=== PATIENT | male | born 1945 | race Caucasian/White ===

== ENCOUNTER → 2023-09-09 08:15 | Outpatient (REF) | payer MEDICARE, SELFPAY ==
[2023-09-09 10:01] LABS: Hematocrit 37.2 % (39.0-52.0); Hemoglobin 11.9 g/dL (13.0-18.0); Mean Corpuscular Volume 93.7 fL (80.0-94.0); Mean Platelet Volume 12.5 fL (7.4-10.4); Platelet Count 120 10^3/uL (130-400); Red Blood Cell Count 3.97 10^6/uL (4.70-6.10); Red Cell Dist. Width 18.1 % (11.5-14.5); White Blood Cell Count 21.5 10^3/uL (4.8-10.8)
[2023-09-09 10:20] LABS: ALT (SGPT) 33 U/L (0-50); AST (SGOT) 44 U/L (17-59); Albumin 3.4 g/dl (3.5-5.0); Alkaline Phosphatase 206 U/L (38-126); Blood Urea Nitrogen 12 mg/dl (9-20); Calcium 9.1 mg/dl (8.4-10.2); Carbon Dioxide 24 mmol/L (22-30); Chloride 104 mmol/L (98-107); Glucose 126 mg/dl (70-99); Potassium 3.7 mmol/L (3.5-5.1); Sodium 138 mmol/L (135-145); Total Bilirubin 0.5 mg/dl (0.2-1.3); Total Protein 5.8 g/dl (6.3-8.2); eGFR > 60.00
[2023-09-09 11:23] LABS: Atypical Lymphocytes 4 %; Band Neutrophils 14 % (0-3); Eosinophils 2 % (0-6); Lymphocytes 7 % (20-51); Metamyelocytes 5 % (-); Monocytes 10 % (2-9); Segmented Neutrophils 56 % (42-75)
[2023-09-09 11:24] LABS: Anisocytosis 1+; Normal RBC Morphology No; Platelets Checked Yes
[2023-09-09 11:25] LABS: Hypochromasia 1+; Ovalocytes 1+; Polychromasia 1+
[2023-09-09 11:26] LABS: Acanthocytes FEW; Total Cells Counted 100
== END ==
LOC: REG 08:15
PROVIDERS: ATTENDING PHYSICIAN Internal Medicine Cardiovascular Disease; FAMILY PHYSICIAN Family Medicine; REFERRING PHYSICIAN Nurse Practitioner Adult Health
DX: C78.7 Secondary malignant neoplasm of liver and intrahepatic bile duct (principal); C18.2 Malignant neoplasm of ascending colon; D64.9 Anemia, unspecified; D50.9 Iron deficiency anemia, unspecified; Z95.2 Presence of prosthetic heart valve; I48.0 Paroxysmal atrial fibrillation; Z79.01 Long term (current) use of anticoagulants
CPT/HCPCS: 36415; 80053; 85025; 85610

== ENCOUNTER → 2023-09-23 09:04 | Outpatient (REF) | payer MEDICARE, SELFPAY ==
[2023-09-23 09:57] LABS: % Basophils 0.4 % (0-2); % Eosinophils 0.9 % (0-6); % Immature Granulocytes 2.8 % (0-0.5); % Lymphocytes 13.2 % (20.5-51.1); % Monocytes 15.1 % (1.7-9.3); % Neutrophils 67.6 % (42.2-75.2); Absolute Basophils 0.1 10^3/uL (0-0.2); Absolute Eosinophils 0.1 10^3/uL (0-0.7); Absolute Immature Granulocytes 0.4 10^3/uL (0-0.05); Absolute Lymphocytes 1.8 10^3/uL (1.2-3.4); Absolute Neutrophils 9.1 10^3/uL (1.4-6.5); Hematocrit 34.9 % (39.0-52.0); Hemoglobin 11.4 g/dL (13.0-18.0); Mean Corp Hgb Conc. 32.7 g/dL (33.0-37.0); Mean Corpuscular Volume 91.8 fL (80.0-94.0); Nucleated Red Blood Cells % 0 % (-); Red Cell Dist. Width 18.3 % (11.5-14.5); White Blood Cell Count 13.4 10^3/uL (4.8-10.8)
[2023-09-23 10:08] LABS: INR 1.59; PT 18.8 Sec (11.4-14.6)
[2023-09-23 10:33] LABS: ALT (SGPT) 33 U/L (0-50); AST (SGOT) 54 U/L (17-59); Albumin 3.8 g/dl (3.5-5.0); Alkaline Phosphatase 231 U/L (38-126); Blood Urea Nitrogen 12 mg/dl (9-20); Calcium 8.8 mg/dl (8.4-10.2); Carbon Dioxide 23 mmol/L (22-30); Chloride 107 mmol/L (98-107); Glucose 132 mg/dl (70-99); Potassium 3.8 mmol/L (3.5-5.1); Sodium 136 mmol/L (135-145); Total Bilirubin 0.5 mg/dl (0.2-1.3); Total Protein 6.1 g/dl (6.3-8.2); eGFR > 60.00
[2023-09-23 10:56] LABS: Platelet Count 96 10^3/uL (130-400)
== END ==
LOC: REG 09:04
PROVIDERS: ATTENDING PHYSICIAN Nurse Practitioner Adult Health; FAMILY PHYSICIAN Family Medicine; REFERRING PHYSICIAN Internal Medicine Cardiovascular Disease
DX: Z95.2 Presence of prosthetic heart valve (principal); I48.0 Paroxysmal atrial fibrillation; Z79.01 Long term (current) use of anticoagulants; C78.7 Secondary malignant neoplasm of liver and intrahepatic bile duct; C18.2 Malignant neoplasm of ascending colon; D64.9 Anemia, unspecified; D50.9 Iron deficiency anemia, unspecified
CPT/HCPCS: 36415; 80053; 85025; 85610

== ENCOUNTER → 2023-10-07 10:02 | Outpatient (REF) | payer MEDICARE, SELFPAY ==
[2023-10-07 11:23] LABS: % Basophils 0.5 % (0-2); % Eosinophils 1.2 % (0-6); % Immature Granulocytes 4.9 % (0-0.5); % Lymphocytes 12.1 % (20.5-51.1); % Neutrophils 68.3 % (42.2-75.2); Absolute Basophils 0.1 10^3/uL (0-0.2); Absolute Eosinophils 0.2 10^3/uL (0-0.7); Absolute Immature Granulocytes 0.6 10^3/uL (0-0.05); Absolute Lymphocytes 1.6 10^3/uL (1.2-3.4); Absolute Monocytes 1.7 10^3/uL (0.1-0.6); Absolute Neutrophils 8.9 10^3/uL (1.4-6.5); Hematocrit 35.1 % (39.0-52.0); Hemoglobin 11.3 g/dL (13.0-18.0); Mean Corp Hgb Conc. 32.2 g/dL (33.0-37.0); Mean Corpuscular Hgb 30.2 pg (27.0-31.0); Mean Corpuscular Volume 93.9 fL (80.0-94.0); Mean Platelet Volume 11.9 fL (7.4-10.4); Nucleated Red Blood Cells % 0 % (-); Platelet Count 95 10^3/uL (130-400); Red Blood Cell Count 3.74 10^6/uL (4.70-6.10); White Blood Cell Count 12.9 10^3/uL (4.8-10.8)
[2023-10-07 11:41] LABS: INR 1.71; PT 19.9 Sec (11.4-14.6)
[2023-10-07 11:53] LABS: ALT (SGPT) 43 U/L (0-50); AST (SGOT) 58 U/L (17-59); Albumin 3.8 g/dl (3.5-5.0); Alkaline Phosphatase 194 U/L (38-126); Blood Urea Nitrogen 13 mg/dl (9-20); Calcium 9.2 mg/dl (8.4-10.2); Carbon Dioxide 29 mmol/L (22-30); Chloride 102 mmol/L (98-107); Glucose 209 mg/dl (70-99); Potassium 4.3 mmol/L (3.5-5.1); Sodium 136 mmol/L (135-145); Total Bilirubin 0.5 mg/dl (0.2-1.3); Total Protein 6.1 g/dl (6.3-8.2); eGFR > 60.00
== END ==
LOC: REG 10:02
PROVIDERS: ATTENDING PHYSICIAN Nurse Practitioner Adult Health; FAMILY PHYSICIAN Family Medicine; REFERRING PHYSICIAN Internal Medicine Cardiovascular Disease
DX: Z95.2 Presence of prosthetic heart valve (principal); Z86.73 Personal history of transient ischemic attack (TIA), and cerebral infarction without residual deficits; Z79.01 Long term (current) use of anticoagulants; C78.7 Secondary malignant neoplasm of liver and intrahepatic bile duct; C18.2 Malignant neoplasm of ascending colon; D64.9 Anemia, unspecified; D50.9 Iron deficiency anemia, unspecified
CPT/HCPCS: 36415; 80053; 85025; 85610

== ENCOUNTER → 2023-10-14 09:35 | Outpatient (REF) | payer MEDICARE, SELFPAY ==
[2023-10-14 11:37] LABS: CEA 16.1 ng/ml
== END ==
LOC: RAD 09:35
PROVIDERS: ATTENDING PHYSICIAN Internal Medicine Hematology & Oncology; FAMILY PHYSICIAN Family Medicine
DX: C78.7 Secondary malignant neoplasm of liver and intrahepatic bile duct (principal); C18.2 Malignant neoplasm of ascending colon; D64.9 Anemia, unspecified; D50.9 Iron deficiency anemia, unspecified
CPT/HCPCS: 36415; 71260; 74177; 82378; Q9967

== ENCOUNTER → 2023-10-27 09:56 | Outpatient (REF) | payer MEDICARE, SELFPAY ==
[2023-10-27 10:55] LABS: % Basophils 0.3 % (0-2); % Eosinophils 0.9 % (0-6); % Immature Granulocytes 4.3 % (0-0.5); % Lymphocytes 10.1 % (20.5-51.1); % Monocytes 9.5 % (1.7-9.3); % Neutrophils 74.9 % (42.2-75.2); Absolute Eosinophils 0.1 10^3/uL (0-0.7); Absolute Immature Granulocytes 0.6 10^3/uL (0-0.05); Absolute Lymphocytes 1.3 10^3/uL (1.2-3.4); Absolute Monocytes 1.3 10^3/uL (0.1-0.6); Hematocrit 36.1 % (39.0-52.0); Hemoglobin 11.2 g/dL (13.0-18.0); Mean Corpuscular Hgb 29.9 pg (27.0-31.0); Mean Corpuscular Volume 96.3 fL (80.0-94.0); Mean Platelet Volume 12.8 fL (7.4-10.4); Nucleated Red Blood Cells % 0 % (-); Platelet Count 127 10^3/uL (130-400); Red Blood Cell Count 3.75 10^6/uL (4.70-6.10); Red Cell Dist. Width 17.7 % (11.5-14.5); White Blood Cell Count 13.3 10^3/uL (4.8-10.8)
[2023-10-27 11:11] LABS: INR 2.08; PT 23.3 Sec (11.4-14.6)
[2023-10-27 12:25] LABS: ALT (SGPT) 30 U/L (0-50); AST (SGOT) 58 U/L (17-59); Albumin 3.9 g/dl (3.5-5.0); Alkaline Phosphatase 148 U/L (38-126); Blood Urea Nitrogen 14 mg/dl (9-20); Calcium 9.2 mg/dl (8.4-10.2); Carbon Dioxide 22 mmol/L (22-30); Chloride 108 mmol/L (98-107); Glucose 278 mg/dl (70-99); Potassium 4.1 mmol/L (3.5-5.1); Sodium 136 mmol/L (135-145); Total Bilirubin 0.6 mg/dl (0.2-1.3); Total Protein 6.2 g/dl (6.3-8.2); eGFR > 60.00
== END ==
LOC: REG 09:56
PROVIDERS: ATTENDING PHYSICIAN Nurse Practitioner Adult Health; FAMILY PHYSICIAN Family Medicine; REFERRING PHYSICIAN Internal Medicine Cardiovascular Disease
DX: Z95.2 Presence of prosthetic heart valve (principal); Z86.73 Personal history of transient ischemic attack (TIA), and cerebral infarction without residual deficits; C18.2 Malignant neoplasm of ascending colon; D64.9 Anemia, unspecified; D50.9 Iron deficiency anemia, unspecified
CPT/HCPCS: 36415; 80053; 85025; 85610

== ENCOUNTER → 2023-11-10 08:29 | Outpatient (REF) | payer MEDICARE, SELFPAY ==
[2023-11-10 09:25] LABS: % Basophils 0.6 % (0-2); % Eosinophils 1.4 % (0-6); % Immature Granulocytes 0.4 % (0-0.5); % Lymphocytes 15.7 % (20.5-51.1); % Monocytes 13.5 % (1.7-9.3); % Neutrophils 68.4 % (42.2-75.2); Absolute Eosinophils 0.1 10^3/uL (0-0.7); Absolute Lymphocytes 0.8 10^3/uL (1.2-3.4); Absolute Monocytes 0.7 10^3/uL (0.1-0.6); Absolute Neutrophils 3.4 10^3/uL (1.4-6.5); Hematocrit 33.7 % (39.0-52.0); Hemoglobin 10.5 g/dL (13.0-18.0); Mean Corp Hgb Conc. 31.2 g/dL (33.0-37.0); Mean Corpuscular Hgb 30.2 pg (27.0-31.0); Mean Corpuscular Volume 96.8 fL (80.0-94.0); Mean Platelet Volume 12.8 fL (7.4-10.4); Nucleated Red Blood Cells % 0 % (-); Platelet Count 101 10^3/uL (130-400); Red Blood Cell Count 3.48 10^6/uL (4.70-6.10); Red Cell Dist. Width 16.4 % (11.5-14.5)
[2023-11-10 09:38] LABS: Protein/creatinine Ratio 0.7; Urine Protein 63 mg/dl
[2023-11-10 09:39] LABS: INR 2.49; PT 26.8 Sec (11.4-14.6)
[2023-11-10 09:49] LABS: ALT (SGPT) 22 U/L (0-50); AST (SGOT) 38 U/L (17-59); Albumin 3.8 g/dl (3.5-5.0); Alkaline Phosphatase 77 U/L (38-126); Blood Urea Nitrogen 18 mg/dl (9-20); Calcium 9.4 mg/dl (8.4-10.2); Carbon Dioxide 22 mmol/L (22-30); Chloride 104 mmol/L (98-107); Glucose 235 mg/dl (70-99); Potassium 4.3 mmol/L (3.5-5.1); Sodium 134 mmol/L (135-145); Total Bilirubin 0.6 mg/dl (0.2-1.3); Total Protein 6.2 g/dl (6.3-8.2); eGFR > 60.00
== END ==
LOC: REG 08:29
PROVIDERS: ATTENDING PHYSICIAN Internal Medicine Cardiovascular Disease; FAMILY PHYSICIAN Internal Medicine Hematology & Oncology
DX: Z95.2 Presence of prosthetic heart valve (principal); C78.7 Secondary malignant neoplasm of liver and intrahepatic bile duct; C18.2 Malignant neoplasm of ascending colon; D64.9 Anemia, unspecified; D50.9 Iron deficiency anemia, unspecified
CPT/HCPCS: 36415; 80053; 82570; 84156; 85025; 85610

== ENCOUNTER → 2023-11-24 08:04 | Outpatient (REF) | payer MEDICARE, SELFPAY ==
[2023-11-24 09:19] LABS: INR 2.61; PT 27.8 Sec (11.4-14.6)
[2023-11-24 09:20] LABS: % Basophils 0.8 % (0-2); % Eosinophils 2.5 % (0-6); % Immature Granulocytes 0.3 % (0-0.5); % Lymphocytes 16.7 % (20.5-51.1); % Monocytes 11.4 % (1.7-9.3); % Neutrophils 68.3 % (42.2-75.2); Absolute Eosinophils 0.1 10^3/uL (0-0.7); Absolute Lymphocytes 0.6 10^3/uL (1.2-3.4); Absolute Monocytes 0.4 10^3/uL (0.1-0.6); Absolute Neutrophils 2.5 10^3/uL (1.4-6.5); Hematocrit 31.1 % (39.0-52.0); Hemoglobin 10.1 g/dL (13.0-18.0); Mean Corp Hgb Conc. 32.5 g/dL (33.0-37.0); Mean Corpuscular Hgb 30.6 pg (27.0-31.0); Mean Corpuscular Volume 94.2 fL (80.0-94.0); Nucleated Red Blood Cells % 0 % (-); Red Cell Dist. Width 15.6 % (11.5-14.5); White Blood Cell Count 3.6 10^3/uL (4.8-10.8)
[2023-11-24 09:53] LABS: ALT (SGPT) 52 U/L (0-50); AST (SGOT) 86 U/L (17-59); Albumin 3.8 g/dl (3.5-5.0); Alkaline Phosphatase 83 U/L (38-126); Blood Urea Nitrogen 15 mg/dl (9-20); Calcium 9.1 mg/dl (8.4-10.2); Carbon Dioxide 20 mmol/L (22-30); Chloride 108 mmol/L (98-107); Glucose 118 mg/dl (70-99); Potassium 4.1 mmol/L (3.5-5.1); Sodium 135 mmol/L (135-145); Total Bilirubin 0.5 mg/dl (0.2-1.3); Total Protein 6.2 g/dl (6.3-8.2); eGFR > 60.00
[2023-11-24 10:24] LABS: Urine Protein 85 mg/dl (0-12)
[2023-11-24 10:41] LABS: Mean Platelet Volume 12.1 fL (7.4-10.4); Platelet Count 88 10^3/uL (130-400)
[2023-11-24 11:23] LABS: Glycohemoglobin (HgbA1c) 7.7 % (4.0-5.6)
[2023-11-24 15:37] LABS: Microalbumin, Random Urine 36.2 mg/dl (0.6-1.7); Microalbumin/creatinine Ratio 375.5 mg/g
== END ==
LOC: REG 08:04
PROVIDERS: ATTENDING PHYSICIAN Internal Medicine Hematology & Oncology; FAMILY PHYSICIAN Family Medicine; REFERRING PHYSICIAN Internal Medicine Cardiovascular Disease
DX: E11.40 Type 2 diabetes mellitus with diabetic neuropathy, unspecified (principal); Z95.2 Presence of prosthetic heart valve; Z86.73 Personal history of transient ischemic attack (TIA), and cerebral infarction without residual deficits; Z79.01 Long term (current) use of anticoagulants; C78.7 Secondary malignant neoplasm of liver and intrahepatic bile duct; C18.2 Malignant neoplasm of ascending colon; D64.9 Anemia, unspecified; D50.9 Iron deficiency anemia, unspecified
CPT/HCPCS: 36415; 80053; 82043; 82570; 83036; 84156; 85025; 85610

== ENCOUNTER → 2023-12-08 08:54 | Outpatient (REF) | payer MEDICARE, SELFPAY ==
[2023-12-08 09:59] LABS: % Basophils 0.7 % (0-2); % Eosinophils 1.4 % (0-6); % Immature Granulocytes 0.3 % (0-0.5); % Lymphocytes 20.2 % (20.5-51.1); % Monocytes 16.1 % (1.7-9.3); % Neutrophils 61.3 % (42.2-75.2); Absolute Lymphocytes 0.6 10^3/uL (1.2-3.4); Absolute Monocytes 0.5 10^3/uL (0.1-0.6); Absolute Neutrophils 1.8 10^3/uL (1.4-6.5); Hematocrit 30.9 % (39.0-52.0); Hemoglobin 9.9 g/dL (13.0-18.0); Mean Corpuscular Hgb 30.3 pg (27.0-31.0); Mean Corpuscular Volume 94.5 fL (80.0-94.0); Mean Platelet Volume 11.8 fL (7.4-10.4); Nucleated Red Blood Cells % 0 % (-); Platelet Count 82 10^3/uL (130-400); Red Blood Cell Count 3.27 10^6/uL (4.70-6.10); Red Cell Dist. Width 15.4 % (11.5-14.5); White Blood Cell Count 2.9 10^3/uL (4.8-10.8)
[2023-12-08 10:11] LABS: PT 34.4 Sec (11.4-14.6)
[2023-12-08 10:12] LABS: Urine Protein 73 mg/dl (0-12)
[2023-12-08 10:22] LABS: ALT (SGPT) 41 U/L (0-50); AST (SGOT) 60 U/L (17-59); Albumin 3.6 g/dl (3.5-5.0); Alkaline Phosphatase 71 U/L (38-126); Blood Urea Nitrogen 18 mg/dl (9-20); Calcium 9.1 mg/dl (8.4-10.2); Carbon Dioxide 21 mmol/L (22-30); Chloride 105 mmol/L (98-107); Glucose 194 mg/dl (70-99); Potassium 4.2 mmol/L (3.5-5.1); Sodium 133 mmol/L (135-145); Total Bilirubin 0.5 mg/dl (0.2-1.3); eGFR > 60.00
== END ==
LOC: RAD 08:54
PROVIDERS: ATTENDING PHYSICIAN Internal Medicine Hematology & Oncology; FAMILY PHYSICIAN Family Medicine; REFERRING PHYSICIAN Internal Medicine Cardiovascular Disease
DX: Z95.2 Presence of prosthetic heart valve (principal); Z86.73 Personal history of transient ischemic attack (TIA), and cerebral infarction without residual deficits; Z79.01 Long term (current) use of anticoagulants; C78.7 Secondary malignant neoplasm of liver and intrahepatic bile duct; C18.2 Malignant neoplasm of ascending colon; D64.9 Anemia, unspecified; D50.9 Iron deficiency anemia, unspecified
CPT/HCPCS: 36415; 80053; 82570; 84156; 85025; 85610

== ENCOUNTER → 2023-12-22 08:40 | Outpatient (REF) | payer MEDICARE, SELFPAY ==
[2023-12-22 09:20] LABS: % Basophils 0.3 % (0-2); % Eosinophils 1.1 % (0-6); % Lymphocytes 21.3 % (20.5-51.1); % Monocytes 15.5 % (1.7-9.3); % Neutrophils 61.8 % (42.2-75.2); Absolute Lymphocytes 0.7 10^3/uL (1.2-3.4); Absolute Monocytes 0.5 10^3/uL (0.1-0.6); Absolute Neutrophils 2.2 10^3/uL (1.4-6.5); Hematocrit 32.3 % (39.0-52.0); Hemoglobin 10.3 g/dL (13.0-18.0); Mean Corp Hgb Conc. 31.9 g/dL (33.0-37.0); Mean Corpuscular Volume 94.2 fL (80.0-94.0); Mean Platelet Volume 11.8 fL (7.4-10.4); Nucleated Red Blood Cells % 0 % (-); Platelet Count 88 10^3/uL (130-400); Red Blood Cell Count 3.43 10^6/uL (4.70-6.10); Red Cell Dist. Width 15.1 % (11.5-14.5); White Blood Cell Count 3.5 10^3/uL (4.8-10.8)
[2023-12-22 09:41] LABS: INR 2.74; PT 28.9 Sec (11.4-14.6)
[2023-12-22 09:55] LABS: ALT (SGPT) 33 U/L (0-50); AST (SGOT) 62 U/L (17-59); Albumin 3.9 g/dl (3.5-5.0); Alkaline Phosphatase 68 U/L (38-126); Blood Urea Nitrogen 21 mg/dl (9-20); Calcium 9.3 mg/dl (8.4-10.2); Carbon Dioxide 21 mmol/L (22-30); Chloride 108 mmol/L (98-107); Glucose 115 mg/dl (70-99); Potassium 4.4 mmol/L (3.5-5.1); Sodium 137 mmol/L (135-145); Total Bilirubin 0.6 mg/dl (0.2-1.3); Total Protein 6.3 g/dl (6.3-8.2); eGFR > 60.00
[2023-12-22 10:05] LABS: Urine Protein 85 mg/dl (0-12)
== END ==
LOC: REG 08:40
PROVIDERS: ATTENDING PHYSICIAN Internal Medicine Hematology & Oncology; FAMILY PHYSICIAN Internal Medicine Cardiovascular Disease; REFERRING PHYSICIAN Family Medicine
DX: Z95.2 Presence of prosthetic heart valve (principal); Z86.73 Personal history of transient ischemic attack (TIA), and cerebral infarction without residual deficits; Z79.01 Long term (current) use of anticoagulants; C78.7 Secondary malignant neoplasm of liver and intrahepatic bile duct; C18.2 Malignant neoplasm of ascending colon; D64.9 Anemia, unspecified; D50.9 Iron deficiency anemia, unspecified
CPT/HCPCS: 36415; 80053; 82570; 84156; 85025; 85610

== ENCOUNTER → 2024-01-05 09:37 | Outpatient (REF) | payer MEDICARE, SELFPAY ==
[2024-01-05 10:32] LABS: % Basophils 0.3 % (0-2); % Eosinophils 1.2 % (0-6); % Immature Granulocytes 0.3 % (0-0.5); % Lymphocytes 23.6 % (20.5-51.1); % Monocytes 15.5 % (1.7-9.3); % Neutrophils 59.1 % (42.2-75.2); Absolute Lymphocytes 0.8 10^3/uL (1.2-3.4); Absolute Monocytes 0.5 10^3/uL (0.1-0.6); Absolute Neutrophils 1.9 10^3/uL (1.4-6.5); Hematocrit 31.2 % (39.0-52.0); Hemoglobin 10.3 g/dL (13.0-18.0); Mean Corpuscular Hgb 29.9 pg (27.0-31.0); Mean Corpuscular Volume 90.7 fL (80.0-94.0); Mean Platelet Volume 11.4 fL (7.4-10.4); Nucleated Red Blood Cells % 0 % (-); Platelet Count 106 10^3/uL (130-400); Red Blood Cell Count 3.44 10^6/uL (4.70-6.10); Red Cell Dist. Width 15.6 % (11.5-14.5); White Blood Cell Count 3.2 10^3/uL (4.8-10.8)
[2024-01-05 10:45] LABS: INR 2.19; PT 24.2 Sec (11.4-14.6)
[2024-01-05 11:04] LABS: ALT (SGPT) 41 U/L (0-50); AST (SGOT) 66 U/L (17-59); Albumin 3.9 g/dl (3.5-5.0); Alkaline Phosphatase 66 U/L (38-126); Blood Urea Nitrogen 16 mg/dl (9-20); Calcium 9.1 mg/dl (8.4-10.2); Carbon Dioxide 20 mmol/L (22-30); Chloride 110 mmol/L (98-107); Glucose 108 mg/dl (70-99); Potassium 4.2 mmol/L (3.5-5.1); Sodium 138 mmol/L (135-145); Total Bilirubin 0.6 mg/dl (0.2-1.3); Total Protein 6.3 g/dl (6.3-8.2); eGFR > 60.00
[2024-01-05 11:22] LABS: Urine Protein 52 mg/dl (0-12)
== END ==
LOC: REG 09:37
PROVIDERS: ATTENDING PHYSICIAN Internal Medicine Hematology & Oncology; FAMILY PHYSICIAN Family Medicine; REFERRING PHYSICIAN Internal Medicine Cardiovascular Disease
DX: Z95.2 Presence of prosthetic heart valve (principal); Z86.73 Personal history of transient ischemic attack (TIA), and cerebral infarction without residual deficits; Z79.01 Long term (current) use of anticoagulants; C78.7 Secondary malignant neoplasm of liver and intrahepatic bile duct; C18.2 Malignant neoplasm of ascending colon; D64.9 Anemia, unspecified; D50.9 Iron deficiency anemia, unspecified
CPT/HCPCS: 36415; 80053; 82570; 84156; 85025; 85610

== ENCOUNTER → 2024-01-19 10:01 | Outpatient (REF) | payer MEDICARE, SELFPAY ==
[2024-01-19 11:19] LABS: % Basophils 0.5 % (0-2); % Eosinophils 1.1 % (0-6); % Immature Granulocytes 0.3 % (0-0.5); % Lymphocytes 20.2 % (20.5-51.1); % Monocytes 17.8 % (1.7-9.3); % Neutrophils 60.1 % (42.2-75.2); Absolute Lymphocytes 0.8 10^3/uL (1.2-3.4); Absolute Monocytes 0.7 10^3/uL (0.1-0.6); Absolute Neutrophils 2.3 10^3/uL (1.4-6.5); Hematocrit 31.5 % (39.0-52.0); Hemoglobin 10.4 g/dL (13.0-18.0); Mean Corpuscular Hgb 29.5 pg (27.0-31.0); Mean Corpuscular Volume 89.2 fL (80.0-94.0); Mean Platelet Volume 12.7 fL (7.4-10.4); Nucleated Red Blood Cells % 0 % (-); Platelet Count 111 10^3/uL (130-400); Red Blood Cell Count 3.53 10^6/uL (4.70-6.10); Red Cell Dist. Width 16.1 % (11.5-14.5); White Blood Cell Count 3.8 10^3/uL (4.8-10.8)
[2024-01-19 11:44] LABS: ALT (SGPT) 37 U/L (0-50); AST (SGOT) 63 U/L (17-59); Albumin 3.8 g/dl (3.5-5.0); Alkaline Phosphatase 58 U/L (38-126); Blood Urea Nitrogen 25 mg/dl (9-20); Calcium 9.4 mg/dl (8.4-10.2); Carbon Dioxide 23 mmol/L (22-30); Chloride 105 mmol/L (98-107); Glucose 175 mg/dl (70-99); Potassium 4.7 mmol/L (3.5-5.1); Sodium 135 mmol/L (135-145); Total Bilirubin 0.7 mg/dl (0.2-1.3); Total Protein 6.2 g/dl (6.3-8.2); eGFR 56.93
[2024-01-19 11:48] LABS: INR 2.17
[2024-01-19 15:04] LABS: Protein/creatinine Ratio 0.5; Urine Protein 49 mg/dl
[2024-01-19 19:24] LABS: CEA 27.1 ng/ml
== END ==
LOC: REG 10:01
PROVIDERS: ATTENDING PHYSICIAN Internal Medicine Hematology & Oncology; FAMILY PHYSICIAN Family Medicine
DX: Z95.2 Presence of prosthetic heart valve (principal); Z86.73 Personal history of transient ischemic attack (TIA), and cerebral infarction without residual deficits; Z79.01 Long term (current) use of anticoagulants; R79.89 Other specified abnormal findings of blood chemistry
CPT/HCPCS: 36415; 80053; 82378; 82570; 84156; 85025; 85610

== ENCOUNTER → 2024-01-28 07:36 | Outpatient (REF) | payer MEDICARE, SELFPAY | LOC: RAD 07:36 | PROVIDERS: ATTENDING PHYSICIAN Internal Medicine Hematology & Oncology; FAMILY PHYSICIAN Family Medicine | DX: C18.2 Malignant neoplasm of ascending colon (principal); D64.9 Anemia, unspecified; D50.9 Iron deficiency anemia, unspecified; C78.7 Secondary malignant neoplasm of liver and intrahepatic bile duct | CPT/HCPCS: 71260; 74177; Q9967 ==

== ENCOUNTER → 2024-02-02 08:01 | Outpatient (REF) | payer MEDICARE, SELFPAY ==
[2024-02-02 08:45] LABS: % Basophils 0.5 % (0-2); % Eosinophils 1.5 % (0-6); % Immature Granulocytes 0.2 % (0-0.5); % Lymphocytes 23.1 % (20.5-51.1); % Monocytes 15.6 % (1.7-9.3); % Neutrophils 59.1 % (42.2-75.2); Absolute Eosinophils 0.1 10^3/uL (0-0.7); Absolute Monocytes 0.6 10^3/uL (0.1-0.6); Absolute Neutrophils 2.4 10^3/uL (1.4-6.5); Hematocrit 33.2 % (39.0-52.0); Hemoglobin 10.5 g/dL (13.0-18.0); Mean Corp Hgb Conc. 31.6 g/dL (33.0-37.0); Mean Corpuscular Hgb 29.2 pg (27.0-31.0); Mean Corpuscular Volume 92.2 fL (80.0-94.0); Nucleated Red Blood Cells % 0 % (-); Platelet Count 123 10^3/uL (130-400); Red Cell Dist. Width 16.2 % (11.5-14.5); White Blood Cell Count 4.1 10^3/uL (4.8-10.8)
[2024-02-02 08:53] LABS: INR 3.29; PT 33.5 Sec (11.4-14.6)
[2024-02-02 08:59] LABS: Protein/creatinine Ratio 0.6; Urine Protein 61 mg/dl
[2024-02-02 09:09] LABS: ALT (SGPT) 44 U/L (0-50); AST (SGOT) 87 U/L (17-59); Albumin 3.9 g/dl (3.5-5.0); Alkaline Phosphatase 60 U/L (38-126); Blood Urea Nitrogen 23 mg/dl (9-20); Calcium 9.4 mg/dl (8.4-10.2); Carbon Dioxide 22 mmol/L (22-30); Chloride 109 mmol/L (98-107); Glucose 85 mg/dl (70-99); Potassium 4.4 mmol/L (3.5-5.1); Sodium 137 mmol/L (135-145); Total Bilirubin 0.7 mg/dl (0.2-1.3); Total Protein 6.3 g/dl (6.3-8.2); eGFR > 60.00
== END ==
LOC: REG 08:01
PROVIDERS: Internal Medicine Hematology & Oncology; ATTENDING PHYSICIAN Internal Medicine Cardiovascular Disease; FAMILY PHYSICIAN Family Medicine
DX: Z95.2 Presence of prosthetic heart valve (principal); Z86.73 Personal history of transient ischemic attack (TIA), and cerebral infarction without residual deficits; Z79.01 Long term (current) use of anticoagulants; C78.7 Secondary malignant neoplasm of liver and intrahepatic bile duct; C18.2 Malignant neoplasm of ascending colon; D64.9 Anemia, unspecified; D50.9 Iron deficiency anemia, unspecified
CPT/HCPCS: 36415; 80053; 82570; 84156; 85025; 85610

== ENCOUNTER → 2024-02-16 08:34 | Outpatient (REF) | payer MEDICARE, SELFPAY ==
[2024-02-16 09:59] LABS: INR 2.81; PT 29.5 Sec (11.4-14.6)
[2024-02-16 10:06] LABS: Urine Protein 74 mg/dl (0-12)
[2024-02-16 10:41] LABS: ALT (SGPT) 62 U/L (0-50); AST (SGOT) 93 U/L (17-59); Albumin 4.1 g/dl (3.5-5.0); Alkaline Phosphatase 66 U/L (38-126); Blood Urea Nitrogen 20 mg/dl (9-20); Calcium 9.2 mg/dl (8.4-10.2); Carbon Dioxide 20 mmol/L (22-30); Chloride 107 mmol/L (98-107); Glucose 96 mg/dl (70-99); Potassium 4.3 mmol/L (3.5-5.1); Sodium 136 mmol/L (135-145); Total Bilirubin 0.8 mg/dl (0.2-1.3); Total Protein 6.5 g/dl (6.3-8.2); eGFR > 60.00
[2024-02-16 12:59] LABS: % Basophils 0.6 % (0-2); % Eosinophils 1.3 % (0-6); % Immature Granulocytes 0.2 % (0-0.5); % Monocytes 13.9 % (1.7-9.3); Absolute Eosinophils 0.1 10^3/uL (0-0.7); Absolute Monocytes 0.7 10^3/uL (0.1-0.6); Absolute Neutrophils 3.5 10^3/uL (1.4-6.5); Hematocrit 32.7 % (39.0-52.0); Hemoglobin 10.7 g/dL (13.0-18.0); Mean Corp Hgb Conc. 32.7 g/dL (33.0-37.0); Mean Corpuscular Hgb 29.2 pg (27.0-31.0); Mean Corpuscular Volume 89.1 fL (80.0-94.0); Mean Platelet Volume 12.1 fL (7.4-10.4); Nucleated Red Blood Cells % 0 % (-); Platelet Count 156 10^3/uL (130-400); Red Blood Cell Count 3.67 10^6/uL (4.70-6.10); White Blood Cell Count 5.3 10^3/uL (4.8-10.8)
== END ==
LOC: REG 08:34
PROVIDERS: ATTENDING PHYSICIAN Internal Medicine Cardiovascular Disease; FAMILY PHYSICIAN Family Medicine; REFERRING PHYSICIAN Internal Medicine Hematology & Oncology
DX: Z95.2 Presence of prosthetic heart valve (principal); Z86.73 Personal history of transient ischemic attack (TIA), and cerebral infarction without residual deficits; Z79.01 Long term (current) use of anticoagulants; C78.7 Secondary malignant neoplasm of liver and intrahepatic bile duct; C18.2 Malignant neoplasm of ascending colon; D64.9 Anemia, unspecified; D50.9 Iron deficiency anemia, unspecified
CPT/HCPCS: 36415; 80053; 82570; 84156; 85025; 85610

== ENCOUNTER → 2024-03-01 09:22 | Outpatient (REF) | payer MEDICARE, SELFPAY ==
[2024-03-01 10:44] LABS: % Basophils 0.7 % (0-2); % Eosinophils 1.3 % (0-6); % Immature Granulocytes 0.2 % (0-0.5); % Lymphocytes 16.2 % (20.5-51.1); % Neutrophils 67.6 % (42.2-75.2); Absolute Eosinophils 0.1 10^3/uL (0-0.7); Absolute Lymphocytes 0.9 10^3/uL (1.2-3.4); Absolute Monocytes 0.8 10^3/uL (0.1-0.6); Absolute Neutrophils 3.6 10^3/uL (1.4-6.5); Mean Corp Hgb Conc. 32.3 g/dL (33.0-37.0); Mean Corpuscular Hgb 28.3 pg (27.0-31.0); Mean Corpuscular Volume 87.8 fL (80.0-94.0); Mean Platelet Volume 11.9 fL (7.4-10.4); Nucleated Red Blood Cells % 0 % (-); Platelet Count 143 10^3/uL (130-400); Red Blood Cell Count 3.53 10^6/uL (4.70-6.10); Red Cell Dist. Width 16.9 % (11.5-14.5); White Blood Cell Count 5.4 10^3/uL (4.8-10.8)
[2024-03-01 10:54] LABS: INR 1.95; PT 22.1 Sec (11.4-14.6)
[2024-03-01 11:13] LABS: ALT (SGPT) 60 U/L (0-50); AST (SGOT) 84 U/L (17-59); Albumin 3.9 g/dl (3.5-5.0); Alkaline Phosphatase 68 U/L (38-126); Blood Urea Nitrogen 19 mg/dl (9-20); Carbon Dioxide 22 mmol/L (22-30); Chloride 106 mmol/L (98-107); Glucose 114 mg/dl (70-99); Potassium 4.7 mmol/L (3.5-5.1); Sodium 134 mmol/L (135-145); Total Bilirubin 0.9 mg/dl (0.2-1.3); Total Protein 6.1 g/dl (6.3-8.2); eGFR > 60.00
[2024-03-01 11:16] LABS: Protein/creatinine Ratio 0.6; Urine Protein 73 mg/dl
== END ==
LOC: REG 09:22
PROVIDERS: ATTENDING PHYSICIAN Internal Medicine Cardiovascular Disease; FAMILY PHYSICIAN Family Medicine; OTHER PHYSICIAN Internal Medicine Hematology & Oncology
DX: Z95.2 Presence of prosthetic heart valve (principal); Z86.73 Personal history of transient ischemic attack (TIA), and cerebral infarction without residual deficits; Z79.01 Long term (current) use of anticoagulants; C78.7 Secondary malignant neoplasm of liver and intrahepatic bile duct; C18.2 Malignant neoplasm of ascending colon; D64.9 Anemia, unspecified; D50.9 Iron deficiency anemia, unspecified
CPT/HCPCS: 36415; 80053; 82570; 84156; 85025; 85610

== ENCOUNTER → 2024-03-15 08:38 | Outpatient (REF) | payer MEDICARE, SELFPAY ==
[2024-03-15 11:32] LABS: Protein/creatinine Ratio 0.8; Urine Protein 82 mg/dl
[2024-03-15 13:28] LABS: % Basophils 0.6 % (0-2); % Eosinophils 0.6 % (0-6); % Immature Granulocytes 0.2 % (0-0.5); % Lymphocytes 14.8 % (20.5-51.1); % Monocytes 16.5 % (1.7-9.3); % Neutrophils 67.3 % (42.2-75.2); Absolute Lymphocytes 0.8 10^3/uL (1.2-3.4); Absolute Monocytes 0.9 10^3/uL (0.1-0.6); Absolute Neutrophils 3.5 10^3/uL (1.4-6.5); Hematocrit 32.5 % (39.0-52.0); Hemoglobin 10.5 g/dL (13.0-18.0); Mean Corp Hgb Conc. 32.3 g/dL (33.0-37.0); Mean Corpuscular Hgb 28.8 pg (27.0-31.0); Mean Corpuscular Volume 89.3 fL (80.0-94.0); Mean Platelet Volume 12.1 fL (7.4-10.4); Nucleated Red Blood Cells % 0 % (-); Platelet Count 144 10^3/uL (130-400); Red Blood Cell Count 3.64 10^6/uL (4.70-6.10); Red Cell Dist. Width 17.1 % (11.5-14.5); White Blood Cell Count 5.2 10^3/uL (4.8-10.8)
[2024-03-15 13:48] LABS: INR 2.72; PT 28.8 Sec (11.4-14.6)
[2024-03-15 13:50] LABS: ALT (SGPT) 68 U/L (0-50); AST (SGOT) 111 U/L (17-59); Albumin 3.8 g/dl (3.5-5.0); Alkaline Phosphatase 69 U/L (38-126); Blood Urea Nitrogen 17 mg/dl (9-20); Calcium 9.1 mg/dl (8.4-10.2); Carbon Dioxide 20 mmol/L (22-30); Chloride 105 mmol/L (98-107); Glucose 107 mg/dl (70-99); Potassium 4.1 mmol/L (3.5-5.1); Sodium 133 mmol/L (135-145); Total Bilirubin 0.8 mg/dl (0.2-1.3); eGFR > 60.00
== END ==
LOC: REG 08:38
PROVIDERS: ATTENDING PHYSICIAN Internal Medicine Hematology & Oncology; FAMILY PHYSICIAN Family Medicine; REFERRING PHYSICIAN Internal Medicine Cardiovascular Disease
DX: C78.7 Secondary malignant neoplasm of liver and intrahepatic bile duct (principal); C18.2 Malignant neoplasm of ascending colon; D64.9 Anemia, unspecified; D50.9 Iron deficiency anemia, unspecified; Z95.2 Presence of prosthetic heart valve; Z86.73 Personal history of transient ischemic attack (TIA), and cerebral infarction without residual deficits; Z79.01 Long term (current) use of anticoagulants
CPT/HCPCS: 36415; 80053; 82570; 84156; 85025; 85610

== ENCOUNTER → 2024-03-29 09:08 | Outpatient (REF) | payer MEDICARE, SELFPAY ==
[2024-03-29 10:12] LABS: % Basophils 0.4 % (0-2); % Eosinophils 0.4 % (0-6); % Immature Granulocytes 0.4 % (0-0.5); % Lymphocytes 14.6 % (20.5-51.1); % Monocytes 15.8 % (1.7-9.3); % Neutrophils 68.4 % (42.2-75.2); Absolute Lymphocytes 0.7 10^3/uL (1.2-3.4); Absolute Monocytes 0.8 10^3/uL (0.1-0.6); Absolute Neutrophils 3.4 10^3/uL (1.4-6.5); Hematocrit 29.8 % (39.0-52.0); Hemoglobin 9.7 g/dL (13.0-18.0); Mean Corp Hgb Conc. 32.6 g/dL (33.0-37.0); Mean Corpuscular Hgb 28.2 pg (27.0-31.0); Mean Corpuscular Volume 86.6 fL (80.0-94.0); Mean Platelet Volume 12.5 fL (7.4-10.4); Nucleated Red Blood Cells % 0 % (-); Platelet Count 160 10^3/uL (130-400); Red Blood Cell Count 3.44 10^6/uL (4.70-6.10); Red Cell Dist. Width 17.6 % (11.5-14.5)
[2024-03-29 10:23] LABS: INR 1.87; PT 21.4 Sec (11.4-14.6)
[2024-03-29 10:39] LABS: Protein/creatinine Ratio 0.6; Urine Protein 84 mg/dl
== END ==
LOC: REG 09:08
PROVIDERS: ATTENDING PHYSICIAN Internal Medicine Hematology & Oncology; FAMILY PHYSICIAN Family Medicine; REFERRING PHYSICIAN Internal Medicine Cardiovascular Disease
DX: C78.7 Secondary malignant neoplasm of liver and intrahepatic bile duct (principal); C18.2 Malignant neoplasm of ascending colon; D64.9 Anemia, unspecified; D50.9 Iron deficiency anemia, unspecified; Z95.2 Presence of prosthetic heart valve; Z79.01 Long term (current) use of anticoagulants
CPT/HCPCS: 36415; 82570; 84156; 85025; 85610

== ENCOUNTER → 2024-04-06 08:25 | Outpatient (REF) | payer MEDICARE, SELFPAY ==
[2024-04-06 11:40] LABS: Glycohemoglobin (HgbA1c) 7.2 % (4.0-5.6)
[2024-04-08 00:27] LABS: SSA 52 (Ro)(ENA) Ab, IgG 2 AU/mL (0-40); SSA 60 (Ro)(ENA) Ab, IgG 0 AU/mL (0-40); SSB (La)(ENA) Ab, IgG 0 AU/mL (0-40)
== END ==
LOC: REG 08:25
PROVIDERS: ATTENDING PHYSICIAN Family Medicine
DX: R68.2 Dry mouth, unspecified (principal); E11.9 Type 2 diabetes mellitus without complications
CPT/HCPCS: 36415; 83036; 86235

== ENCOUNTER → 2024-04-12 08:10 | Outpatient (REF) | payer MEDICARE, SELFPAY ==
[2024-04-12 09:31] LABS: % Basophils 0.3 % (0-2); % Eosinophils 0.8 % (0-6); % Immature Granulocytes 0.3 % (0-0.5); % Lymphocytes 13.8 % (20.5-51.1); % Monocytes 14.4 % (1.7-9.3); % Neutrophils 70.4 % (42.2-75.2); Absolute Eosinophils 0.1 10^3/uL (0-0.7); Absolute Monocytes 1.1 10^3/uL (0.1-0.6); Absolute Neutrophils 5.2 10^3/uL (1.4-6.5); Hematocrit 31.2 % (39.0-52.0); Hemoglobin 10.1 g/dL (13.0-18.0); Mean Corp Hgb Conc. 32.4 g/dL (33.0-37.0); Mean Corpuscular Hgb 27.2 pg (27.0-31.0); Mean Corpuscular Volume 84.1 fL (80.0-94.0); Mean Platelet Volume 11.5 fL (7.4-10.4); Nucleated Red Blood Cells % 0 % (-); Platelet Count 173 10^3/uL (130-400); Red Blood Cell Count 3.71 10^6/uL (4.70-6.10); Red Cell Dist. Width 17.6 % (11.5-14.5); White Blood Cell Count 7.4 10^3/uL (4.8-10.8)
[2024-04-12 09:37] LABS: PT 38.3 Sec (11.4-14.6)
[2024-04-12 09:54] LABS: ALT (SGPT) 106 U/L (0-50); AST (SGOT) 182 U/L (17-59); Albumin 3.6 g/dl (3.5-5.0); Alkaline Phosphatase 87 U/L (38-126); Blood Urea Nitrogen 14 mg/dl (9-20); Carbon Dioxide 22 mmol/L (22-30); Chloride 103 mmol/L (98-107); Glucose 136 mg/dl (70-99); Potassium 4.4 mmol/L (3.5-5.1); Sodium 137 mmol/L (135-145); Total Bilirubin 0.8 mg/dl (0.2-1.3); eGFR > 60.00
[2024-04-12 10:11] LABS: Protein/creatinine Ratio 0.9; Urine Protein 96 mg/dl
== END ==
LOC: REG 08:10
PROVIDERS: ATTENDING PHYSICIAN Internal Medicine Cardiovascular Disease; FAMILY PHYSICIAN Family Medicine; REFERRING PHYSICIAN Internal Medicine Hematology & Oncology
DX: Z95.2 Presence of prosthetic heart valve (principal); Z79.01 Long term (current) use of anticoagulants; C78.7 Secondary malignant neoplasm of liver and intrahepatic bile duct; C18.2 Malignant neoplasm of ascending colon; D64.9 Anemia, unspecified; D50.9 Iron deficiency anemia, unspecified
CPT/HCPCS: 36415; 80053; 82570; 84156; 85025; 85610

== ENCOUNTER → 2024-04-26 07:55 | Outpatient (REF) | payer MEDICARE, SELFPAY ==
[2024-04-26 09:08] LABS: INR 3.14; PT 32.2 Sec (11.4-14.6)
[2024-04-26 09:22] LABS: % Basophils 0.4 % (0-2); % Eosinophils 0.6 % (0-6); % Immature Granulocytes 0.2 % (0-0.5); % Lymphocytes 19.5 % (20.5-51.1); % Monocytes 14.3 % (1.7-9.3); Absolute Monocytes 0.7 10^3/uL (0.1-0.6); Absolute Neutrophils 3.2 10^3/uL (1.4-6.5); Hematocrit 28.6 % (39.0-52.0); Hemoglobin 9.1 g/dL (13.0-18.0); Mean Corp Hgb Conc. 31.8 g/dL (33.0-37.0); Mean Corpuscular Hgb 26.9 pg (27.0-31.0); Mean Corpuscular Volume 84.6 fL (80.0-94.0); Mean Platelet Volume 12.2 fL (7.4-10.4); Nucleated Red Blood Cells % 0 % (-); Platelet Count 167 10^3/uL (130-400); Red Blood Cell Count 3.38 10^6/uL (4.70-6.10); Red Cell Dist. Width 18.2 % (11.5-14.5)
[2024-04-26 10:07] LABS: Urine Protein 60 mg/dl
[2024-04-26 10:46] LABS: ALT (SGPT) 67 U/L (0-50); AST (SGOT) 106 U/L (17-59); Albumin 3.4 g/dl (3.5-5.0); Alkaline Phosphatase 82 U/L (38-126); Blood Urea Nitrogen 13 mg/dl (9-20); Calcium 8.6 mg/dl (8.4-10.2); Carbon Dioxide 17 mmol/L (22-30); Chloride 105 mmol/L (98-107); Glucose 122 mg/dl (70-99); Potassium 4.1 mmol/L (3.5-5.1); Sodium 136 mmol/L (135-145); Total Bilirubin 0.7 mg/dl (0.2-1.3); Total Protein 5.6 g/dl (6.3-8.2); eGFR > 60.00
[2024-04-26 12:26] LABS: Protein/creatinine Ratio 0.5
== END ==
LOC: REG 07:55
PROVIDERS: ATTENDING PHYSICIAN Internal Medicine Hematology & Oncology; FAMILY PHYSICIAN Family Medicine; REFERRING PHYSICIAN Internal Medicine Cardiovascular Disease
DX: C78.7 Secondary malignant neoplasm of liver and intrahepatic bile duct (principal); C18.2 Malignant neoplasm of ascending colon; D64.9 Anemia, unspecified; D50.9 Iron deficiency anemia, unspecified; Z95.2 Presence of prosthetic heart valve; Z79.01 Long term (current) use of anticoagulants
CPT/HCPCS: 36415; 80053; 82570; 84156; 85025; 85610

== ENCOUNTER → 2024-04-27 16:08 | Outpatient (REF) | payer MEDICARE, SELFPAY ==
[2024-04-27 11:05] LABS: CEA 176 ng/ml
== END ==
LOC: OIDL 16:08
PROVIDERS: ATTENDING PHYSICIAN Internal Medicine Hematology & Oncology
DX: C78.7 Secondary malignant neoplasm of liver and intrahepatic bile duct (principal); C18.2 Malignant neoplasm of ascending colon
CPT/HCPCS: 82378

== ENCOUNTER → 2024-05-05 08:00 | Outpatient (REF) | payer MEDICARE, SELFPAY | LOC: RAD 08:00 | PROVIDERS: ATTENDING PHYSICIAN Internal Medicine Hematology & Oncology; FAMILY PHYSICIAN Family Medicine | DX: C78.7 Secondary malignant neoplasm of liver and intrahepatic bile duct (principal); C18.2 Malignant neoplasm of ascending colon; D64.9 Anemia, unspecified; D50.9 Iron deficiency anemia, unspecified | CPT/HCPCS: 71260; 74177; Q9967 ==

== ENCOUNTER → 2024-05-10 09:20 | Outpatient (REF) | payer MEDICARE, SELFPAY ==
[2024-05-10 10:07] LABS: % Basophils 0.6 % (0-2); % Eosinophils 0.3 % (0-6); % Immature Granulocytes 0.3 % (0-0.5); % Lymphocytes 13.2 % (20.5-51.1); % Monocytes 15.8 % (1.7-9.3); % Neutrophils 69.8 % (42.2-75.2); Absolute Lymphocytes 0.9 10^3/uL (1.2-3.4); Absolute Monocytes 1.1 10^3/uL (0.1-0.6); Absolute Neutrophils 4.7 10^3/uL (1.4-6.5); Hematocrit 29.2 % (39.0-52.0); Hemoglobin 9.5 g/dL (13.0-18.0); Mean Corp Hgb Conc. 32.5 g/dL (33.0-37.0); Mean Corpuscular Hgb 27.4 pg (27.0-31.0); Mean Corpuscular Volume 84.1 fL (80.0-94.0); Mean Platelet Volume 11.8 fL (7.4-10.4); Nucleated Red Blood Cells % 0 % (-); Platelet Count 183 10^3/uL (130-400); Red Blood Cell Count 3.47 10^6/uL (4.70-6.10); Red Cell Dist. Width 18.7 % (11.5-14.5); White Blood Cell Count 6.7 10^3/uL (4.8-10.8)
[2024-05-10 10:15] LABS: Protein/creatinine Ratio 0.4; Urine Protein 68 mg/dl
[2024-05-10 10:22] LABS: INR 4.64
[2024-05-10 10:52] LABS: ALT (SGPT) 35 U/L (0-50); AST (SGOT) 72 U/L (17-59); Albumin 3.5 g/dl (3.5-5.0); Alkaline Phosphatase 75 U/L (38-126); Blood Urea Nitrogen 13 mg/dl (9-20); Calcium 8.5 mg/dl (8.4-10.2); Carbon Dioxide 20 mmol/L (22-30); Chloride 104 mmol/L (98-107); Glucose 130 mg/dl (70-99); Potassium 4.3 mmol/L (3.5-5.1); Sodium 135 mmol/L (135-145); Total Bilirubin 0.7 mg/dl (0.2-1.3); Total Protein 5.9 g/dl (6.3-8.2); eGFR > 60.00
== END ==
LOC: REG 09:20
PROVIDERS: ATTENDING PHYSICIAN Internal Medicine Hematology & Oncology; FAMILY PHYSICIAN Internal Medicine Cardiovascular Disease
DX: Z95.2 Presence of prosthetic heart valve (principal); Z79.01 Long term (current) use of anticoagulants
CPT/HCPCS: 36415; 80053; 82570; 84156; 85025; 85610

== ENCOUNTER → 2024-05-17 13:17 | Outpatient (REF) | payer MEDICARE, SELFPAY ==
[2024-05-17 14:30] LABS: % Basophils 0.5 % (0-2); % Eosinophils 0.2 % (0-6); % Immature Granulocytes 0.3 % (0-0.5); % Lymphocytes 13.5 % (20.5-51.1); % Monocytes 14.6 % (1.7-9.3); % Neutrophils 70.9 % (42.2-75.2); Absolute Lymphocytes 0.8 10^3/uL (1.2-3.4); Absolute Monocytes 0.8 10^3/uL (0.1-0.6); Absolute Neutrophils 4.1 10^3/uL (1.4-6.5); Hemoglobin 8.4 g/dL (13.0-18.0); Mean Corp Hgb Conc. 31.1 g/dL (33.0-37.0); Mean Corpuscular Hgb 25.8 pg (27.0-31.0); Mean Corpuscular Volume 82.8 fL (80.0-94.0); Mean Platelet Volume 12.7 fL (7.4-10.4); Nucleated Red Blood Cells % 0 % (-); Platelet Count 159 10^3/uL (130-400); Red Blood Cell Count 3.26 10^6/uL (4.70-6.10); Red Cell Dist. Width 18.9 % (11.5-14.5); White Blood Cell Count 5.8 10^3/uL (4.8-10.8)
[2024-05-17 14:54] LABS: ALT (SGPT) 29 U/L (0-50); AST (SGOT) 60 U/L (17-59); Albumin 3.3 g/dl (3.5-5.0); Alkaline Phosphatase 76 U/L (38-126); Blood Urea Nitrogen 15 mg/dl (9-20); Calcium 8.7 mg/dl (8.4-10.2); Carbon Dioxide 22 mmol/L (22-30); Chloride 104 mmol/L (98-107); Glucose 181 mg/dl (70-99); PT 62.5 Sec (11.4-14.6); Potassium 4.4 mmol/L (3.5-5.1); Sodium 137 mmol/L (135-145); Total Bilirubin 0.5 mg/dl (0.2-1.3); Total Protein 5.7 g/dl (6.3-8.2); eGFR > 60.00
[2024-05-17 15:01] LABS: INR 7.23
[2024-05-17 15:16] LABS: Protein/creatinine Ratio 0.4; Urine Protein 54 mg/dl
== END ==
LOC: REG 13:17
PROVIDERS: ATTENDING PHYSICIAN Internal Medicine Hematology & Oncology; FAMILY PHYSICIAN Family Medicine; REFERRING PHYSICIAN Internal Medicine Cardiovascular Disease
DX: C78.7 Secondary malignant neoplasm of liver and intrahepatic bile duct (principal); C18.2 Malignant neoplasm of ascending colon; D64.9 Anemia, unspecified; D50.9 Iron deficiency anemia, unspecified; Z95.2 Presence of prosthetic heart valve; Z79.01 Long term (current) use of anticoagulants
CPT/HCPCS: 36415; 80053; 82570; 84156; 85025; 85610

== ENCOUNTER 2024-05-31 16:03 | Inpatient (IN) | payer MEDICARE, SELFPAY ==
--- NOTE | 2024-05-31 15:58 | HPS.HSE ---
Addendum entered and electronically signed by Ryan Vieyra MD 05/31/24 18:01:
Code status : DNR/DNI confirmed by LOCK[employer] JOINER
Original Note:
Family Physician
-
Family Physician: Doroteo Reddy DO
Chief Complaint
-
TF from [facility] for further evaluation of endocarditis and fungemia
History of Present Illness
HX from [facility] :
78M HX life long Amoxicillin for Enterococcus Endocarditis, PPM im[plant, HX Mechanical AoVR , chr warfarin admitted to [facility] as of 05/25/24 following found down and trauma alert.
Subsequent evaluation c/w AMS due to TME, Fungemia, sepsis with soft BP but not on pressors. Normalized WCC. Improved AJIT ( Cr 1.7 to 1.29 Know ACdz. Baseline Hgb 9.3. Hgb dropped to 7 with IVF. Tx 1 PRBC at [facility]. HX LVEF 30-35%.
Currently on IV vanco and Meropenem and Micofungin
Somewhat IMU level care at [facility] per my d/w [facility] hospitalist
significant for HTN, CHF, DM-II and metastatic colon cancer on chemotherapy
Medical History
Past Medical History
Past Medical History: Reports Other
Additional Past Medical History:
Metastatic Colon Cancer
BPH / Urinary Retention / Indwelling Holden
Chronic HFrEF
Paroxysmal Atrial Fibrillation
Aortic Stenosis s/p Mechanical AVR
E faecalis Endocarditis
Hypertension
DM-II
Hypothyroidism
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
Chronic Hyponatremia
Nephrolithiasis / Staghorn Calculus
Past Surgical History: Reports Other
Additional Past Surgical History:
Mechanical AVR (2008)
PPM Placement
R ACW Port
Social History
Tobacco: Non-smoker
Alcohol: Occasional
Drug: None
Family History
Family History: Not pertinent and Other (Multiple malignancies in family)
Allergies / Home Medications
Allergies reflects when Allergies were last updated in [facility].
Home Medications with original date entered in [facility]
Allergy/Medication List:
Allergies
Allergy/AdvReac Type Severity Reaction Status Date / Time
sacubitril [From Entresto] Allergy Unknown Unknown Verified 06/05/23 19:22
valsartan [From Entresto] Allergy Unknown Unknown Verified 06/05/23 19:22
Penicillins Allergy 'KILL ME' Verified 06/05/23 19:22
-
anaphylaxis
venom-honey bee Allergy Unknown Verified 06/05/23 19:22
[bee venom (honey bee)]
Home Medications
fenofibrate nanocrystallized 145 mg tablet 145 mg PO DAILY High cholesterol 04/27/20
glipizide 5 mg tablet 5 mg PO QPM Diabetes 04/27/20
levothyroxine 137 mcg tablet 137 mcg PO DAILY Thyroid 04/27/20
metformin 1,000 mg tablet 1,000 mg PO BID@0800,1700 Diabetes 04/27/20
rosuvastatin 40 mg tablet (Crestor) 40 mg PO HS High Cholesterol 04/27/20
amoxicillin 500 mg tablet 500 mg PO TID Infection 08/09/22
ezetimibe 10 mg tablet (Zetia) 10 mg PO DAILY High Cholesterol 08/09/22
tamsulosin 0.4 mg capsule (Flomax) 0.4 mg PO DAILY Urinary Issue 04/11/23
lidocaine-prilocaine 2.5 %-2.5 % topical cream 1 applic topical DAILY PRN prior to port access 05/06/23
losartan 25 mg tablet 25 mg PO DAILY #30 tabs 05/09/23
metoprolol succinate 25 mg tablet,extended release 24 hr 25 mg PO DAILY #30 tabs 05/09/23
spironolactone 25 mg tablet 12.5 mg PO DAILY #30 tabs 05/09/23
warfarin 1 mg tablet (Jantoven) 0.5 mg PO QPM 06/05/23
warfarin 5 mg tablet 5 mg PO QPM 06/05/23
Review of Systems
-
Constitutional: Reports No Symptoms
EENT: Reports No Symptoms
Respiratory: Reports No Symptoms
Cardiac: Reports No Symptoms
Abdomen/GI: Reports No Symptoms
: Reports No Symptoms
Musculoskeletal: Reports No Symptoms
Skin: Reports No Symptoms
Neurological: Reports No Symptoms
Endocrine: Reports No Symptoms
Hematologic/Lymphatic: Reports No Symptoms
Psych: Reports No Symptoms
Physical Exam
Vital Signs
Vital Signs
Temp Pulse Resp BP Pulse Ox
99.1 F 77 16 96/57 98
06/05/23 21:36 06/05/23 21:00 06/05/23 21:00 06/05/23 21:00 06/05/23 19:23
Physical Exam
General: No Apparent Distress, Comfortable and Other (77y M in no acute distress. Mild pallor.)
HEENT: Moist mucous membranes and PERRLA
Respiratory: Clear; No Wheezes, Rales or Rhonchi
Cardiac: S1/S2 (Mechanical S2) and Regular Rhythm; No Murmur
GI: Soft, Non Tender, Non Distended and Normal Bowel Sounds
Genito-urinary: Other (Holden in place draining binta urine into leg bag.)
Musculoskeletal: No Clubbing, No Cyanosis and No Edema
Skin: Other (PORT on Rt chest . Non tender )
Neuro: AO x 3
Psych: Calm and Intact Judgment/Insight
Data Reviewed
-
Old Records: Reviewed
Impression/Plan
-
ASSESSMENT & PLAN
Pending Rx reconciliation
78M HX life long Amoxicillin for Enterococcus Endocarditis, PPM implant, HX Mechanical AoVR , chr warfarin admitted to [facility] as of 05/25/24 following found down and trauma alert. Subsequent evaluation c/w AMS due to TME, Fungemia, sepsis with soft BP
but not on pressors. Normalized WCC. Improved AJIT ( Cr 1.7 to 1.29 Know ACdz. Baseline Hgb 9.3. Hgb dropped to 7 with IVF. Tx 1 PRBC at [facility]. HX LVEF 30-35%. Currently on IV vanco and Meropenem. Somewhat IMU level care at [facility] per my d/w [facility]
hospitalist
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
PS Fungemia POA - on Micafungin
HX life long Amoxicillin for Enterococcus Endocarditis, PPM implant, HX Mechanical AoVR
- concern for Endocarditis
- on Micafungin at [facility]
- on IV vancomycin and Meropenem upon admission
- ID consult
- [facility] card consult for СЕРГЕЙ
HX Metastatic Colon Cancer
�- Hold chemotherapy acutely given active infection.
Mechanical AVR on chr warfarin
HX E faecalis Endocarditis
- currently holding chronic suppression with amoxicillin.
- Daily INR (goal INR 2-3), and adjusting Coumadin accordingly�
Chronic HFrEF- Stable.��
- c/w STANDARD MACHINE STITCHER Toprol and Losartan, resumed Aldactone�
Anemia of Chronic Disease
�- Likely due to malignancy + chemo.
�- Follow admission labs
Benign Hypertension
�- Stable.� Continue home Meds with holding parameters.
DM-II
�- Stable.� Hold metformin acutely.
�- SSI coverage.�
�- A1C was 7.1% in April.
DVT Prophylaxis:� On Coumadin
Code Status:� Full code
IMU
[2024-05-31 16:07] VITALS: BP 122/66
[2024-05-31 16:18] VITALS: BMI 26.4
--- NOTE | 2024-05-31 16:44 | VATNOTE ---
right arm cephalic 20 Intima from [facility] removed due to leaking. Port accessed per protocol.
--- NOTE | 2024-05-31 16:59 | VATNOTE ---
1 set blood cultures obtained via port as per ID order
[2024-05-31 17:07] LABS: ALT (SGPT) 47 U/L (0-50); AST (SGOT) 95 U/L (17-59); Albumin 2.6 g/dl (3.5-5.0); Alkaline Phosphatase 96 U/L (38-126); Blood Urea Nitrogen 21 mg/dl (9-20); Calcium 7.8 mg/dl (8.4-10.2); Carbon Dioxide 20 mmol/L (22-30); Chloride 110 mmol/L (98-107); Estimated Creatinine Clearance 59 ml/min; Glucose 226 mg/dl (70-99); INR 2.55; PT 27.4 Sec (11.4-14.6); Potassium 3.7 mmol/L (3.5-5.1); Sodium 139 mmol/L (135-145); Total Bilirubin 0.7 mg/dl (0.2-1.3); Total Protein 4.9 g/dl (6.3-8.2); eGFR > 60.00
[2024-05-31 17:32] LABS: Hematocrit 26.8 % (39.0-52.0); Hemoglobin 8.6 g/dL (13.0-18.0); Mean Corp Hgb Conc. 32.1 g/dL (33.0-37.0); Mean Corpuscular Hgb 25.6 pg (27.0-31.0); Mean Corpuscular Volume 79.8 fL (80.0-94.0); Red Blood Cell Count 3.36 10^6/uL (4.70-6.10); Red Cell Dist. Width 19.7 % (11.5-14.5); White Blood Cell Count 8.1 10^3/uL (4.8-10.8)
[2024-05-31 18:00] VITALS: BP 110/76
--- NOTE | 2024-05-31 18:12 | PTCARENOTE ---
Patient received via EMS as a direct admit from [facility]. Pt AAOx3 slightly drowsy. Pt V-paced on the monitor. Dr. Vieyra bedside to place orders. VAT accessed pt R subq port. Labs drawn and sent. Vitals and assessment are in see worklist.
Pt oriented to the unit. Pt to be NPO at midnight see orders. is present at the bedside. Updated on plan of care, able to make needs known, call cintron is within reach.
[2024-05-31 18:16] LABS: Glucose - Point of Care 202 mg/dl (70-99)
[2024-05-31 18:33] LABS: Platelet Count 79 10^3/uL (130-400)
[2024-05-31] MEDS: ZETIA 10 MG PO (18:35)
[2024-05-31] MEDS: TOPROL XL 25 MG PO (18:35)
[2024-05-31] MEDS: NOVOLOG FLEXPEN-LOW RESISTANCE 2 UNITS SC (18:39)
[2024-05-31 20:00] VITALS: BP 113/64
[2024-05-31 22:00] VITALS: BP 111/61
[2024-05-31] MEDS: CRESTOR 40 MG PO (22:25)
[2024-05-31] MEDS: SEROQUEL 25 MG PO (22:25)
[2024-05-31] MEDS: NSS 500 IV (22:25)
[2024-05-31 23:39] LABS: Glucose - Point of Care 192 mg/dl (70-99)
[2024-06-01] VITALS (9 sets, daily range): BP systolic 106–128; BP diastolic 55–70; BMI 26.4; BMI 26.3
--- NOTE | 2024-06-01 02:57 | PTCARENOTE ---
Pt received from previous shift in bed. AAOx3, [place], forgetful to details. Full physical assessment documented (refer to worklist). STREETCAR STARTER covering house contacted about PRN heparin flush to maintain SubQ port vs IVF KVO. Electronic orders received
(refer to MAR). OOB w/assist x1 and RW -->BR, tolerated activity. R SubQ port w/NSS @ 10 mL/hr. Call cintron within reach, bed alarm active for safety. Plan of care ongoing.
[2024-06-01 05:12] LABS: Hematocrit 28.7 % (39.0-52.0); Hemoglobin 9.1 g/dL (13.0-18.0); Mean Corp Hgb Conc. 31.8 g/dL (33.0-37.0); Mean Corpuscular Hgb 25.4 pg (27.0-31.0); Mean Corpuscular Volume 79.9 fL (80.0-94.0); Platelet Count 163 10^3/uL (130-400); Red Blood Cell Count 3.58 10^6/uL (4.70-6.10); Red Cell Dist. Width 19.9 % (11.5-14.5); White Blood Cell Count 10.8 10^3/uL (4.8-10.8)
[2024-06-01 05:14] LABS: INR 2.33; PT 25.5 Sec (11.4-14.6)
[2024-06-01 05:34] LABS: ALT (SGPT) 43 U/L (0-50); AST (SGOT) 81 U/L (17-59); Albumin 2.7 g/dl (3.5-5.0); Alkaline Phosphatase 104 U/L (38-126); Blood Urea Nitrogen 21 mg/dl (9-20); Calcium 8.1 mg/dl (8.4-10.2); Carbon Dioxide 20 mmol/L (22-30); Chloride 111 mmol/L (98-107); Estimated Creatinine Clearance 54 ml/min; Glucose 161 mg/dl (70-99); Potassium 4.1 mmol/L (3.5-5.1); Sodium 140 mmol/L (135-145); Total Bilirubin 0.8 mg/dl (0.2-1.3); Total Protein 5.1 g/dl (6.3-8.2); eGFR > 60.00
[2024-06-01] MEDS: FLUSH (NSS) 1 FLUSH IV (05:40)
[2024-06-01] MEDS: MYCAMINE 105 MG IV (05:40)
[2024-06-01 06:09] LABS: Glucose - Point of Care 147 mg/dl (70-99)
[2024-06-01] MEDS: NOVOLOG FLEXPEN-LOW RESISTANCE SC (06:10)
[2024-06-01] MEDS: SYNTHROID 137 MCG PO (06:14)
[2024-06-01 06:39] LABS: Urine Albumin 3+ (Neg - Trace); Urine Bilirubin Negative (Negative); Urine Character Very Cloudy (Clear); Urine Color Red; Urine Glucose 1+ (Negative); Urine Ketone Trace (Negative); Urine Leukocyte 2+ (Negative); Urine Nitrite Negative (Negative); Urine Occult Blood 3+ (Negative); Urine Specific Gravity 1.015 (<1.030); Urine Urobilinogen 1+ (Neg - 1+); Urine pH 6.5 (5.0-9.0)
[2024-06-01 07:13] LABS: Urine Bacteria Few (Negative); Urine Red Blood Cell 60-70 /HPF (0-2)
[2024-06-01 08:18] LABS: Glycohemoglobin (HgbA1c) 6.9 % (4.0-5.6)
[2024-06-01] MEDS: TRICOR 145 MG PO (08:25)
[2024-06-01] MEDS: ALDACTONE 12.5 MG PO (08:25)
[2024-06-01] MEDS: COZAAR 25 MG PO (08:25)
[2024-06-01] MEDS: FLOMAX 0.4 MG PO (08:25)
[2024-06-01] MEDS: PROSCAR 5 MG PO (08:26)
[2024-06-01] MEDS: THERAGRAN 1 TABLET PO (08:26)
--- NOTE | 2024-06-01 09:28 | CON.CAR ---
Addendum entered and electronically signed by Lico Lewis MD 06/01/24 11:21:
I saw and examined the patient.
The ECONOMICS CONSULTANT or PA's note was reviewed and I agree with the note.
Comment: General: Well developed, well nourished in NAD.
Neck: Supple, no JVD, HJR, carotids +2 B/L, no bruits bilaterally.
Heart: Non displaced PMI, RRR, 2/6 basal systolic murmur, No S3, S4, no rubs.
Lungs: Clear to auscultation bilaterally, no wheeze, rhonchi, rubs bilaterally,
normal expiratory phase.
Abdomen: Normal bowel sounds, soft, non-tender, non-distended.
Extremities: No clubbing, cyanosis or edema bilaterally.
Neuro: Grossly nonfocal, awake, alert and oriented x3.
Ed has a history of metastatic colon cancer with chronic [place] [employer] AVR prosthetic valve endocarditis treated with long-term amoxicillin, cardiomyopathy ejection fraction of 30-35% status post pacer, A-fib, chronic Coumadin, right occipital CVA,
diabetes. He was admitted to [place] after fall with fevers and chills. His cultures grew fungus and was started on micafungin. He was transferred to [place] to be closer to his doctors. Present time he denies any complaints.
There is no utility in doing a СЕРГЕЙ as patient and do not want to have surgery. He would also be a very high risk redo sternotomy with metastatic colon cancer which has been progressive. I discussed with patient's in detail by phone and
also contacted primary service as well as infectious disease and they are all in agreement with current plan for antibiotics. Otherwise stable cardiology viewpoint. Will sign off, call with questions.
Original Note:
Consultation
Consultation Request
Date/Time Consultation Requested: 06/01/24
Date/Time Consultation Performed: 06/01/24
Requesting Provider: Dr. Hoyt
Performing Provider: Dr. Lewis
Reason for Consultation: Fungemia with h/o endocarditis
Medical History
-
History of Present Illness:
Patient was transferred from [facility] to yesterday for possible СЕРГЕЙ and fungemia, cardiology is now consulted for h/o chronic AVR endocarditis. Patient was admitted to [facility] for a fall 05/25/24. He had fevers and chills and blood cultures grew fungus
and he was started on Micafungin. Patient has a h/o chronic prosthetic aortic valve endocarditis, enterococcus faecalis, treated with long-term amoxicillin since 2013. Due to a h/o anaphylactic penicillin allergy patient completed desensitization
therapy years ago and tolerating chronic amoxicillin, but it appears that amoxicillin was stopped during admission at [facility] and he was given vancomycin and meropenem instead. Patient denies chest pain or SOB. He knows he is at , but does not recall
events from earlier this morning. He has LE edema, but denies orthopnea.
PMH:
Chronic prosthetic aortic valve endocarditis, enterococcus faecalis, treated with long-term amoxicillin since 2013
treated with vancomycin and meropenem at [facility] prior to transfer
h/o anaphylactic penicillin allergy, completed desensitization therapy and tolerating chronic amoxicillin
s/p [employer] Patel mechanical aortic valve replacement 2008
h/o primary colon cancer with metastasis to liver, lung and spine, chemotherapy with FOLFOX starting 04/29/23
CM EF 30-35% by echo 05/07/23
Chronic HFrEF
Paroxysmal atrial fibrillation
Chronic warfarin OAC managed by [facility]
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
s/p Medtronic DC PPM
Type 2 diabetes
Minimal nonobstructive CAD by cardiac catheterization 2008
Past Medical History
Past Medical History: Other (in HPI)
Past Surgical History: Cardiac (Medtronic PPM 2012) and Orthopedic
Social History
Tobacco: Non-Smoker
Alcohol: Occasional
Drug: None
Personal:
Living: With Family
Family History
Family History: Cancer
Allergies / Home Medications
Allergy/AdvReac Type Severity Reaction Status Date / Time
sacubitril [From Entresto] Allergy Unknown Unknown Verified 06/05/23 19:22
valsartan [From Entresto] Allergy Unknown Unknown Verified 06/05/23 19:22
Penicillins Allergy 'KILL ME' Verified 06/05/23 19:22
-
anaphylaxis
venom-honey bee Allergy Unknown Verified 06/05/23 19:22
[bee venom (honey bee)]
�Medication �Instructions �Recorded �Confirmed �Type
fenofibrate nanocrystallized 145 145 mg PO DAILY High cholesterol 04/27/20 05/31/24 History
mg tablet
glipizide 5 mg tablet 5 mg PO QPM Diabetes 04/27/20 05/31/24 History
levothyroxine 137 mcg tablet 137 mcg PO DAILY Thyroid 04/27/20 05/31/24 History
metformin 1,000 mg tablet 1,000 mg PO DAILY Diabetes 04/27/20 05/31/24 History
rosuvastatin 40 mg tablet (Crestor) 40 mg PO HS High Cholesterol 04/27/20 05/31/24 History
ezetimibe 10 mg tablet (Zetia) 10 mg PO QPM High Cholesterol 08/09/22 05/31/24 History
tamsulosin 0.4 mg capsule (Flomax) 0.4 mg PO DAILY Urinary Issue 04/11/23 05/31/24 History
losartan 25 mg tablet 25 mg PO DAILY #30 tabs 05/09/23 05/31/24 Rx
spironolactone 25 mg tablet 12.5 mg (1/2 x 25 mg) PO DAILY #30 05/09/23 05/31/24 Rx
tabs
warfarin 1 mg tablet (Jantoven) 1.5 mg PO SUTUTHSA Blood Clot 06/05/23 05/31/24 History
Prevention/Tx
finasteride 5 mg tablet (Proscar) 5 mg PO DAILY Urinary Issue 06/06/23 05/31/24 History
caspofungin 50 mg intravenous 50 mg IV Q24H 05/31/24 05/31/24 History
solution
metoprolol succinate 25 mg 25 mg PO QPM Heart 05/31/24 05/31/24 History
tablet,extended release 24 hr Disease/Condition
oxycodone-acetaminophen 5 mg-325 1 tab PO Q6HPRN PRN severe pain 05/31/24 05/31/24 History
mg tablet
prochlorperazine maleate 10 mg 10 mg PO Q6HPRN PRN nausea/vomiting 05/31/24 05/31/24 History
tablet
quetiapine 25 mg tablet 25 mg PO HS Mental Health/Anxiety 05/31/24 05/31/24 History
therapeutic multivitamin 1 tab PO DAILY Supplement 05/31/24 05/31/24 History
warfarin 1 mg tablet 2 mg PO MOWEFR Blood Clot 05/31/24 05/31/24 History
Prevention/Tx
Review of Systems
-
History Source: Patient and Family ( and daughter)
All other systems: Negative unless noted
Physical Exam
Vital Signs
Temp Pulse Resp BP Pulse Ox
97.7 F 69 20 108/70 93
06/01/24 07:40 06/01/24 06:00 06/01/24 06:00 06/01/24 06:00 06/01/24 06:00
GEN: NAD. AAO to person, place and situation
HEENT: EOMI, MMM
LUNGS: CTA B/L, no wheezes or rales
CV: Reg, S1/S2, no murmur
ABD: soft, BS+, NT, ND
EXT: +1 B/L LE edema. No clubbing, cyanosis or lesions B/L
NEURO: Gross non-focal
SKIN: Warm, dry and pink. No rash
Lab Results
06/01/24 04:45
06/01/24 04:44
Impression / Plan
-
Primary Care Provider: Dr. Piña
Primary Hogshead Press Operator: Dr. Lewis
Impression:
Transfer from [facility] to for fungemia and h/o AVR endocarditis on chronic antibiotics 05/31/24
Admitted to [facility] with fall, fever and fungemia 05/25/24
Fungemia by cultures at [facility] 05/25/24
Chronic prosthetic aortic valve endocarditis, enterococcus faecalis, treated with long-term amoxicillin since 2013
treated with vancomycin and meropenem at [facility] prior to transfer
h/o anaphylactic penicillin allergy, completed desensitization therapy and tolerating chronic amoxicillin
s/p St. Patel mechanical aortic valve replacement 2008
h/o primary colon cancer with metastasis to liver, lung and spine, chemotherapy with FOLFOX starting 04/29/23
CM EF 30-35% by echo 05/07/23
Chronic HFrEF
Paroxysmal atrial fibrillation
Chronic warfarin OAC managed by [facility]
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
s/p Medtronic DC PPM
Type 2 diabetes
Minimal nonobstructive CAD by cardiac catheterization 2008
Lexiscan sestamibi 06/2017: EF 27% global hypokinesis dilated ventricle, moderate size severe fixed inferior defect
Echo 10/2017: EF 40%, global hypokinesis dilated right ventricle with preserved function, dilated atria, Mac, trace MR, mechanical AV peak/mean gradient 10/5 mmHg, trace to mild TR with normal pulmonary artery pressure
Echo 07/03/21: EF 35-40%, poor endocardial definition, no regional WMA,s tage I diastolic dysfunction, mechanical AVR peak/mean 10/6 mmHg and no aortic regurgitation
Echo 05/07/23: EF 30-35%, s/p mechanical AVR with peak/mean 11/6 mmHg, no aortic regurgitation seen
Plan:
-Patient was transferred from [facility] to yesterday for possible СЕРГЕЙ and fungemia, cardiology is now consulted for h/o chronic AVR endocarditis. Patient was admitted to [facility] for a fall 05/25/24. He had fevers and chills and blood cultures grew fungus
and he was started on Micafungin. Patient has a h/o chronic prosthetic aortic valve endocarditis, enterococcus faecalis, treated with long-term amoxicillin since 2013. Due to a h/o anaphylactic penicillin allergy patient completed desensitization
therapy years ago and tolerating chronic amoxicillin, but it appears that amoxicillin was stopped during admission at [facility] and he was given vancomycin and meropenem instead. Patient denies chest pain or SOB. He knows he is at , but does not recall
events from earlier this morning. He has LE edema, but denies orthopnea.
-Weight is down compared to office visit from 02/03/24 when he weighed 201 lbs. Increased LE edema. Check pro-BNP. Patient was not taking a loop diuretic prior to admission.
-EF was 30-35% by echo 05/07/23.
-Outpatient dose of Toprol XL 25 mg daily @1999 continued
-Outpatient dose of losartan 25 mg daily continued
-Outpatient dose of spironolactone 12.5 mg daily continued
-No Jardiance/Farxiga with h/o mycotic infections.
-ID to see patient and decide on restarting amoxicillin for lifelong suppression therapy for chronic prosthetic valve endocarditis, sounds like therapy was interrupted at [facility] and patient with a h/o anaphylactic penicillin allergy requiring
desensitization therapy years ago.
-Patient is not a candidate for redo AVR therefore will not recommend СЕРГЕЙ.
-INR goal 2-2.5. INRs drawn at lab. Patient taking warfarin 1 mg daily prior to admission.
-Check ECG
--- NOTE | 2024-06-01 10:04 | W.PN.HOSP.TC ---
Today's Communication/Plan
-
See plan
Assessment / Plan
Assessment / Plan
Impression:
78 years old male with history of prosthetic valve endocarditis on amoxicillin suppression, metastatic colon carcinoma recently on chemotherapy and radiation admitted to [facility] on 05/25 with altered mental status post fall.
Was diagnosed with toxic metabolic encephalopathy due to sepsis and fungemia (blood culture 05/25 positive for Alpa 2/2). Patient was initiated on antibiotics while off amoxicillin suppression regimen with vancomycin and later micafungin for
candidemia. Repeated blood cultures negative to date. Workup for trauma was negative. Mental status improved with hydration and antibiotics. Had transient hypotension with acute kidney injury with now creatinine back to baseline. Patient
transferred for evaluation and consideration of СЕРГЕЙ, cardiology/CT surgery evaluation with concern for prosthetic valve endocarditis with fungemia.
Sepsis with fungemia.
Concern for prosthetic valve endocarditis
Widely metastatic colon carcinoma (liver, lung, skin)
� Recently on radiation treatment. Last chemotherapy session 04/27.
Right chest Chemo-Port in place.
Other conditions:
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
Chronic heart failure reduced EF.
Echo 05/26: LVEF 30-35%. Mechanical aortic valve.
Paroxysmal atrial fibrillation
Status post PPM
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
Minimal nonobstructive CAD by catheterization 2008
History of rheumatic fever.
Essential hypertension
Type 2 diabetes NIDDM.
Hypothyroidism on replacement
Dyslipidemia
Anemia of chronic disease
History of UTI/CAUTI
BPH with history of urine retention requiring Holden catheter.
Chronic pain requiring opiates
Plan:*
Fungemia with Alpa blood cultures + 05/25/2024 2 out of 2 with repeated blood cultures negative to date
Remains on micafungin.
Rapid fungemia clearance reassuring hopefully against infected PPM, mechanical aortic valve, Chemo-Port.
Patient declined invasive workup including СЕРГЕЙ, surgical evaluation given advanced colon carcinoma as well as high risk.
ID consultation pending.
Continue micafungin.
Enterococcal endocarditis on amoxicillin suppression 500 mg 3 times daily. History of penicillin allergy requiring desensitization
Had been on vancomycin at the [facility].
Consider to restart amoxicillin suppression.
Chronic CHF reduced EF
Volume status compensated
Continue Aldactone, Cozaar monitoring renal function closely
Paroxysmal atrial fibrillation.
Continue Toprol
Mechanical aortic valve
Continue anticoagulation with warfarin. Goal INR 2.5�3.5
Mild nonobstructive CAD.
Continue beta-fadia
Continue statin
Metastatic to the liver, lungs, skin colon cancer
Rec chest chemotherapy port in place.
Recently on radiation treatment to the skin
Recently on chemotherapy infusion 04/27.
Oncology consultation
Type 2 diabetes
Hemoglobin A1c 6.9.
Diet has been advanced.
Continue basal bolus protocol.
Preadmission regimen glipizide/metformin will be reintroduced later.
BPH with history of retention and multiple UTIs
Monitor closely for
Continue Flomax
DNR
DVT prophylaxis:
Anticipated Discharge: > 48 hours
Subjective/Interval History
-
Date of Service: June 01, 2024
Objective Data
-
Labs:
Laboratory Results
06/01/24 06/01/24
04:44 04:45
WBC 10.8
Hgb 9.1 L
Hct 28.7 L
Plt Count 163 D
PT 25.5 H
INR 2.33
Sodium 140
Potassium 4.1
Chloride 111 H
Carbon Dioxide 20 L
BUN 21 H
Creatinine 1.2
Glucose 161 H
Calcium 8.1 L
Total Bilirubin 0.8
AST 81 H
ALT 43
Alkaline Phosphatase 104
Vital Signs:
Vital Signs
Temp Pulse Resp BP Pulse Ox
97.7 F 69 20 108/70 93
06/01/24 07:40 06/01/24 06:00 06/01/24 06:00 06/01/24 06:00 06/01/24 06:00
I&O
05/31/24 06/01/24 06/02/24
06:59 06:59 06:59
Intake Total 465 / 465
Balance 465 / 465
Physical Exam
-
General: Well Developed, Well Nourished, No Apparent Distress, Comfortable and Conversant; Negative Respiratory Distress
HEENT: Normocephalic, Atraumatic, Nose Appears Normal and Ears Appear Normal; Negative Oxygen
Respiratory: Clear to Auscultation and Non Labored Respirations; Negative Accessory Resp Muscle Use
Cardiac: Regular Rhythm and S1/S2
GI: Soft, Nontender, Nondistended and Normal Bowel Sounds
Genito-urinary: Holden
Skin: Warm and Dry
Neuro: Awake, Alert, Oriented and AO x 3
Psych: Calm and Intact Judgement/Insight
[2024-06-01 10:24] LABS: Glucose - Point of Care 177 mg/dl (70-99)
--- NOTE | 2024-06-01 10:55 | CON.ID ---
Consultation
-
Date/Time Consultation Requested: 05/31/24 16:15
Date/Time Consultation Performed: 06/01/24 10:55
Requesting Provider: Dr Vieyar
Performing Provider: Dr Martell
Reason for Consultation: sepsis, fungemia , eval for endocarditis
Chief Complaint / Past History
Chief Complaint
found down, transferred from [facility]
History of Present Illness
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
chemotherapy (mets to lungs, liver, bones), also a staghorn renal calculus on the L.
He was admitted to [facility] ([facility]) on 05/25/24 after being found down the the bottom of a stairwell, he reported falling down just two stairs but could not be confirmed. On arrival there family reported he had been confused and febrile
for about two days prior to arrival, CXR/CT head/CT c spine/CT CAP - metastatic disease no acute fractures, no visible signs of injury on arrial, 05/25 ua with pyuria 16-20 wbc/hpf but urine culture finalized negative, 05/25 two blood cultures 8
minutes apart with C parapsilosis, 05/27 blood cultures no growth to date, 05/30 repeat blood cultures x2 no growth to date, TTE done: technically difficult study - AV valve grossly normal, MV/TV/PV not well seen, on arrival he was initially started
on vanc and cefepime later same day cefepime switched to meropenem, amoxicillin suppression was ordered but he was unable to take oral meds due to mental status and he missed doses. When yeast resulted in the blood 05/27 repeat blood cultures x2
were done and he was started on caspofungin. The repeat blood cultures were done before patient started caspofungin. His course was complicated by AJIT and he received one dose of steroids. He was planned for transfer here for CT surgery
evaluation. Note that we was due to see hematology outpatient today with question of restarting chemotherapy.
Since arrival here he has been afebrile, bp stable, wbc initially 8.1 now 10.8, hgb 9.1, plt initially 79 now 163, cr 1.2, a1c 6.9, pair blood cultures obtained from port and periphery at approximately the same time (I coordinated with nursing), ua
6-10 wbc/hpf and urine culture in progress, qtc 502, he was started on micafungin overnight but vancomycin was not continued.
Past History
Additional Past Medical History:
Metastatic Colon Cancer
BPH / Urinary Retention / Indwelling Holden
Chronic HFrEF
Paroxysmal Atrial Fibrillation
Aortic Stenosis s/p Mechanical AVR
E faecalis Endocarditis
Hypertension
DM-II
Hypothyroidism
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
Chronic Hyponatremia
Nephrolithiasis / Staghorn Calculus
Additional Past Surgical History:
Mechanical AVR (2008)
PPM Placement
R ACW Port
Allergy History:
sacubitril [From Entresto] Allergy (Unknown, Verified 06/05/23 19:22)
Unknown
valsartan [From Entresto] Allergy (Unknown, Verified 06/05/23 19:22)
Unknown
Penicillins Allergy (Verified 06/05/23 19:22)
'KILL ME' - anaphylaxis
venom-honey bee [bee venom (honey bee)] Allergy (Verified 06/05/23 19:22)
Unknown
Medications Reviewed: Yes
Social History
Tobacco: Non-Smoker
Alcohol: Occasional
Drug: None
Family History
Family History: Not Pertinent
Review of Systems
Review of Systems
General: Fever and Chills
All systems: All other systems were reviewed and were negative
Vital Signs
Temp Pulse Resp BP Pulse Ox
97.7 F 79 26 106/64 96
06/01/24 07:40 06/01/24 10:00 06/01/24 10:00 06/01/24 08:00 06/01/24 08:30
Physical Exam
Physical Exam
Constitutional: No Acute Distress, Chronically Ill and Non-toxic
Cardiovascular: Regular Rate and S1/S2; Negative Murmur or Rub
Pulmonary: Clear and Symmetric; Negative Wheezes, Rales or Rhonchi
Gastrointestinal: Soft, Non Tender, Non Distended and Normal Bowel Sounds
Skin: Warm and Dry; Negative Rash or Jaundice
Lines: Port (no erythema, warmth or tenderness, was not accessed at [facility], accessed here and functional; PPM - no erythema, warmth, swelling or tenderness)
Lab / Diagnostic Study Results
06/01/24 04:45
06/01/24 04:44
PT 25.5 Sec (11.4-14.6) H 06/01/24 04:44
INR 2.33 06/01/24 04:44
Microbiology Results
Micro:
06/01/24 04:45 Urine Culture - Pending
Urine
05/31/24 17:17 Blood Culture - Pending
Blood/Venous
05/31/24 16:52 Blood Culture - Pending
Blood/Venous
Assessment / Plan
Candidemia without a source
Widely metastatic colon cancer
- ua at [facility] minimal pyuria - urine culture finalized negative
- blood cultures 05/25 x2 8 min apart at [facility] both with C parapasilosis
- repeat blood cultures 05/27 x2 done before starting antifungals were no growth to date as of last evening
- will request finalized report of the 05/27 blood cultures tomorrow to confirm clearance
- we obtained paired cultures from the port and periphery 05/31 here - these are on 4 days of echinocandin and less likely to be revealing
- CT a/p without evidence of biliary disease
- note widely metastatic disease 05/05/24 CT a/p of the abdomen here with thickening of the ccecum and terminal ileum - transient translocation a possibility
- no signs of infection of port or pacemaker on external physical exam - no replaced joints
- while TTE was done at [facility] only the AV valve was partially visualized - start with TTE for now; will discuss further with cardiology regarding yeast pending this report
- continue micafungin
- may consider stopping seroquel to allow for fluconazole use pending course
Chronic PV E faecalis endocarditis
Anaphylaxis to penicillin as a child
- restart vancomycin as suppression for now
- I have most of the 2014 records from [place] and have sent relevant files to be scanned into [employer], we will also need cultures from [place] and these have been requested, it may be feasible to consider other, simpler suppressive treatments
[2024-06-01] MEDS: NOVOLOG FLEXPEN-LOW RESISTANCE 1 UNITS SC (11:04)
--- NOTE | 2024-06-01 11:09 | CON.ONC ---
Impression
Impression
Alpa fungemia
chronic endocarditis of mechanical AV, on chronic amoxicillin
metastatic colorectal cancer, with mets to skin, liver, lungs, bone
Plan
Plan
anti-infective therapy per ID, known to Dr. Martell
s/p recent radiation to abd wall mets
Further systemic therapy planned, to begin FOLFIRI in next 1-2 weeks if performance status allows, timing TBD pending conversations with ID
DNR noted
Patient History
History of Present Illness
This is a 78 yo M, patient of Dr. Valladares w/ h/o metastatic colon cancer, who was transferred yesterday from [facility] with new diagnosis of alpa fungemia. He'd presented to [facility] with fever and a fall at home, along with confusion, and was found to have
alpa parapsilosis in blood cultures. He was started on caspofungin and transferred to for cardiac evaluation, in light of chronic endocarditits of mechanical aortic valve, on amoxicillin for >10 years.
Re: his mCRC, he recently finished RT to metastatic skin lesion at the abdominal wall, and is scheduled to start FOLFIRI in the next 1-2 weeks, after recent scans confirmed progression of disease (involving lungs, liver, bone, skin).
He's feeling okay this am, no focal complaints. No plans for cardiac intervention or further testing, as he's not a candidate for any valvular surgery.
Past-Medical/Surgical History
PMH/PMH - as per the HPI
Patient Medication
�Medication �Instructions �Recorded �Confirmed �Last Taken �Type
fenofibrate nanocrystallized 145 145 mg PO DAILY High cholesterol 04/27/20 05/31/24 06/05/23 History
mg tablet
glipizide 5 mg tablet 5 mg PO QPM Diabetes 04/27/20 05/31/24 06/05/23 History
levothyroxine 137 mcg tablet 137 mcg PO DAILY Thyroid 04/27/20 05/31/24 06/05/23 History
metformin 1,000 mg tablet 1,000 mg PO DAILY Diabetes 04/27/20 05/31/24 06/05/23 History
rosuvastatin 40 mg tablet (Crestor) 40 mg PO HS High Cholesterol 04/27/20 05/31/24 05/27/24 20:28 History
ezetimibe 10 mg tablet (Zetia) 10 mg PO QPM High Cholesterol 08/09/22 05/31/24 06/05/23 History
tamsulosin 0.4 mg capsule (Flomax) 0.4 mg PO DAILY Urinary Issue 04/11/23 05/31/24 06/05/23 History
losartan 25 mg tablet 25 mg PO DAILY #30 tabs 05/09/23 05/31/24 06/05/23 Rx
spironolactone 25 mg tablet 12.5 mg (1/2 x 25 mg) PO DAILY #30 05/09/23 05/31/24 06/05/23 Rx
tabs
warfarin 1 mg tablet (Jantoven) [facility]ot 06/05/23 05/31/24 06/05/23 History
Prevention/Tx
finasteride 5 mg tablet (Proscar) 5 mg PO DAILY Urinary Issue 06/06/23 05/31/24 Unknown History
caspofungin 50 mg intravenous 50 mg IV Q24H 05/31/24 05/31/24 05/31/24 05:48 History
solution
metoprolol succinate 25 mg 25 mg PO QPM Heart 05/31/24 05/31/24 Unknown History
tablet,extended release 24 hr Disease/Condition
oxycodone-acetaminophen 5 mg-325 1 tab PO Q6HPRN PRN severe pain 05/31/24 05/31/24 Unknown History
mg tablet
prochlorperazine maleate 10 mg 10 mg PO Q6HPRN PRN nausea/vomiting 05/31/24 05/31/24 Unknown History
tablet
quetiapine 25 mg tablet 25 mg PO HS Mental Health/Anxiety 05/31/24 05/31/24 05/30/24 21:16 History
therapeutic multivitamin 1 tab PO DAILY Supplement 05/31/24 05/31/24 Unknown History
warfarin 1 mg tablet 2 mg PO MOWEFR Blood Clot 05/31/24 05/31/24 Unknown History
Prevention/Tx
Active Medications
Generic Name Dose Route Start Last Admin
Trade Name Freq PRN Reason Stop Dose Admin
Acetaminophen 650 mg 05/31/24 16:20
Acetaminophen 325 Mg Tablet PO 06/28/24 16:19
Q4HPRN PRN
mild pain/PHELPS/temp> 100.4F
Bisacodyl 10 mg 05/31/24 16:10
Bisacodyl 10 Mg Rectal Suppository RECTAL 06/28/24 16:09
[id number] PRN
constipation
Dextrose 12.5 grams 05/31/24 16:23
Dextrose 50% (0.5 Grams/Ml) 50 Ml Syringe IV 06/28/24 16:22
[id number] PRN
hypoglycemia
Protocol
Ezetimibe 10 mg 05/31/24 18:00 05/31/24 18:35
Ezetimibe (Zetia) 10 Mg Tablet PO 06/28/24 17:59 10 mg
QPM RIZWANA Administration
Fenofibrate 145 mg 06/01/24 08:00 06/01/24 08:25
Fenofibrate 145 Mg Tablet PO 06/29/24 07:59 145 mg
DAILY RIZWANA Administration
Finasteride 5 mg 06/01/24 08:00 06/01/24 08:26
Finasteride 5 Mg Tablet PO 06/29/24 07:59 5 mg
DAILY RIZWANA Administration
Glucagon 1 mg 05/31/24 16:23
Glucagon 1 Mg Vial IM 06/28/24 16:22
PRN PRN
hypoglycemia
Protocol
Sodium Chloride 500 mls @ 10 mls/hr 05/31/24 21:00 05/31/24 22:25
Nss IV 500 mls
.Q24H RIZWANA Administration
Micafungin Sodium 100 mg/ 105 mls @ 105 mls/hr 06/01/24 06:00 06/01/24 05:40
Dextrose IV 06/11/24 05:59 105 mls
Q24H RIZWANA Administration
Insulin Aspart 0 units 06/01/24 06:00 06/01/24 11:04
Insulin Aspart Low Resistance 300 Units/3 Ml Pen.Injctr SC 06/29/24 05:59 1 units
Q6 RIZWANA Administration
Protocol
Levothyroxine Sodium 137 mcg 06/01/24 06:00 06/01/24 06:14
Levothyroxine 137 Mcg Tablet PO 06/29/24 05:59 137 mcg
DAILY @ 0600 RIZWANA Administration
Losartan Potassium 25 mg 06/01/24 08:00 06/01/24 08:25
Losartan 25 Mg Tablet PO 06/29/24 07:59 25 mg
DAILY RIZWANA Administration
Metoprolol Succinate 25 mg 05/31/24 18:00 05/31/24 18:35
Metoprolol 25 Mg Extended Release Tablet PO 06/28/24 17:59 25 mg
QPM RIZWANA Administration
Multivitamins Therapeutic 1 tablet 06/01/24 08:00 06/01/24 08:26
Multivitamin Tablet PO 06/29/24 07:59 1 tablet
DAILY RIZWANA Administration
Ondansetron HCl 4 mg 05/31/24 16:20
Ondansetron 4 Mg/2 Ml Vial IV 06/28/24 16:19
Q6HPRN PRN
nausea and vomiting
Oxycodone/Acetaminophen 1 tablet 05/31/24 17:06
Oxycodone 5 Mg/Apap 325 Mg (Percocet) PO 06/14/24 17:05
Q6HPRN PRN
severe pain
Polyethylene Glycol 17 grams 05/31/24 16:10
Polyethylene Glycol Powder 17 Grams Packet PO 06/28/24 16:09
DAILYPRN PRN
constipation
Prochlorperazine Maleate 10 mg 05/31/24 17:06
Prochlorperazine 10 Mg Tablet PO 06/28/24 17:05
Q6HPRN PRN
nausea/vomiting
Quetiapine Fumarate 25 mg 05/31/24 22:00 05/31/24 22:25
Quetiapine 25 Mg Tablet PO 06/28/24 21:59 25 mg
HS RIZWANA Administration
Rosuvastatin Calcium 40 mg 05/31/24 22:00 05/31/24 22:25
Rosuvastatin (Crestor) 40 Mg Tablet PO 06/28/24 21:59 40 mg
HS RIZWANA Administration
Senna/Docusate Sodium 1 tablet 05/31/24 16:10
Docusate W/Senna (Ruth-Colace) Tablet PO 06/28/24 16:09
BIDPRN PRN
constipation
Sodium Chloride 0 flush 05/31/24 17:00
Sodium Chloride 0.9% (Flush) Syringe IV 06/28/24 16:59
PER PROTOCOL RIZWANA
Sodium Chloride 0 flush 06/01/24 05:50 06/01/24 05:40
Sodium Chloride 0.9% (Flush) Syringe IV 06/29/24 05:49 1 flush
Q24H RIZWANA Administration
Spironolactone 12.5 mg 06/01/24 08:00 06/01/24 08:25
Spironolactone 12.5 Mg Dose (1/2 Of 25 Mg Tablet) PO 06/29/24 07:59 12.5 mg
DAILY RIZWANA Administration
Tamsulosin HCl 0.4 mg 06/01/24 08:00 06/01/24 08:25
Tamsulosin 0.4 Mg Capsule PO 06/29/24 07:59 0.4 mg
DAILY RIZWANA Administration
Warfarin Sodium 1.5 mg 06/01/24 18:00
Warfarin 3 Mg Tablet PO 06/06/24 17:59
SuTuThSa@1800 RIZWANA
Warfarin Sodium 2 mg 06/02/24 18:00
Warfarin 2 Mg Tablet PO 06/07/24 17:59
MoWeFr@1800 RIZWANA
Review of Systems
-
History Source: Patient
All Other Systems: Not reviewed unless documented
Physical Exam
-
General: No Apparent Distress and Conversant
HEENT: Negative Jaundice
Cardiology: Normal Sinus Rhythm
Pulmonary: Clear
GI: Soft
Extremities: Edema (trace ankle)
Skin: Warm, Dry and Other (metastatic skin lesions to abd wall, s/p RT, with dressing covering most)
Psych: Calm
Labs
Lab Results
WBC 10.8 10^3/uL (4.8-10.8) 06/01/24 04:45
RBC 3.58 10^6/uL (4.70-6.10) L 06/01/24 04:45
Hgb 9.1 g/dL (13.0-18.0) L 06/01/24 04:45
Hct 28.7 % (39.0-52.0) L 06/01/24 04:45
MCV 79.9 fL (80.0-94.0) L 06/01/24 04:45
MCH 25.4 pg (27.0-31.0) L 06/01/24 04:45
MCHC 31.8 g/dL (33.0-37.0) L 06/01/24 04:45
RDW 19.9 % (11.5-14.5) H 06/01/24 04:45
Plt Count 163 10^3/uL (130-400) D 06/01/24 04:45
MPV Not Reportable 06/01/24 04:45
Creatinine 1.2 mg/dL (0.7-1.3) 06/01/24 04:44
Vital Signs
Vital Signs
Temp Pulse Resp BP Pulse Ox
97.7 F 79 26 106/64 96
06/01/24 07:40 06/01/24 10:00 06/01/24 10:00 06/01/24 08:00 06/01/24 08:30
[2024-06-01 11:35] LABS: NT-proBNP 5860 pg/ml
--- NOTE | 2024-06-01 11:41 | PHA.VAN.IN ---
Assessment
- Assessment
Renal Function: Unknown baseline (lowest SCR 2023 = 0.8, currently possibly slightly elevated from baseline)
Concomitant Antimicrobials: micafungin
Laboratory Tests
06/01/24
12:14
Random Vancomycin 9.2
Plan
- Plan
Patient received vancomycin at [facility] but unclear currently information on doses received
STAT random level ordered and resulted at 9.2
Will give 1500mg x1 today to booster levels slightly and obtain random level in AM
Pharmacokinetics Vancomycin I
- -
Patient Age: 78
Patient Sex: Male
Vancomycin Day #: 1
Indication: Endocarditis
Requesting Provider: Dr. Martell
Pertinent Antimicrobial Allergies:
penicillins - anaphylaxis
Height / Weight:
Height 5 ft 10 in
Actual Weight 83.2 kg
Pertinent Past Medical History: Metastatic colorectal cancer
- Vital Signs / Lab Results
Temp Pulse Resp BP Pulse Ox
97.7 F 79 26 106/64 96
06/01/24 07:40 06/01/24 10:00 06/01/24 10:00 06/01/24 08:00 06/01/24 08:30
Lab Results - Hematology
05/31/24 06/01/24
16:39 04:45
WBC 8.1 10.8
Lab Results - Chemistry
05/31/24 06/01/24
16:39 04:44
BUN 21 H 21 H
Creatinine 1.1 1.2
Estimated Creat Clear 59 54
Albumin 2.6 L 2.7 L
Lab Results - Urine
06/01/24
04:45
Urine Nitrite (Reflex) Negative
Leukocyte Esterase Rfl 2+ A
Urine WBC (Reflex) 6-10
Urine Bacteria (Reflex) Few A
[2024-06-01 12:50] LABS: Vancomycin Random 9.2 ug/ml
--- NOTE | 2024-06-01 12:50 | CM ---
Patient from [facility] with Hx metastatic colon cancer with recent chemo/radiation and fall with Dx Alpa Fungemia, Enterococcal endocarditis. Room air. Port in place. Receiving IV Micafungin, IV Vanco.
Met with patient and Edilma in [facility];
the patient resides with his in a 2 story house with 1 COLLETTE, and full flight to second floor bedroom.
The patient has been independent in ADLs and ambulation without using any assistive devices.
He had a fall on the day of admission to [facility] about a week ago.
He realizes he needs to start using his RW, and was observed here ambulating in halls with a RW.
Patient denies any instability on his feet however says ambulation tires him out.
Patient & says his chemo is on hold.
His only DME is the RW.
Prior [facility].
No prior SNF.
PCP - Doroteo Reddy
Pharmacy - [facility]
The patient and would like the patient to have [facility] again at d/c.
Referral to [facility].
Message to Dr Hoyt ----> patient may benefit from PT Eval.
Plan watch for any home IV Abx needs.
Plan probable home with [facility].
[2024-06-01 14:08] LABS: Glucose - Point of Care 300 mg/dl (70-99)
--- NOTE | 2024-06-01 14:16 | VNURNOTE ---
[facility] Liaison spoke with patient's spouse. Patient has had [facility] in the recent past and would like to have services again. Referral placed in [facility]. Will continue to watch DC dispo plan and will watch if home IV antibx needs.
[2024-06-01] MEDS: VANCOCIN 300 ML IV (14:47)
[2024-06-01] MEDS: VANCOCIN 300 MG IV (14:47)
[2024-06-01] MEDS: NOVOLOG FLEXPEN-LOW RESISTANCE 4 UNITS SC (14:53)
--- NOTE | 2024-06-01 16:09 | WOUNDNOTE ---
TRA RN note: Patient admitted with UTI
See H&P for complete history.
PMH: Metastatic Colon cancer-chemo and radiation. Biopsy done R lower abdomen. HTN,CHF,DM type 2, endocarditis, PPM, BPH-Holden, Afib and CVA.
Wound Location and type/assessment: Patient admitted with: R lower abdominal full thickness wounds, suspected radiation burn, biopsy was done by filter tank tender per at bedside. Small biopsy hole visible within medial larger ulcer. Wound very
friable, bled after cleaning gently. Scars from healed sores, medial to larger ulcer. reports was using Silvadene then dry dressing at home. Patient turned to side, sacrum and heels intact.
Appetite: Fair
Pressure redistribution devices in place: Accumax appropriate, ambulates with walker and turns self.
Plan: Will order Silvadene to start tomorrow and local wound care daily.
Will confirm orders with hospitalist and update nurse.
Updated care plan and will follow as needed.
Note to case management of equipment requested for discharge:None.
Recommend follow up with filter tank tender.
--- NOTE | 2024-06-01 16:48 | PTCARENOTE ---
Ambulated on unit and sat in lounge awhile today. 100% V paced / occasional AV pacing noted on tele. RSC with KVO and antibx infusing +blood return. LC/ RA 94%. Denies pain. Voiding adequate, BM unwitnessed this am. Appetite good helps
order. Report to Brittany and transferred via monitored wc to [phone]. present.
[2024-06-01 16:58] LABS: Glucose - Point of Care 357 mg/dl (70-99)
[2024-06-01] MEDS: NOVOLOG FLEXPEN-LOW RESISTANCE 5 UNITS SC (17:08)
[2024-06-01] MEDS: COUMADIN 1.5 MG PO (17:09)
[2024-06-01] MEDS: TOPROL XL 25 MG PO (17:11)
[2024-06-01] MEDS: ZETIA 10 MG PO (17:11)
[2024-06-01] MEDS: CRESTOR 40 MG PO (21:01)
[2024-06-01] MEDS: SEROQUEL 25 MG PO (21:01)
[2024-06-01] MEDS: NSS 500 IV (21:02)
[2024-06-01 21:28] LABS: Glucose - Point of Care 342 mg/dl (70-99)
[2024-06-02 03:46] VITALS: BP 124/71
[2024-06-02 05:46] LABS: PT 27.8 Sec (11.4-14.6)
[2024-06-02 05:47] LABS: % Basophils 0.1 % (0-2); % Eosinophils 1.1 % (0-6); % Immature Granulocytes 0.8 % (0-0.5); % Lymphocytes 16.5 % (20.5-51.1); % Monocytes 14.7 % (1.7-9.3); % Neutrophils 66.8 % (42.2-75.2); Absolute Eosinophils 0.1 10^3/uL (0-0.7); Absolute Immature Granulocytes 0.1 10^3/uL (0-0.05); Absolute Lymphocytes 1.3 10^3/uL (1.2-3.4); Absolute Monocytes 1.2 10^3/uL (0.1-0.6); Absolute Neutrophils 5.3 10^3/uL (1.4-6.5); Hematocrit 25.8 % (39.0-52.0); Hemoglobin 8.4 g/dL (13.0-18.0); Mean Corp Hgb Conc. 32.6 g/dL (33.0-37.0); Mean Corpuscular Hgb 26.3 pg (27.0-31.0); Mean Corpuscular Volume 80.6 fL (80.0-94.0); Nucleated Red Blood Cells % 0 % (-); Platelet Count 101 10^3/uL (130-400); Red Cell Dist. Width 19.7 % (11.5-14.5); White Blood Cell Count 7.9 10^3/uL (4.8-10.8)
[2024-06-02] MEDS: FLUSH (NSS) 1 FLUSH IV (05:47)
[2024-06-02] MEDS: SYNTHROID 137 MCG PO (05:48)
[2024-06-02] MEDS: MYCAMINE 105 MG IV (05:48)
[2024-06-02 06:00] VITALS: BMI 26.1
[2024-06-02 06:02] LABS: Blood Urea Nitrogen 21 mg/dl (9-20); Calcium 7.9 mg/dl (8.4-10.2); Carbon Dioxide 18 mmol/L (22-30); Chloride 112 mmol/L (98-107); Estimated Creatinine Clearance 50 ml/min; Glucose 212 mg/dl (70-99); Potassium 3.8 mmol/L (3.5-5.1); Sodium 141 mmol/L (135-145); eGFR 56.93
[2024-06-02 08:14] LABS: Glucose - Point of Care 227 mg/dl (70-99)
[2024-06-02] MEDS: NOVOLOG FLEXPEN-LOW RESISTANCE 2 UNITS SC ×3 (08:18→17:04)
[2024-06-02] MEDS: FLOMAX 0.4 MG PO (08:19)
[2024-06-02] MEDS: ALDACTONE 12.5 MG PO (08:19)
[2024-06-02] MEDS: THERAGRAN 1 TABLET PO (08:19)
[2024-06-02] MEDS: TRICOR 145 MG PO (08:20)
[2024-06-02] MEDS: COZAAR 25 MG PO (08:20)
[2024-06-02] MEDS: PROSCAR 5 MG PO (08:20)
[2024-06-02 10:45] LABS: Vancomycin Random 14.1 ug/ml
--- NOTE | 2024-06-02 10:53 | PHA.VAN.FU ---
Vancomycin Assessment / Plan
- Assessment
Renal Function: Stable
WBC's are: WNL
In the past 24 hrs, patient has been: Afebrile
Concomitant Antimicrobials: micafungin
- Assessment - Therapeutic Drug Monitoring
Random Level: 14.1 - drawn ~18H after previous dose of 1500mg
- Dosing Plan
Dosing by Level: Re-dose today (Vanc 1250mg)
- Monitoring Plan
Random Level: 06/03 600
- Follow Up
Pharmacy will continue to follow.
Vancomycin Follow UP
- -
Patient Age: 78
Patient Sex: Male
Vancomycin Day #: 2
Indication: Endocarditis
Requesting Provider: Dr. Martell
Pertinent Antimicrobial Allergies:
penicillins - anaphylaxis
Height / Weight:
Height 5 ft 10 in
Actual Weight 82.554 kg
Pertinent Past Medical History: Metastatic colorectal cancer
- Vital Signs / Lab Results
Temp Pulse Resp BP Pulse Ox
98.1 F 61 18 124/71 96
06/02/24 03:46 06/02/24 03:46 06/02/24 03:46 06/02/24 03:46 06/02/24 03:46
Lab Results - Hematology
05/31/24 06/01/24 06/02/24
16:39 04:45 05:01
WBC 8.1 10.8 7.9
Lab Results - Chemistry
05/31/24 06/01/24 06/02/24
16:39 04:44 05:01
BUN 21 H 21 H 21 H
Creatinine 1.1 1.2 1.3
Estimated Creat Clear 59 54 50
Albumin 2.6 L 2.7 L
Microbiology Results
05/31/24 17:17 Blood Culture - Preliminary
Blood/Venous No Growth in 24 hours- Final report to follow
05/31/24 16:52 Blood Culture - Preliminary
Blood/Venous No Growth in 24 hours- Final report to follow
Therapeutic Drug Monitoring
Random Vancomycin 14.1 ug/ml 06/02/24 08:41
[2024-06-02 12:02] VITALS: BP 133/72
[2024-06-02] MEDS: SILVADENE 1 APPLIC TOPICAL (12:30)
[2024-06-02] MEDS: VANCOCIN 275 MG IV (12:30)
[2024-06-02 12:36] LABS: Glucose - Point of Care 240 mg/dl (70-99)
--- NOTE | 2024-06-02 13:25 | CM ---
CM reviewed chart, patient resting bedside, met with patients , Edilma. Edilma reports no concerns at this time, spoke with Annabelle from [facility]. Patient remains on IV antibiotics. CM will continue to follow for all discharge planning needs.
Plan; home with [facility], watch for IV antibiotic needs.
--- NOTE | 2024-06-02 14:32 | W.PN.ID1 ---
Date of Service
Date of Service: June 02, 2024
Today's Communication
c/w micafungin and vancomycin
if unable to bring in relevant cultures then will need desensitization in the ICU tomorrow for amoxicillin - notified pharmacy
Assessment / Plan
Candidemia without a source
Widely metastatic colon cancer
- ua at [facility] minimal pyuria - urine culture finalized negative
- blood cultures 05/25 x2 8 min apart at [facility] both with C parapasilosis
- repeat blood cultures 05/27 x2 done before starting antifungals were no growth to date as of last evening
- requested finalized report to be faxed over and we have received them - to be scanned into [employer]
- we obtained paired cultures from the port and periphery 05/31 here - these are on 4 days of echinocandin - remain no growth to date
- CT a/p without evidence of biliary disease
- note widely metastatic disease 05/05/24 CT a/p of the abdomen here with thickening of the caecum and terminal ileum - transient translocation a possibility
- no signs of infection of port or pacemaker on external physical exam - no replaced joints
- TTE here no valvular lesions
- continue micafungin
- may consider stopping seroquel to allow for fluconazole use pending course
Chronic PV E faecalis endocarditis
Anaphylaxis to penicillin as a child
- c/w vancomycin as suppression for now
- I have most of the 2014 records from [place] and have sent relevant files to be scanned into [employer], unfortunately original cultures not yet located and as it has been >10 years may no longer exist, asked family if they could please bring in
whatever records they have, if we cannot locate culture then tomorrow would proceed to desensitization
Chief Complaint
-: Other (candidemia)
Subjective / Review of Systems
afebrile
bp stable
tolerating current therapies
we have not been able to locate the 2014 cultures
Vital Signs / Physical Exam
Vital Signs
Vital Signs
Temp Pulse Resp BP Pulse Ox
98.8 F 61 16 133/72 98
06/02/24 12:02 06/02/24 12:02 06/02/24 12:02 06/02/24 12:02 06/02/24 12:02
Physical Exam
Constitutional: No Acute Distress
Cardiovascular: Regular Rate and S1/S2; Negative Murmur or Rub
Pulmonary: Clear and Symmetric; Negative Wheezes or Rales
Gastrointestinal: Soft, Non Tender, Non Distended and Normal Bowel Sounds
Skin: Warm and Dry; Negative Rash or Jaundice
Objective Data
Lab Data
Lab Results
06/02/24 05:01
06/02/24 05:01
PT 27.8 Sec (11.4-14.6) H 06/02/24 05:01
INR 2.60 06/02/24 05:01
Estimated Creat Clear 50 ml/min 06/02/24 05:01
Total Bilirubin 0.8 mg/dl (0.2-1.3) 06/01/24 04:44
AST 81 U/L (17-59) H 06/01/24 04:44
ALT 43 U/L (0-50) 06/01/24 04:44
Alkaline Phosphatase 104 U/L (38-126) 06/01/24 04:44
Most recent labs reviewed.
Micro Results:
06/01/24 04:45 Urine Culture - Preliminary
Urine
05/31/24 17:17 Blood Culture - Preliminary
Blood/Venous No Growth in 24 hours- Final report to follow
05/31/24 16:52 Blood Culture - Preliminary
Blood/Venous No Growth in 24 hours- Final report to follow
[2024-06-02 15:20] VITALS: BP 134/64
--- NOTE | 2024-06-02 16:18 | W.PN.HOSP.TC ---
Today's Communication/Plan
-
Continue vancomycin and micafungin per
Plan is for transition to oral prophylactic regimen either back to amoxicillin with desensitization versus alternative regimen depends on outpatient cultures.
Duration of treatment for Alpa as per ID
Assessment / Plan
Assessment / Plan
Impression:
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
Was diagnosed with toxic metabolic encephalopathy due to sepsis and fungemia (blood culture 05/25 positive for Alpa /). Patient was initiated on antibiotics while off amoxicillin suppression regimen with vancomycin and later micafungin for
candidemia. Repeated blood cultures negative to date. Workup for trauma was negative. Mental status improved with hydration and antibiotics. Had transient hypotension with acute kidney injury with now creatinine back to baseline. Patient
transferred for evaluation and consideration of СЕРГЕЙ, cardiology/CT surgery evaluation with concern for prosthetic valve endocarditis with fungemia.
Sepsis with fungemia.
Concern for prosthetic valve endocarditis
Widely metastatic colon carcinoma (liver, lung, skin)
� Recently on radiation treatment. Last chemotherapy session 04/27.
Right chest Chemo-Port in place.
Other conditions:
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
Chronic heart failure reduced EF.
Echo 05/26: LVEF 30-35%. Mechanical aortic valve.
Paroxysmal atrial fibrillation
Status post PPM
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
Minimal nonobstructive CAD by catheterization 2008
History of rheumatic fever.
Essential hypertension
Type 2 diabetes NIDDM.
Hypothyroidism on replacement
Dyslipidemia
Anemia of chronic disease
History of UTI/CAUTI
BPH with history of urine retention requiring Holden catheter.
Chronic pain requiring opiates
Plan:*
Fungemia with Alpa parapsilosis blood cultures + 05/25/2024 2 out of 2 with repeated blood cultures negative to date
Remains on micafungin.
Rapid fungemia clearance reassuring hopefully against infected PPM, mechanical aortic valve, Chemo-Port.
Patient declined invasive workup including СЕРГЕЙ, surgical evaluation given advanced colon carcinoma as well as high risk.
Echocardiogram on 06/01 with no evidence of endovascular infection
Remains on micafungin.
ID input appreciated
Enterococcal endocarditis on amoxicillin suppression 500 mg 3 times daily. History of penicillin allergy requiring desensitization
Had been on vancomycin at the [facility].
Consider to restart amoxicillin suppression.
Chronic CHF reduced EF
Volume status compensated
Continue Aldactone, Cozaar monitoring renal function closely
Paroxysmal atrial fibrillation.
Continue Toprol
Mechanical aortic valve
Continue anticoagulation with warfarin. Goal INR 2.5�3.5
Mild nonobstructive CAD.
Continue beta-fadia
Continue statin
Metastatic to the liver, lungs, skin colon cancer
Rec chest chemotherapy port in place.
Recently on radiation treatment to the skin
Recently on chemotherapy infusion 04/27.
Oncology consultation
Type 2 diabetes
Hemoglobin A1c 6.9.
Diet has been advanced.
Continue basal bolus protocol.
Preadmission regimen glipizide/metformin will be reintroduced later.
BPH with history of retention and multiple UTIs
Monitor closely for
Continue Flomax
DNR
DVT prophylaxis:
Anticipated Discharge: > 48 hours
Subjective/Interval History
-
Date of Service: June 02, 2024
Objective Data
-
Labs:
Laboratory Results
06/02/24
05:01
WBC 7.9
Hgb 8.4 L
Hct 25.8 L
Plt Count 101 L D
PT 27.8 H
INR 2.60
Sodium 141
Potassium 3.8
Chloride 112 H
Carbon Dioxide 18 L
BUN 21 H
Creatinine 1.3
Glucose 212 H
Calcium 7.9 L
Vital Signs:
Vital Signs
Temp Pulse Resp BP Pulse Ox
98.3 F 69 16 134/64 96
06/02/24 15:20 06/02/24 15:20 06/02/24 15:20 06/02/24 15:20 06/02/24 15:20
I&O
06/01/24 06/02/24 06/03/24
06:59 06:59 06:59
Intake Total 465 / 465 685 / 685
Balance 465 / 465 685 / 685
Physical Exam
-
General: Well Developed, Well Nourished, No Apparent Distress, Comfortable and Conversant; Negative Respiratory Distress
HEENT: Normocephalic, Atraumatic, Nose Appears Normal and Ears Appear Normal; Negative Oxygen
Respiratory: Clear to Auscultation and Non Labored Respirations; Negative Accessory Resp Muscle Use
Cardiac: Regular Rhythm and S1/S2
GI: Soft, Nontender, Nondistended and Normal Bowel Sounds
Genito-urinary: Holden
Skin: Warm and Dry
Neuro: Awake, Alert, Oriented and AO x 3
Psych: Calm and Intact Judgement/Insight
[2024-06-02 16:27] LABS: Glucose - Point of Care 218 mg/dl (70-99)
[2024-06-02] MEDS: TOPROL XL 25 MG PO (16:59)
[2024-06-02] MEDS: ZETIA 10 MG PO (16:59)
[2024-06-02] MEDS: COUMADIN 2 MG PO (17:02)
--- NOTE | 2024-06-02 18:08 | PTCARENOTE ---
urine is brown tinged -hospitalist aware.Patient states this has happened before.
[2024-06-02 19:00] VITALS: BP 130/67
[2024-06-02 21:47] LABS: Glucose - Point of Care 271 mg/dl (70-99)
[2024-06-02] MEDS: SEROQUEL 25 MG PO (21:51)
[2024-06-02] MEDS: CRESTOR 40 MG PO (21:51)
[2024-06-02 23:00] VITALS: BP 115/54
[2024-06-02] MEDS: NSS 500 IV (23:45)
[2024-06-03 03:00] VITALS: BP 120/65
[2024-06-03 04:58] LABS: INR 2.74; PT 29.4 Sec (11.4-14.6)
[2024-06-03 05:07] LABS: % Basophils 0.2 % (0-2); % Eosinophils 0.2 % (0-6); % Immature Granulocytes 0.7 % (0-0.5); % Lymphocytes 8.2 % (20.5-51.1); % Monocytes 12.1 % (1.7-9.3); % Neutrophils 78.6 % (42.2-75.2); Absolute Immature Granulocytes 0.1 10^3/uL (0-0.05); Absolute Lymphocytes 0.9 10^3/uL (1.2-3.4); Absolute Monocytes 1.4 10^3/uL (0.1-0.6); Absolute Neutrophils 8.9 10^3/uL (1.4-6.5); Hematocrit 25.5 % (39.0-52.0); Hemoglobin 8.1 g/dL (13.0-18.0); Mean Corp Hgb Conc. 31.8 g/dL (33.0-37.0); Mean Corpuscular Hgb 25.2 pg (27.0-31.0); Mean Corpuscular Volume 79.4 fL (80.0-94.0); Nucleated Red Blood Cells % 0 % (-); Platelet Count 107 10^3/uL (130-400); Red Blood Cell Count 3.21 10^6/uL (4.70-6.10); White Blood Cell Count 11.3 10^3/uL (4.8-10.8)
[2024-06-03 05:14] LABS: Blood Urea Nitrogen 25 mg/dl (9-20); Calcium 7.7 mg/dl (8.4-10.2); Carbon Dioxide 17 mmol/L (22-30); Chloride 112 mmol/L (98-107); Estimated Creatinine Clearance 36 ml/min; Glucose 214 mg/dl (70-99); Potassium 3.8 mmol/L (3.5-5.1); Sodium 141 mmol/L (135-145); eGFR 38.53
[2024-06-03 05:27] LABS: Vancomycin Random 15.7 ug/ml
[2024-06-03] MEDS: FLUSH (NSS) 1 FLUSH IV (05:46)
[2024-06-03] MEDS: MYCAMINE 105 MG IV (05:47)
[2024-06-03] MEDS: SYNTHROID 137 MCG PO (05:47)
[2024-06-03 06:00] VITALS: BMI 25.9
[2024-06-03 07:30] VITALS: BP 128/59
[2024-06-03 07:34] LABS: Glucose - Point of Care 233 mg/dl (70-99)
--- NOTE | 2024-06-03 09:59 | W.PN.ID1 ---
Addendum entered and electronically signed by Rani Martell MD 06/03/24 17:26:
Extensive chart review (well over 500 pages) found the previous cultures from 2014 however additional sensitivities beyond vanc, amp, gent were not requested at that time.
Planning for transfer to the ICU tomorrow for amoxicillin desensitization; reviewed protacol with pharmacy.
Will review protacol prior to starting with [employer] in the AM and will be available for any reactions; medications will be at the bedside
reports he did have extensive hives as part of last desensitization; may see again and will treat if that occcurs. No pretreatment recommended for antibiotic desensitization.
BB to be held starting tonight, CCB will be given instead as afib with RVR would disrupt the protacol.
ARB should not be a problem.
reviewed at length with patient and spouse
continue vancomycin and micafungin for tonight
AW
Original Note:
Date of Service
Date of Service: June 03, 2024
Today's Communication
Continue micafungin
Amoxicillin desensitization in ICU
Assessment / Plan
Impression/Assessment:
Candidemia without a source
Widely metastatic colon cancer
Plan:
- UA at [facility] minimal pyuria - urine culture finalized negative
- blood cultures 05/25 x2 8 min apart at [facility] both with C parapasilosis
- repeat blood cultures 05/27 x2 done before starting antifungals were no growth
- Paired cultures from the port and periphery 05/31 at - these are on 4 days of echinocandin - remain no growth to date
- CT a/p without evidence of biliary disease
- note widely metastatic disease 05/05/24 CT a/p of the abdomen here with thickening of the caecum and terminal ileum - transient translocation a possibility
- no signs of infection of port or pacemaker on external physical exam - no replaced joints
- TTE on 06/01: EF 50-55% with no significant valvular lesions
- continue micafungin
-Chronic PV E faecalis endocarditis
-Anaphylaxis to penicillin as a child
-c/w vancomycin as suppression
-Transfer to ICU for amoxicillin desensitization as per protocol.
-WBC increased to 11.3 and Cr. increased to 1.8 (baseline is 1-1.1)
Chief Complaint
-: Other (candidemia)
Subjective / Review of Systems
Patient overall vitals are stable and tolerating medications.
Review of Systems: No Fever and No Chills
Vital Signs / Physical Exam
Vital Signs
Vital Signs
Temp Pulse Resp BP Pulse Ox
97.9 F 61 20 128/59 96
06/03/24 07:30 06/03/24 07:30 06/03/24 07:30 06/03/24 07:30 06/03/24 07:30
Physical Exam
Constitutional: No Acute Distress
Head: Normocephalic
Cardiovascular: Regular Rate and S1/S2
Pulmonary: Clear
Gastrointestinal: Soft, Non Tender and Non Distended
Skin: Warm and Dry
Neurological: Awake, Alert and Oriented
Objective Data
Lab Data
Lab Results
06/03/24 04:25
06/03/24 04:25
PT 29.4 Sec (11.4-14.6) H 06/03/24 04:24
INR 2.74 06/03/24 04:24
Estimated Creat Clear 36 ml/min 06/03/24 04:25
Total Bilirubin 0.8 mg/dl (0.2-1.3) 06/01/24 04:44
AST 81 U/L (17-59) H 06/01/24 04:44
ALT 43 U/L (0-50) 06/01/24 04:44
Alkaline Phosphatase 104 U/L (38-126) 06/01/24 04:44
Most recent labs reviewed.
Micro Results:
05/31/24 17:17 Blood Culture - Preliminary
Blood/Venous No Growth in 48 hours- Final report to follow
05/31/24 16:52 Blood Culture - Preliminary
Blood/Venous No Growth in 48 hours- Final report to follow
06/01/24 04:45 Urine Culture - Preliminary
Urine
[2024-06-03] MEDS: PROSCAR 5 MG PO (10:29)
[2024-06-03] MEDS: NOVOLOG FLEXPEN-LOW RESISTANCE 2 UNITS SC (10:29)
[2024-06-03] MEDS: COZAAR 25 MG PO (10:29)
[2024-06-03] MEDS: FLOMAX 0.4 MG PO (10:30)
[2024-06-03] MEDS: ALDACTONE 12.5 MG PO (10:30)
[2024-06-03] MEDS: THERAGRAN 1 TABLET PO (10:30)
[2024-06-03] MEDS: SILVADENE 1 APPLIC TOPICAL (10:30)
[2024-06-03] MEDS: TRICOR 145 MG PO (10:30)
[2024-06-03 11:35] VITALS: BP 99/57
--- NOTE | 2024-06-03 11:43 | W.PN.ONC ---
Today's Communication / Plan
-
Anti-infective therapy continue per infectious disease
Patient has bought medical records from [facility] and previous desensitization
s/p recent radiation to abd wall mets
Further systemic therapy planned, to begin FOLFIRI in next as timing permits relative to treatment of infectious process
Impression
Impression
Alpa fungemia
chronic endocarditis of mechanical AV, on chronic amoxicillin
metastatic colorectal cancer, with mets to skin, liver, lungs, bone
Subjective/Objective
Subjective/Objective
Appears clinically stable today. No dyspnea at rest in bed.
Vital Signs:
Vital Signs
Temp Pulse Resp BP Pulse Ox
98.3 F 61 18 99/57 97
06/03/24 11:35 06/03/24 11:35 06/03/24 11:35 06/03/24 11:35 06/03/24 11:35
General: No Apparent Distress and Conversant
HEENT: Negative Jaundice
Cardiology: Normal Sinus Rhythm
Pulmonary: Clear
GI: Soft
Extremities: Symmetrical
Skin: Warm, Dry and Other (metastatic skin lesions to abd wall, s/p RT, with dressing covering most)
Psych: Calm
Lab Results:
Laboratory Data
WBC 11.3 10^3/uL (4.8-10.8) H 06/03/24 04:25
Hgb 8.1 g/dL (13.0-18.0) L 06/03/24 04:25
Plt Count 107 10^3/uL (130-400) L 06/03/24 04:25
PT 29.4 Sec (11.4-14.6) H 06/03/24 04:24
INR 2.74 06/03/24 04:24
eGFR 38.53 06/03/24 04:25
[2024-06-03 11:45] LABS: Glucose - Point of Care 277 mg/dl (70-99)
--- NOTE | 2024-06-03 13:16 | PHA.VAN.FU ---
Vancomycin Assessment / Plan
- Assessment
Renal Function: SCR Increasing
In the past 24 hrs, patient has been: Afebrile
Concomitant Antimicrobials: micafungin
- Assessment - Therapeutic Drug Monitoring
Random Level: 15.7 - drawn ~16H after previous dose of 1250mg
- Dosing Plan
Dosing by Level: Re-dose today (Vanc 750mg)
- Monitoring Plan
Random Level: 06/04 0600
- Follow Up
Pharmacy will continue to follow.
Vancomycin Follow UP
- -
Patient Age: 78
Patient Sex: Male
Vancomycin Day #: 3
Indication: Endocarditis
Requesting Provider: Dr. Martell
Pertinent Antimicrobial Allergies:
penicillins - anaphylaxis
Height / Weight:
Height 5 ft 10 in
Actual Weight 81.76 kg
Pertinent Past Medical History: Metastatic colorectal cancer
- Vital Signs / Lab Results
Temp Pulse Resp BP Pulse Ox
98.3 F 61 18 99/57 97
06/03/24 11:35 06/03/24 11:35 06/03/24 11:35 06/03/24 11:35 06/03/24 11:35
Lab Results - Hematology
05/31/24 06/01/24 06/02/24
16:39 04:45 05:01
WBC 8.1 10.8 7.9
06/03/24
04:25
WBC 11.3 H
Lab Results - Chemistry
05/31/24 06/01/24 06/02/24
16:39 04:44 05:01
BUN 21 H 21 H 21 H
Creatinine 1.1 1.2 1.3
Estimated Creat Clear 59 54 50
Albumin 2.6 L 2.7 L
06/03/24
04:25
BUN 25 H
Creatinine 1.8 H
Estimated Creat Clear 36
Albumin
Microbiology Results
06/01/24 04:45 Urine Culture - Final
Urine Yeast
05/31/24 17:17 Blood Culture - Preliminary
Blood/Venous No Growth in 48 hours- Final report to follow
05/31/24 16:52 Blood Culture - Preliminary
Blood/Venous No Growth in 48 hours- Final report to follow
Therapeutic Drug Monitoring
Random Vancomycin 15.7 ug/ml 06/03/24 04:24
[2024-06-03] MEDS: NOVOLOG FLEXPEN-LOW RESISTANCE 3 UNITS SC ×2 (13:31→17:45)
[2024-06-03] MEDS: VANCOCIN 150 IV (13:32)
[2024-06-03 15:23] VITALS: BP 123/65
--- NOTE | 2024-06-03 16:09 | CM ---
CM reviewed chart, patient for transfer to ICU. [facility] following patient when medically stable for discharge. CM will continue to follow for all discharge planning needs.
Plan; will follow for medical progress, home with with and [facility] likely.
--- NOTE | 2024-06-03 16:31 | W.PN.HOSP.TC ---
Today's Communication/Plan
-
For amoxicillin desensitization on 06/04. To be transferred to ICU for close monitoring.
Continue vancomycin and micafungin
Continue Coumadin following INR.
Assessment / Plan
Assessment / Plan
Impression:
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
Was diagnosed with toxic metabolic encephalopathy due to sepsis and fungemia (blood culture 05/25 positive for Alpa 2/). Patient was initiated on antibiotics while off amoxicillin suppression regimen with vancomycin and later micafungin for
candidemia. Repeated blood cultures negative to date. Workup for trauma was negative. Mental status improved with hydration and antibiotics. Had transient hypotension with acute kidney injury with now creatinine back to baseline. Patient
transferred for evaluation and consideration of СЕРГЕЙ, cardiology/CT surgery evaluation with concern for prosthetic valve endocarditis with fungemia.
Sepsis with fungemia.
Concern for prosthetic valve endocarditis
Widely metastatic colon carcinoma (liver, lung, skin)
� Recently on radiation treatment. Last chemotherapy session 04/27.
Right chest Chemo-Port in place.
Other conditions:
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
Chronic heart failure reduced EF.
Echo 05/26: LVEF 30-35%. Mechanical aortic valve.
Paroxysmal atrial fibrillation
Status post PPM
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
Minimal nonobstructive CAD by catheterization 2008
History of rheumatic fever.
Essential hypertension
Type 2 diabetes NIDDM.
Hypothyroidism on replacement
Dyslipidemia
Anemia of chronic disease
History of UTI/CAUTI
BPH with history of urine retention requiring Holden catheter.
Chronic pain requiring opiates
Plan:*
Fungemia with Alpa parapsilosis blood cultures + 05/25/2024 2 out of 2 with repeated blood cultures negative to date
Remains on micafungin.
Rapid fungemia clearance reassuring hopefully against infected PPM, mechanical aortic valve, Chemo-Port.
Patient declined invasive workup including СЕРГЕЙ, surgical evaluation given advanced colon carcinoma as well as high risk.
Echocardiogram on 06/01 with no evidence of endovascular infection
Remains on micafungin.
ID input appreciated
Enterococcal endocarditis on amoxicillin suppression 500 mg 3 times daily. History of penicillin allergy requiring desensitization
Had been on vancomycin at the [facility].
Consider to restart amoxicillin suppression.
Chronic CHF reduced EF
Volume status compensated
Continue Aldactone, Cozaar monitoring renal function closely
Paroxysmal atrial fibrillation.
Continue Toprol
Mechanical aortic valve
Continue anticoagulation with warfarin. Goal INR 2.5�3.5
Mild nonobstructive CAD.
Continue beta-fadia
Continue statin
Metastatic to the liver, lungs, skin colon cancer
Rec chest chemotherapy port in place.
Recently on radiation treatment to the skin
Recently on chemotherapy infusion 04/27.
Oncology consultation
Type 2 diabetes
Hemoglobin A1c 6.9.
Diet has been advanced.
Continue basal bolus protocol.
Preadmission regimen glipizide/metformin will be reintroduced later.
BPH with history of retention and multiple UTIs
Monitor closely for
Continue Flomax
DNR
DVT prophylaxis:
Anticipated Discharge: > 48 hours
Subjective/Interval History
-
Date of Service: June 03, 2024
Objective Data
-
Labs:
Laboratory Results
06/03/24 06/03/24
04:24 04:25
WBC 11.3 H
Hgb 8.1 L
Hct 25.5 L
Plt Count 107 L
PT 29.4 H
INR 2.74
Sodium 141
Potassium 3.8
Chloride 112 H
Carbon Dioxide 17 L
BUN 25 H
Creatinine 1.8 H
Glucose 214 H
Calcium 7.7 L
Vital Signs:
Vital Signs
Temp Pulse Resp BP Pulse Ox
98.1 F 84 18 123/65 96
06/03/24 15:23 06/03/24 15:23 06/03/24 15:23 06/03/24 15:23 06/03/24 15:23
I&O
06/02/24 06/03/24 06/04/24
06:59 06:59 06:59
Intake Total 685 / 685 480 / 480
Output Total 100 / 100
Balance 685 / 685 380 / 380
Physical Exam
-
General: Well Developed, Well Nourished, No Apparent Distress, Comfortable and Conversant; Negative Respiratory Distress
HEENT: Normocephalic, Atraumatic, Nose Appears Normal and Ears Appear Normal; Negative Oxygen
Respiratory: Clear to Auscultation and Non Labored Respirations; Negative Accessory Resp Muscle Use
Cardiac: Regular Rhythm and S1/S2
GI: Soft, Nontender, Nondistended and Normal Bowel Sounds
Genito-urinary: Holden
Skin: Warm and Dry
Neuro: Awake, Alert, Oriented and AO x 3
Psych: Calm and Intact Judgement/Insight
[2024-06-03 16:58] LABS: Glucose - Point of Care 278 mg/dl (70-99)
[2024-06-03] MEDS: ZETIA 10 MG PO (17:46)
[2024-06-03] MEDS: COUMADIN 1.5 MG PO (17:46)
[2024-06-03 19:46] VITALS: BP 137/71
[2024-06-03] MEDS: CARDIZEM 30 MG PO ×2 (20:13→23:24)
[2024-06-03 21:40] LABS: Glucose - Point of Care 243 mg/dl (70-99)
[2024-06-03 23:19] VITALS: BP 116/57
[2024-06-03] MEDS: SEROQUEL 25 MG PO (23:24)
[2024-06-03] MEDS: CRESTOR 40 MG PO (23:24)
[2024-06-04] VITALS (52 sets, daily range): BP systolic 97–121; BP diastolic 54–68; BMI 25.9
[2024-06-04] MEDS: FLUSH (NSS) 1 FLUSH IV (05:18)
[2024-06-04] MEDS: SYNTHROID 137 MCG PO (05:18)
[2024-06-04] MEDS: MYCAMINE 105 MG IV (05:19)
[2024-06-04 05:51] LABS: INR 2.95; PT 31.2 Sec (11.4-14.6)
[2024-06-04 06:04] LABS: Blood Urea Nitrogen 28 mg/dl (9-20); Calcium 7.5 mg/dl (8.4-10.2); Carbon Dioxide 20 mmol/L (22-30); Chloride 112 mmol/L (98-107); Estimated Creatinine Clearance 38 ml/min; Glucose 180 mg/dl (70-99); Potassium 3.7 mmol/L (3.5-5.1); Sodium 140 mmol/L (135-145); eGFR 41.26
[2024-06-04 06:07] LABS: Vancomycin Random 14.8 ug/ml
[2024-06-04 08:08] LABS: Glucose - Point of Care 224 mg/dl (70-99)
--- NOTE | 2024-06-04 08:11 | W.PN.ID1 ---
Addendum entered and electronically signed by Rani Martell MD 06/04/24 15:45:
I saw and evaluated the patient. I reviewed the resident�s note and agree with findings and plan as documented in the resident�s note with the following additions/corrections:
SOAP:
No events overnight
No complaints beyond fatigue which is ongoing
O:
afebrile, HR paced - NSR, BP stable
Physical Exam
Constitutional: No Acute Distress
Cardiovascular: Regular Rate and S1/S2; Negative Murmur or Rub
Pulmonary: Clear and Symmetric; Negative Wheezes or Rales
Gastrointestinal: Soft, Non Tender, Non Distended and Normal Bowel Sounds
Skin: Warm and Dry; Negative Rash or Jaundice
DLOA: pacemaker no erythema, warmth, tenderness or drainage
Labs reviewed:
cr 1.7 from baseline of 1.3
urine culture 30 K yeast
A&P
Chronic PV E faecalis endocarditis
Anaphylaxis to penicillin as a child
- as old records did not provide additional possible antibiotics on the culture results, we will re-desensitize the patient to amoxicillin
- protocol in place for oral desensitization
- patient transferred to the ICU, will have 1:1 RN supervision and I will be available to manage any reactions, medications will be in the room additionally crash cart in the wolf
- beta fadia was held, using calcium channel fadia for now - cardiology in agreement, not on EVONNE-I
- reviewed plans in detail with RN, pharmacy, and critical care attending prior to starting
- patient aware that once restart on amoxicillin he will need to continue it without missed doses and if there is a missed dose then
Candidemia without a source
Widely metastatic colon cancer
- ua at [facility] minimal pyuria - urine culture finalized negative; interestingly urine culture here 06/02 now with 30K yeast - will ask lab for ID
- no need for directed treatment at this time
- blood cultures 05/25 x2 8 min apart at [facility] both with C parapasilosis
- repeat blood cultures 05/27 x2 finalized negative
- we obtained paired cultures from the port and periphery 05/31 here - these are on 4 days of echinocandin - remain no growth to date
- CT a/p without evidence of biliary disease
- note widely metastatic disease 05/05/24 CT a/p of the abdomen here with thickening of the caecum and terminal ileum - transient translocation a possibility
- no signs of infection of port or pacemaker on external physical exam - no replaced joints
- TTE here no valvular lesions
- continue micafungin
- may consider stopping seroquel to allow for fluconazole use pending course
AW
Original Note:
Date of Service
Date of Service: June 04, 2024
Today's Communication
Desensitization with amoxicillin in ICU as per protocol
Assessment / Plan
Impression/Assessment:
Candidemia without a source
Widely metastatic colon cancer
Plan:
- UA at [facility] minimal pyuria - urine culture finalized negative
- blood cultures 05/25 x2 8 min apart at [facility] both with C parapasilosis
- repeat blood cultures 05/27 x2 done before starting antifungals were no growth
- Paired cultures from the port and periphery 05/31 at - these are on 4 days of echinocandin - remain no growth to date
- CT a/p without evidence of biliary disease
- note widely metastatic disease 05/05/24 CT a/p of the abdomen here with thickening of the caecum and terminal ileum - transient translocation a possibility
- no signs of infection of port or pacemaker on external physical exam - no replaced joints
- TTE on 06/01: EF 50-55% with no significant valvular lesions
- continue micafungin
-Chronic PV E faecalis endocarditis
-Anaphylaxis to penicillin as a child
-c/w vancomycin as suppression
- Hold beta fadia, continue CCB
-Transfer to ICU for amoxicillin desensitization as per protocol today with 1:1 RN supervision
-WBC increased to 11.3 and Cr. increased to 1.7 (baseline is 1-1.1)
Chief Complaint
-: Other (candidemia)
Subjective / Review of Systems
Patient's vitals are overall stable.
Review of Systems: No Fever, No Chills and No Chest Pain
Vital Signs / Physical Exam
Vital Signs
Vital Signs
Temp Pulse Resp BP Pulse Ox
97.8 F 76 20 121/65 97
06/04/24 03:00 06/04/24 03:00 06/04/24 03:00 06/04/24 03:00 06/04/24 03:00
Physical Exam
Constitutional: No Acute Distress
Head: Normocephalic
Cardiovascular: Regular Rate and S1/S2
Pulmonary: Clear
Gastrointestinal: Soft and Non Distended
Skin: Warm and Dry
Neurological: Awake, Alert and Oriented
Objective Data
Lab Data
Lab Results
06/03/24 04:25
06/04/24 05:13
PT 31.2 Sec (11.4-14.6) H 06/04/24 05:13
INR 2.95 06/04/24 05:13
Estimated Creat Clear 38 ml/min 06/04/24 05:13
Total Bilirubin 0.8 mg/dl (0.2-1.3) 06/01/24 04:44
AST 81 U/L (17-59) H 06/01/24 04:44
ALT 43 U/L (0-50) 06/01/24 04:44
Alkaline Phosphatase 104 U/L (38-126) 06/01/24 04:44
Most recent labs reviewed.
Micro Results:
05/31/24 17:17 Blood Culture - Preliminary
Blood/Venous No Growth in 72 hours- Final report to follow
05/31/24 16:52 Blood Culture - Preliminary
Blood/Venous No Growth in 72 hours- Final report to follow
06/01/24 04:45 Urine Culture - Final
Urine Yeast
[2024-06-04] MEDS: NOVOLOG FLEXPEN-LOW RESISTANCE 2 UNITS SC (08:22)
[2024-06-04] MEDS: ALDACTONE 12.5 MG PO (08:23)
[2024-06-04] MEDS: THERAGRAN 1 TABLET PO (08:24)
[2024-06-04] MEDS: TRICOR 145 MG PO (08:24)
[2024-06-04] MEDS: PROSCAR 5 MG PO (08:24)
[2024-06-04] MEDS: FLOMAX 0.4 MG PO (08:24)
[2024-06-04] MEDS: CARDIZEM 30 MG PO ×2 (08:25→13:02)
[2024-06-04] MEDS: SILVADENE 1 APPLIC TOPICAL (08:25)
[2024-06-04] MEDS: COZAAR 25 MG PO (08:25)
--- NOTE | 2024-06-04 10:03 | CON.INTV ---
Consultation
Consultation Request
Date/Time Consultation Requested: 06/04
Date/Time Consultation Performed: 06/04
Reason for Consultation: Critical care
Medical History
-
History of Present Illness:
History primarily obtained from the at the bedside, some history from the patient and history from inpatient and outpatient records. Patient is a 78-year-old male with complex medical history including metastatic colon cancer diagnosed March
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 During his hospital stay, his amoxicillin was held. He was found to have blood cultures positive for Alpa 09/05. Patient was
subsequently transferred to [facility] for evaluation of endocarditis on 05/31/2024. Patient now being transferred to ICU for amoxicillin desensitization due to requirement for chronic antibiotic suppression.
Presently, patient's primary complaint is lower abdominal discomfort. Otherwise he denies shortness of breath, nausea, chest pain
.
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 History of cardiomyopathy, EF 30%,
paroxysmal atrial fibrillation, history of pacemaker, history of cardioembolic stroke August and January 2014, distant history of rheumatic fever, hypertension, type 2 diabetes, hypothyroidism, hyperlipidemia, anemia, history of nephrolithiasis, BPH
with urinary retention in the past, chronic pain syndrome
Past Medical History
Past Medical History: None (See above)
Past Surgical History: None (See above)
Social History
Tobacco: Non-smoker
Alcohol: Occasional
Drug: None
Living: With Family
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
Family History
Family History: Other (1 sister healthy. He has 2 biological children healthy.)
Allergies / Home Medications
Allergies
Allergy/AdvReac Type Severity Reaction Status Date / Time
sacubitril [From Entresto] Allergy Unknown Unknown Verified 06/05/23 19:22
valsartan [From Entresto] Allergy Unknown Unknown Verified 06/05/23 19:22
Penicillins Allergy 'KILL ME' Verified 06/05/23 19:22
-
anaphylaxis
venom-honey bee Allergy Unknown Verified 06/05/23 19:22
[bee venom (honey bee)]
Home Medications
�Medication �Instructions �Recorded �Confirmed �Last Taken �Type
fenofibrate nanocrystallized 145 145 mg PO DAILY High cholesterol 04/27/20 05/31/24 06/05/23 History
mg tablet
glipizide 5 mg tablet 5 mg PO QPM Diabetes 04/27/20 05/31/24 06/05/23 History
levothyroxine 137 mcg tablet 137 mcg PO DAILY Thyroid 04/27/20 05/31/24 06/05/23 History
metformin 1,000 mg tablet 1,000 mg PO DAILY Diabetes 04/27/20 05/31/24 06/05/23 History
rosuvastatin 40 mg tablet (Crestor) 40 mg PO HS High Cholesterol 04/27/20 05/31/24 05/27/24 20:28 History
ezetimibe 10 mg tablet (Zetia) 10 mg PO QPM High Cholesterol 08/09/22 05/31/24 06/05/23 History
tamsulosin 0.4 mg capsule (Flomax) 0.4 mg PO DAILY Urinary Issue 04/11/23 05/31/24 06/05/23 History
losartan 25 mg tablet 25 mg PO DAILY #30 tabs 05/09/23 05/31/24 06/05/23 Rx
spironolactone 25 mg tablet 12.5 mg (1/2 x 25 mg) PO DAILY #30 05/09/23 05/31/24 06/05/23 Rx
tabs
warfarin 1 mg tablet (Jantoven) 1.5 mg PO SUTUTHSA Blood Clot 06/05/23 05/31/24 06/05/23 History
Prevention/Tx
finasteride 5 mg tablet (Proscar) 5 mg PO DAILY Urinary Issue 06/06/23 05/31/24 Unknown History
caspofungin 50 mg intravenous 50 mg IV Q24H 10/05/31/24 05/31/24 05:48 History
solution
metoprolol succinate 25 mg 25 mg PO QPM Heart 05/31/24 05/31/24 Unknown History
tablet,extended release 24 hr Disease/Condition
oxycodone-acetaminophen 5 mg-325 1 tab PO Q6HPRN PRN severe pain 05/31/24 05/31/24 Unknown History
mg tablet
prochlorperazine maleate 10 mg 10 mg PO Q6HPRN PRN nausea/vomiting 05/31/24 05/31/24 Unknown History
tablet
quetiapine 25 mg tablet 25 mg PO HS Mental Health/Anxiety 05/31/24 05/31/24 05/30/24 21:16 History
therapeutic multivitamin 1 tab PO DAILY Supplement 05/31/24 05/31/24 Unknown History
warfarin 1 mg tablet 2 mg PO MOWEFR Blood Clot 05/31/24 05/31/24 Unknown History
Prevention/Tx
Review of Systems
-
All other systems: Negative unless noted
Vitals / Labs / Diagnostic Testing
Vital Signs
Temp Pulse Resp BP Pulse Ox
98.1 F 72 18 121/66 98
06/04/24 07:30 06/04/24 07:30 06/04/24 07:30 06/04/24 07:30 06/04/24 07:30
Lab Data
06/03/24 04:25
06/04/24 05:13
Laboratory Results
06/04/24
05:13
PT 31.2 H
INR 2.95
Microbiology
05/31/24 17:17 Blood/Venous Blood Culture - Preliminary
No Growth in 72 hours- Final report to follow
05/31/24 16:52 Blood/Venous Blood Culture - Preliminary
No Growth in 72 hours- Final report to follow
06/01/24 04:45 Urine Urine Culture - Final
Yeast
Diagnostic Testing:
Physical Exam
-
HEENT: Normocephalic, Anicteric and Other (Anterior chest port)
Cardiovascular: S1/S2, Regular Rhythm, Murmur (n) and Other (Mechanical S2)
Respiratory: Wheeze (n), Rales (n) and Rhonchi (n)
GI: Soft, Distended and Tender (Mild lower abdominal)
Neurology: Awake, Alert and No Motor Deficits (Moves all extremities, generally weak)
Skin: Other (Lower abdominal skin rash with dressing noted, radiation changes, cancer involvement)
General: Comfortable
Assessment
-
78-year-old male with complex medical history, mechanical aortic valve with history of Enterococcus faecalis endocarditis on chronic amoxicillin suppression therapy since 2013, recent identified as having fungemia with Alpa 05/25/2024 while at
[facility]. Amoxicillin was held for 7 days. Patient is not requiring desensitization of penicillin to resume amoxicillin suppression therapy, transferred to ICU 06/04/2024
Planned penicillin desensitization
Requiring chronic amoxicillin suppression therapy
Sepsis with fungemia
Alpa bacteremia per [facility] cultures 05/25
Treated with micafungin therapy
Chronic prosthetic valve Enterococcus faecalis endocarditis
On chronic amoxicillin suppression therapy since 2013
Fevers/chills, fall 05/25/2024
Conditions present prior to admission
Metastatic colon cancer (liver, lung, skin)
Status post recent radiation treatment/chemotherapy (April and May 2024)
Lower abdominal pain, skin involvement
Port in place
Cardiomyopathy, EF 30%
Mechanical aortic valve since 2013
History of cardioembolic stroke
August 2013 (left visual defect)
January 2014 (aphasia)
Hypertension/hyperlipidemia
Type 2 diabetes
Hypothyroidism
History of nephrolithiasis
BPH, urinary retention requiring Holden catheter in the past
Chronic pain syndrome
DNR
Plan/recommendations
At this time, patient appears to be comfortable with primary complaint being lower abdominal discomfort
Reviewed hospital course and inpatient and outpatient records at length
Plan for penicillin desensitization noted
Patient being seen by infectious disease and cardiology. СЕРГЕЙ was not pursued given high risk and patient declined invasive workup as would not sales and service change leader
Moving forward
Continue with antibiotic therapy per infectious disease. Presently on micafungin and vancomycin
Awaiting penicillin desensitization, per protocol
Reviewed protocol with infectious disease and pharmacy
Protocol reviewed and interventions noted and prepared for reactions
Echocardiogram with no obvious valvular lesions
Patient was on beta-fadia therapy, this has been held.
Reviewed at length with at bedside. Initial reaction 10+ years ago was hives
Reviewed with critical care nursing
Will follow closely
TCCT 31 min
--- NOTE | 2024-06-04 10:15 | W.PN.UPDATE ---
Update Note
Progress Note Update
I saw and evaluated the patient. I reviewed the resident�s note and agree with findings and plan as documented in the resident�s note with the following additions/corrections:
SOAP:
No events overnight
No complaints beyond fatigue which is ongoing
O:
afebrile, HR paced - NSR, BP stable
Physical Exam
Constitutional: No Acute Distress
Cardiovascular: Regular Rate and S1/S2; Negative Murmur or Rub
Pulmonary: Clear and Symmetric; Negative Wheezes or Rales
Gastrointestinal: Soft, Non Tender, Non Distended and Normal Bowel Sounds
Skin: Warm and Dry; Negative Rash or Jaundice
DLOA: pacemaker no erythema, warmth, tenderness or drainage
Labs reviewed:
cr 1.7 from baseline of 1.3
urine culture 30 K yeast
A&P
Chronic PV E faecalis endocarditis
Anaphylaxis to penicillin as a child
- as old records did not provide additional possible antibiotics on the culture results, we will re-desensitize the patient to amoxicillin
- protocol in place for oral desensitization
- patient transferred to the ICU, will have 1:1 RN supervision and I will be available to manage any reactions, medications will be in the room additionally crash cart in the wolf
- beta fadia was held, using calcium channel fadia for now - cardiology in agreement, not on EVONNE-I
- reviewed plans in detail with RN, pharmacy, and critical care attending prior to starting
- patient aware that once restart on amoxicillin he will need to continue it without missed doses and if there is a missed dose then
Candidemia without a source
Widely metastatic colon cancer
- ua at [facility] minimal pyuria - urine culture finalized negative; interestingly urine culture here 06/02 now with 30K yeast - will ask lab for ID
- no need for directed treatment at this time
- blood cultures 05/25 x2 8 min apart at [facility] both with C parapasilosis
- repeat blood cultures 05/27 x2 finalized negative
- we obtained paired cultures from the port and periphery 10/28 here - these are on 4 days of echinocandin - remain no growth to date
- CT a/p without evidence of biliary disease
- note widely metastatic disease 05/05/24 CT a/p of the abdomen here with thickening of the caecum and terminal ileum - transient translocation a possibility
- no signs of infection of port or pacemaker on external physical exam - no replaced joints
- TTE here no valvular lesions
- continue micafungin
- may consider stopping seroquel to allow for fluconazole use pending course
AW
--- NOTE | 2024-06-04 10:18 | PTCARENOTE ---
Pt received to ICU bed 3370 for amoxicillin desensitization. CHG bath given. Full head to toe assessment complete. Dr Martell and Dr Nuñez notified of pts arrival and came to bedside. Pharmacy aware and sending medication. Reviewed signs and
symptoms with pt and . Reviewed PRN medications for reactions with MD and pharmacist.
[2024-06-04 10:29] LABS: APTT 73.6 Sec (23.4-35.0)
[2024-06-04 10:30] LABS: Magnesium 1.9 mg/dl (1.6-2.3)
[2024-06-04] MEDS: COMPOUND MEDICATION 1 UNIT PO ×9 (11:11→13:59)
--- NOTE | 2024-06-04 11:54 | PTCARENOTE ---
Pt has received 2 doses of Amoxicillin per desensitization protocol. No s/s reaction noted. Pt denies itching, pain, SOB at this time.
VSS. V-paced or AV paced. Lungs CTA. 97% on room air.
Continues to have poor appetite. Lunch ordered by . BS elevated. notified and will make changes to Insulin.
All other assessments unchanged from previous.
[2024-06-04 12:01] LABS: Glucose - Point of Care 282 mg/dl (70-99)
[2024-06-04] MEDS: NOVOLOG FLEXPEN-MODERATE RESISTANCE 5 UNITS SC ×2 (12:21→18:09)
--- NOTE | 2024-06-04 12:22 | CM ---
CM reviewed chart, patient transfer to ICU for amoxicillin desensitization. CM will continue to follow for all discharge planning needs.
Plan; home with [facility] and when stable.
[2024-06-04 12:56] LABS: Urine Albumin 2+ (Neg - Trace); Urine Bilirubin 1+ (Negative); Urine Character Very Cloudy (Clear); Urine Color Brown; Urine Glucose Trace (Negative); Urine Ketone Trace (Negative); Urine Leukocyte 2+ (Negative); Urine Nitrite Negative (Negative); Urine Occult Blood 4+ (Negative); Urine Urobilinogen Negative (Neg - 1+)
[2024-06-04] MEDS: NOVOLOG FLEXPEN-LOW RESISTANCE SC (13:07)
[2024-06-04] MEDS: TRIMOX/AMOXIL 25 MG PO (14:22)
[2024-06-04 14:25] LABS: Urine Red Blood Cell >100 /HPF (0-2); Urine White Cell >100 /HPF (0-5)
[2024-06-04 14:26] LABS: Urine Bacteria Many (Negative)
--- NOTE | 2024-06-04 14:41 | PN.CDI ---
CDI
- -
CDI:
Physician Documentation Request
Admit Date: 05/31/24 16:03
Dear Doctor Evelina,
Please review the following and provide your response in the progress notes.
Clinical Indicators:
Laboratory Tests
05/31/24 06/01/24 06/02/24
16:39 04:44 05:01
Creatinine 1.1 1.2 1.3
eGFR > 60.00 > 60.00 56.93
06/03/24 06/04/24
04:25 05:13
Creatinine 1.8 H 1.7 H
eGFR 38.53 41.26
Please clarify which of the following accurately represents the patient's renal status:
Acute kidney injury (non-traumatic) - see criteria
Acute renal failure (with type, if appropriate on chronic kidney disease (CKD) - please provide stage - see criteria)
Abnormal lab value, clinically insignificant
Other(please specify)
Criteria for AJIT*
1 Increase in serum creatinine by > or = to 0.3 mg/dL (> or = to 26.5 micromol/L) within 48 hours, OR
2 Increase in serum creatinine to > or = to 1.5 times baseline, which is known or presumed to have occurred within 7 days, OR
3 Urine volume < 0.5 nL/kg/hour for six hours
Stages of Chronic Kidney Disease*
Level Description GFR
G1 Normal or High >90
G2 Mildly decreased 60-89
G3a Mildly to moderately decreased 45-59
G3b Moderately to severely decreased 30-44
G4 Severely decreased 15-29
G5 Kidney failure <15
Use of terms such as suspected, likely, concern for, or probable (associated with a specific diagnosis that is being evaluated, monitored, or treated as if it exists) are acceptable and can be coded in the inpatient setting, when documented at the
time of discharge.
Thank you,
Yanet Tyler RN BSN CCDS
CDI Specialist
please contact via tiger text
Please use your independent medical judgment in providing your response.
*Source: Kidney Disease: Improving Global Outcomes (KDIGO) 2012
[2024-06-04] MEDS: TRIMOX/AMOXIL 50 MG PO (14:44)
--- NOTE | 2024-06-04 14:46 | PTCARENOTE ---
Dose #11 of Amoxicillin given per desensitization protocol. No s/s reaction noted. VSS.
Pt resting on and off. +BM today. Only ate water ice for lunch. Voiding small amounts of tea colored urine.
All other assessments unchanged.
[2024-06-04] MEDS: TRIMOX/AMOXIL 100 MG PO (15:00)
[2024-06-04] MEDS: TRIMOX/AMOXIL 200 MG PO (15:21)
[2024-06-04] MEDS: TRIMOX/AMOXIL 400 MG PO (15:44)
--- NOTE | 2024-06-04 15:45 | W.PN.UPDATE ---
Update Note
Progress Note Update
Reevaluated patient in the unit at about 1 and 2:30
no rashes, no wheezing, no stridor or laryngospasm
no complaints
desensitization in progress and patient currently doing well.
AW
--- NOTE | 2024-06-04 15:54 | W.PN.HOSP.TC ---
Today's Communication/Plan
-
Penicillin desensitization protocol with reintroduction of amoxicillin
AJIT. Bladder scan. Hold home losartan and Aldactone.
Hyperglycemic while holding oral glucose lowering medications increase basal bolus to moderate.
Assessment / Plan
Assessment / Plan
Impression:
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
Was diagnosed with toxic metabolic encephalopathy due to sepsis and fungemia (blood culture 05/25 positive for Alpa 2/). Patient was initiated on antibiotics while off amoxicillin suppression regimen with vancomycin and later micafungin for
candidemia. Repeated blood cultures negative to date. Workup for trauma was negative. Mental status improved with hydration and antibiotics. Had transient hypotension with acute kidney injury with now creatinine back to baseline. Patient
transferred for evaluation and consideration of СЕРГЕЙ, cardiology/CT surgery evaluation with concern for prosthetic valve endocarditis with fungemia.
Sepsis with fungemia.
Concern for prosthetic valve endocarditis
Widely metastatic colon carcinoma (liver, lung, skin)
� Recently on radiation treatment. Last chemotherapy session 04/27.
Right chest Chemo-Port in place.
Acute kidney injury
Other conditions:
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
Chronic heart failure reduced EF.
Echo 05/26: LVEF 30-35%. Mechanical aortic valve.
Paroxysmal atrial fibrillation
Status post PPM
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
Minimal nonobstructive CAD by catheterization 2008
History of rheumatic fever.
Essential hypertension
Type 2 diabetes NIDDM.
Hypothyroidism on replacement
Dyslipidemia
Anemia of chronic disease
History of UTI/CAUTI
BPH with history of urine retention requiring Holden catheter.
Chronic pain requiring opiates
Plan:*
Fungemia with Alpa parapsilosis blood cultures + 05/25/2024 2 out of 2 with repeated blood cultures negative to date
Remains on micafungin.
Rapid fungemia clearance reassuring hopefully against infected PPM, mechanical aortic valve, Chemo-Port.
Patient declined invasive workup including СЕРГЕЙ, surgical evaluation given advanced colon carcinoma as well as high risk.
Echocardiogram on 06/01 with no evidence of endovascular infection
Remains on micafungin.
ID input appreciated
Enterococcal endocarditis on amoxicillin suppression 500 mg 3 times daily. History of penicillin allergy requiring desensitization
Had been on vancomycin at the [facility].
Plan to reinstate amoxicillin with desensitization protocol on 06/04. Close ICU monitoring while desensitization.
Acute kidney injury. Creatinine 1.7�1.8
Noted with mild and transient hypotension
Bladder scan
Avoid hypotension, may need gentle hydration.
Hold losartan and Aldactone.
Follow BMP.
Blood glucose control
Chronic CHF reduced EF
Volume status compensated
Continue Aldactone, Cozaar monitoring renal function closely
Paroxysmal atrial fibrillation.
Continue Toprol
Mechanical aortic valve
Continue anticoagulation with warfarin. Goal INR 2.5�3.5
Mild nonobstructive CAD.
Continue beta-fadia
Continue statin
Metastatic to the liver, lungs, skin colon cancer
Rec chest chemotherapy port in place.
Recently on radiation treatment to the skin
Recently on chemotherapy infusion 04/27.
Oncology consultation
Type 2 diabetes
Hemoglobin A1c 6.9.
Diet has been advanced.
Continue basal bolus protocol increasing to moderate
Preadmission regimen glipizide/metformin will be reintroduced later.
BPH with history of retention and multiple UTIs
Monitor closely for
Continue Flomax
DNR
DVT prophylaxis:
Anticipated Discharge: > 48 hours
Subjective/Interval History
-
Date of Service: June 04, 2024
Objective Data
-
Labs:
Laboratory Results
06/04/24
05:13
PT 31.2 H
INR 2.95
APTT 73.6 H
Sodium 140
Potassium 3.7
Chloride 112 H
Carbon Dioxide 20 L
BUN 28 H
Creatinine 1.7 H
Glucose 180 H
Calcium 7.5 L
Vital Signs:
Vital Signs
Temp Pulse Resp BP Pulse Ox
97.4 F 60 22 111/57 97
06/04/24 14:50 06/04/24 15:40 06/04/24 15:40 06/04/24 15:40 06/04/24 15:40
I&O
06/03/24 06/04/24 06/05/24
06:59 06:59 06:59
Intake Total 480 / 480 730 / 730 150 / 150
Output Total 100 / 100 115 / 115
Balance 380 / 380 730 / 730 35 / 35
Physical Exam
-
General: Well Developed, Well Nourished, No Apparent Distress, Comfortable and Conversant; Negative Respiratory Distress
HEENT: Normocephalic, Atraumatic, Nose Appears Normal and Ears Appear Normal; Negative Oxygen
Respiratory: Clear to Auscultation and Non Labored Respirations; Negative Accessory Resp Muscle Use
Cardiac: Regular Rhythm and S1/S2
GI: Soft, Nontender, Nondistended and Normal Bowel Sounds
Genito-urinary: Holden
Skin: Warm and Dry
Neuro: Awake, Alert, Oriented and AO x 3
Psych: Calm and Intact Judgement/Insight
[2024-06-04] MEDS: AMOXIL 500 MG PO ×2 (16:11→21:41)
[2024-06-04] MEDS: ZETIA 10 MG PO (18:09)
[2024-06-04] MEDS: COUMADIN 2 MG PO (18:17)
[2024-06-04] MEDS: TOPROL XL 25 MG PO (18:17)
[2024-06-04 18:28] LABS: Glucose - Point of Care 270 mg/dl (70-99)
--- NOTE | 2024-06-04 20:30 | PTCARENOTE ---
Assumed care of pt at 1900. Pt is A/O x4, pleasant and cooperative with care. Able to ambulate to BR with rolling walker and standby assistance, had BM in beginning of shift and then became dyspneic on exertion and wanted to go back to bed. Brushed
teeth while sitting on side of bed. Assessment completed, see nursing shift assessment flowsheet for full details. SpO2 96% on RA even when pt was having POST. Occasional dry non-productive cough noted. 100% V paced on monitor with occasional (~50%)
A pacing spikes noted as well. Call cintron and personal items within reach.
[2024-06-04] MEDS: CRESTOR 40 MG PO (21:41)
[2024-06-04] MEDS: SEROQUEL 25 MG PO (21:41)
[2024-06-04] MEDS: NOVOLOG FLEXPEN 7 UNITS SC (21:49)
[2024-06-04 21:52] LABS: Glucose - Point of Care 253 mg/dl (70-99)
[2024-06-05] VITALS (21 sets, daily range): BP systolic 83–133; BP diastolic 41–71; BMI 25.9
--- NOTE | 2024-06-05 00:21 | PTCARENOTE ---
Assessment unchanged. 100% V paced on monitor with HR at 60, occasional A pacing spikes, SpO2 96% on RA.
--- NOTE | 2024-06-05 04:30 | PTCARENOTE ---
Physical assessment unchanged from previous. V paced/AV paced on monitor, SpO2 96% on RA. Ambulated to BR with standby assist/walker.
[2024-06-05 05:03] LABS: % Basophils 0.3 % (0-2); % Eosinophils 1.1 % (0-6); % Immature Granulocytes 0.5 % (0-0.5); % Lymphocytes 17.7 % (20.5-51.1); % Monocytes 10.3 % (1.7-9.3); % Neutrophils 70.1 % (42.2-75.2); Absolute Eosinophils 0.1 10^3/uL (0-0.7); Absolute Immature Granulocytes 0.1 10^3/uL (0-0.05); Absolute Lymphocytes 2.2 10^3/uL (1.2-3.4); Absolute Monocytes 1.3 10^3/uL (0.1-0.6); Absolute Neutrophils 8.7 10^3/uL (1.4-6.5); Hematocrit 25.8 % (39.0-52.0); Hemoglobin 8.2 g/dL (13.0-18.0); Mean Corp Hgb Conc. 31.8 g/dL (33.0-37.0); Mean Corpuscular Hgb 24.8 pg (27.0-31.0); Mean Corpuscular Volume 78.2 fL (80.0-94.0); Nucleated Red Blood Cells % 0 % (-); Platelet Count 142 10^3/uL (130-400); Red Cell Dist. Width 19.9 % (11.5-14.5); White Blood Cell Count 12.3 10^3/uL (4.8-10.8)
[2024-06-05 05:06] LABS: INR 3.06; PT 31.5 Sec (11.4-14.6)
[2024-06-05 05:27] LABS: Blood Urea Nitrogen 31 mg/dl (9-20); Calcium 7.8 mg/dl (8.4-10.2); Carbon Dioxide 18 mmol/L (22-30); Chloride 111 mmol/L (98-107); Estimated Creatinine Clearance 38 ml/min; Glucose 116 mg/dl (70-99); Sodium 138 mmol/L (135-145); eGFR 41.26
[2024-06-05] MEDS: MYCAMINE 105 MG IV (06:14)
[2024-06-05] MEDS: FLUSH (NSS) 1 FLUSH IV (06:14)
[2024-06-05] MEDS: SYNTHROID 137 MCG PO (06:14)
--- NOTE | 2024-06-05 07:14 | W.PN.INTV ---
Today's Communication / Plan
Recommendations
Continue antibiotics per ID
Amoxicillin continues
Resume beta-fadia therapy
Okay for transfer out of ICU. We will sign off. Please call with questions
Assessment
-
78-year-old male with complex medical history, mechanical aortic valve with history of Enterococcus faecalis endocarditis on chronic amoxicillin suppression therapy since 2013, recent identified as having fungemia with Alpa 05/25/2024 while at
[facility]. Amoxicillin was held for 7 days. Patient is not requiring desensitization of penicillin to resume amoxicillin suppression therapy, transferred to ICU 06/04/2024
S/p penicillin desensitization 06/04/2024
Requiring chronic amoxicillin suppression therapy
Sepsis with fungemia
Alpa bacteremia per [facility] cultures 05/25
Treated with micafungin therapy
Chronic prosthetic valve Enterococcus faecalis endocarditis
On chronic amoxicillin suppression therapy since 2013
Fevers/chills, fall 05/25/2024
Conditions present prior to admission
Metastatic colon cancer (liver, lung, skin)
Status post recent radiation treatment/chemotherapy (April and May 2024)
Lower abdominal pain, skin involvement
Port in place
Cardiomyopathy, EF 30%
Mechanical aortic valve since 2013
History of cardioembolic stroke
August 2013 (left visual defect)
January 2014 (aphasia)
Hypertension/hyperlipidemia
Type 2 diabetes
Hypothyroidism
History of nephrolithiasis
BPH, urinary retention requiring Holden catheter in the past
Chronic pain syndrome
DNR
Plan/recommendations
At this time, patient appears to be comfortable with no complaints
Reviewed hospital course and inpatient and outpatient records at length
S/p penicillin desensitization 06/04 without issues
Patient being seen by infectious disease and cardiology. СЕРГЕЙ was not pursued given high risk and patient declined invasive workup as would not sales and service change leader
Moving forward
Continue with antibiotic therapy per infectious disease. Presently on micafungin and vancomycin
Amoxicillin continues
Echocardiogram with no obvious valvular lesions
Patient was on beta-fadia therapy, this has been held.
Can resume at discretion of primary service
Reviewed with critical care nursing
Okay for transfer to telemetry. We will sign off. Please call with questions
Subjective Dataa
Subjective Data
Date of Service:
Date of Service: June 05, 2024
Subjective:
Patient tolerated desensitization process yesterday without issues. Denies shortness of breath, chest pain, nausea, abdominal pain.
Objective Data
Data Reviewed
Vital Signs / I&O / Oxygen:
Vital Signs
Temp Pulse Resp BP Pulse Ox
98.2 F 64 24 107/58 95
06/05/24 03:02 06/05/24 06:00 06/05/24 06:00 06/05/24 06:00 06/05/24 06:00
Intake and Output
06/04/24 06/05/24 06/06/24
06:59 06:59 05:59
Intake Total 730 / 730 250 / 250
Output Total 540 / 540
Balance 730 / 730 -290 / -290
SaO2 95
Physical Exam
General: Comfortable
HEENT: Normocephalic and Anicteric
Cardiovascular: S1-S2, Regular Rhythm, Murmur (n) and Other (Mechanical S2)
Respiratory: Wheeze (n), Crackles (n), Rhonchi (n) and Non-Labored Respirations
GI: Soft, Distended and Non Tender
Neurology: Awake, Alert and No Motor Deficits
Skin: Cyanosis (n), Jaundice (n), Rash (n) and Other (Mild lower abdominal skin abnormality, dressing)
Labs/Micro/Reports
Lab Data
06/05/24 04:29
06/05/24 04:29
Laboratory Results
06/04/24 06/05/24
05:13 04:29
PT 31.2 H 31.5 H
INR 2.95 3.06
APTT 73.6 H
Microbiology
05/31/24 17:17 Blood/Venous Blood Culture - Preliminary
No Growth in 4 days- Final report to follow
05/31/24 16:52 Blood/Venous Blood Culture - Preliminary
No Growth in 4 days- Final report to follow
06/01/24 04:45 Urine Urine Culture - Preliminary
Yeast
[2024-06-05] MEDS: PROSCAR 5 MG PO (07:26)
[2024-06-05] MEDS: FLOMAX 0.4 MG PO (07:26)
[2024-06-05] MEDS: THERAGRAN 1 TABLET PO (07:26)
[2024-06-05] MEDS: AMOXIL 500 MG PO ×3 (07:26→21:01)
[2024-06-05] MEDS: TRICOR 145 MG PO (07:26)
[2024-06-05 07:27] LABS: Glucose - Point of Care 166 mg/dl (70-99)
[2024-06-05] MEDS: SILVADENE 1 APPLIC TOPICAL (07:28)
--- NOTE | 2024-06-05 08:20 | PTCARENOTE ---
Pt received in bed @ 0700. AAOx3. Denying pain at this time. Hard of hearing. Left side visual cut stated; baseline residual from old CVA. 100% V Paced on commercial credit portfolio manager with occasional A pacing. +1 LE edema. SaO2 96% on room air. Lungs
diminished at bases. Pt denies shortness of breath. Pt able to ambulate to bathroom with rolling walker and assist x1. Dyspneic on exertion apparent, but pt minimizes. SaO2 remains consistent with exertion. Urine brown. RLQ wound dressing C/D/I.
Right subq port patent.
--- NOTE | 2024-06-05 08:44 | W.PN.ID1 ---
Date of Service
Date of Service: June 05, 2024
Today's Communication
See below.
Assessment / Plan
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
Anaphylaxis to penicillin as a child
- as old records did not provide additional possible antibiotics on the culture results, pt successfully re-desensitized to amoxicillin
-Continue amoxicillin
Candidemia without clear source
Widely metastatic colon cancer
- ua at [facility] minimal pyuria - urine culture finalized negative; interestingly urine culture here 06/02 now with 30K yeast - will ask lab for ID
- no need for directed treatment at this time
- blood cultures 05/25 x2 8 min apart at [facility] both with C parapasilosis
- repeat blood cultures 05/27 x2 finalized negative
- paired cultures from the port and periphery 05/31 here - these are on 4 days of echinocandin - remain no growth to date
- CT a/p without evidence of biliary disease
- note widely metastatic disease 05/05/24 CT a/p of the abdomen here with thickening of the caecum and terminal ileum - transient translocation a possibility
- *Presence of mechanical AVR and PPM: TTE no gross vegetations. Per cardiology, 'not a candidate for redo AVR therefore will not recommend СЕРГЕЙ'.
In my opinion, СЕРГЕЙ will help determine the length of antifungal therapy and may need suppression if foreign body is infected.
- *Presence of port-a-cath: possible source of candidemia.
Should either 1) dc port, cx tip vs. 2) retain port, treat with course of antifungal, followed by surveillance blood cultures after completion of antifungal
-Will defer to patient's ID physician Dr. Martell for further management.
- continue micafungin
- prolonged QTc
- may consider stopping seroquel to allow for fluconazole use pending course
EW. Weekend coverage for Dr. Martell
Chief Complaint
-: Other (candidemia)
Subjective / Review of Systems
Feels well. No visual changes.
Vital Signs / Physical Exam
Vital Signs
Vital Signs
Temp Pulse Resp BP Pulse Ox
98.3 F 64 24 107/58 97
06/05/24 07:00 06/05/24 06:00 06/05/24 06:00 06/05/24 06:00 06/05/24 08:34
Physical Exam
Constitutional: No Acute Distress
Cardiovascular: Regular Rate and S1/S2
Pulmonary: Clear
Gastrointestinal: Soft, Non Tender and Non Distended
Neurological: AO x 3
Lines: HD Cath (RIJ no erythema)
Objective Data
Lab Data
Lab Results
06/05/24 04:29
06/05/24 04:29
PT 31.5 Sec (11.4-14.6) H 06/05/24 04:29
INR 3.06 06/05/24 04:29
APTT 73.6 Sec (23.4-35.0) H 06/04/24 05:13
Estimated Creat Clear 38 ml/min 06/05/24 04:29
Total Bilirubin 0.8 mg/dl (0.2-1.3) 06/01/24 04:44
AST 81 U/L (17-59) H 06/01/24 04:44
ALT 43 U/L (0-50) 06/01/24 04:44
Alkaline Phosphatase 104 U/L (38-126) 06/01/24 04:44
Most recent labs reviewed.
Micro Results:
05/31/24 17:17 Blood Culture - Preliminary
Blood/Venous No Growth in 4 days- Final report to follow
05/31/24 16:52 Blood Culture - Preliminary
Blood/Venous No Growth in 4 days- Final report to follow
06/01/24 04:45 Urine Culture - Preliminary
Urine Yeast
[2024-06-05] MEDS: NOVOLOG FLEXPEN-MODERATE RESISTANCE 1 UNITS SC ×2 (09:50→16:20)
--- NOTE | 2024-06-05 14:01 | W.PN.HOSP.TC ---
Today's Communication/Plan
-
see note
Assessment / Plan
Assessment / Plan
06/05
Patient underwent penicillin desensitization and tolerating without any problems
Downgraded to telemetry floor at this
Continue antifungal therapy per ID recommendation
PT OT evaluation ordered
INR was upper normal cutoff, hold warfarin today
Creatinine remains elevated 1.7 continue monitor

Impression:
78 years old male with history of prosthetic valve endocarditis on amoxicillin suppression, metastatic colon carcinoma recently on chemotherapy and radiation admitted to [facility] on 05/25 with altered mental status post fall.
Was diagnosed with toxic metabolic encephalopathy due to sepsis and fungemia (blood culture 05/25 positive for Alpa 09/05). Patient was initiated on antibiotics while off amoxicillin suppression regimen with vancomycin and later micafungin for
candidemia. Repeated blood cultures negative to date. Workup for trauma was negative. Mental status improved with hydration and antibiotics. Had transient hypotension with acute kidney injury with now creatinine back to baseline. Patient
transferred for evaluation and consideration of СЕРГЕЙ, cardiology/CT surgery evaluation with concern for prosthetic valve endocarditis with fungemia.
Sepsis with fungemia.
Concern for prosthetic valve endocarditis
Widely metastatic colon carcinoma (liver, lung, skin)
� Recently on radiation treatment. Last chemotherapy session 04/27.
Right chest Chemo-Port in place.
Acute kidney injury
Other conditions:
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
Chronic heart failure reduced EF.
Echo 05/26: LVEF 30-35%. Mechanical aortic valve.
Paroxysmal atrial fibrillation
Status post PPM
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
Minimal nonobstructive CAD by catheterization 2008
History of rheumatic fever.
Essential hypertension
Type 2 diabetes NIDDM.
Hypothyroidism on replacement
Dyslipidemia
Anemia of chronic disease
History of UTI/CAUTI
BPH with history of urine retention requiring Holden catheter.
Chronic pain requiring opiates
Plan:*
Fungemia with Alpa parapsilosis blood cultures + 05/25/2024 2 out of 2 with repeated blood cultures negative to date
Remains on micafungin.
Rapid fungemia clearance reassuring hopefully against infected PPM, mechanical aortic valve, Chemo-Port.
Patient declined invasive workup including СЕРГЕЙ, surgical evaluation given advanced colon carcinoma as well as high risk.
Echocardiogram on 06/01 with no evidence of endovascular infection
Remains on micafungin.
ID input appreciated
Enterococcal endocarditis on amoxicillin suppression 500 mg 3 times daily. History of penicillin allergy requiring desensitization
Had been on vancomycin at the [facility].
Plan to reinstate amoxicillin with desensitization protocol on 06/04. Close ICU monitoring while desensitization.
Acute kidney injury. Creatinine 1.7�1.8
Noted with mild and transient hypotension
Bladder scan
Avoid hypotension, may need gentle hydration.
Hold losartan and Aldactone.
Follow BMP.
Blood glucose control
Chronic CHF reduced EF
Volume status compensated
Continue Aldactone, Cozaar monitoring renal function closely
Paroxysmal atrial fibrillation.
Continue Toprol
Mechanical aortic valve
Continue anticoagulation with warfarin. Goal INR 2.5�3.5
Mild nonobstructive CAD.
Continue beta-fadia
Continue statin
Metastatic to the liver, lungs, skin colon cancer
Rec chest chemotherapy port in place.
Recently on radiation treatment to the skin
Recently on chemotherapy infusion 04/27.
Oncology consultation
Type 2 diabetes
Hemoglobin A1c 6.9.
Diet has been advanced.
Continue basal bolus protocol increasing to moderate
Preadmission regimen glipizide/metformin will be reintroduced later.
BPH with history of retention and multiple UTIs
Monitor closely for
Continue Flomax
DNR
DVT prophylaxis:

Anticipated Discharge: > 48 hours
Subjective/Interval History
-
Date of Service: June 05, 2024
No problems overnight
Denies of having any abdominal pain/nausea/vomiting
Afebrile
Objective Data
-
Labs:
Laboratory Results
06/05/24
04:29
WBC 12.3 H
Hgb 8.2 L
Hct 25.8 L
Plt Count 142 D
PT 31.5 H
INR 3.06
Sodium 138
Potassium 4.0
Chloride 111 H
Carbon Dioxide 18 L
BUN 31 H
Creatinine 1.7 H
Glucose 116 H
Calcium 7.8 L
Vital Signs:
Vital Signs
Temp Pulse Resp BP Pulse Ox
97.8 F 62 22 109/65 96
06/05/24 11:00 06/05/24 11:00 06/05/24 10:00 06/05/24 10:00 06/05/24 09:00
I&O
06/04/24 06/05/24 06/06/24
06:59 06:59 05:59
Intake Total 730 / 730 250 / 250 360 / 360
Output Total 540 / 540 175 / 175
Balance 730 / 730 -290 / -290 185 / 185
Review of Systems
-
Respiratory: Reports No Symptoms
Cardiac: Reports No Symptoms
Abdomen/GI: Reports No Symptoms
Physical Exam
-
General: No Apparent Distress and Comfortable
HEENT: Negative Oxygen
Respiratory: Clear to Auscultation
Cardiac: Regular Rhythm and S1/S2; Negative Murmur or Rub
GI: Soft, Nontender, Nondistended and Normal Bowel Sounds
Musculoskeletal: No Edema
Neuro: Awake, Alert, Oriented, No Motor Deficits and Nonfocal/Grossly Intact
Psych: Calm
[2024-06-05] MEDS: NOVOLOG FLEXPEN-MODERATE RESISTANCE 3 UNITS SC (14:15)
[2024-06-05 14:24] LABS: Glucose - Point of Care 217 mg/dl (70-99)
[2024-06-05 16:30] LABS: Glucose - Point of Care 177 mg/dl (70-99)
[2024-06-05] MEDS: ZETIA 10 MG PO (17:24)
[2024-06-05] MEDS: TOPROL XL 25 MG PO (17:24)
[2024-06-05] MEDS: CRESTOR 40 MG PO (21:01)
[2024-06-05] MEDS: SEROQUEL 25 MG PO (21:01)
[2024-06-05 22:21] LABS: Glucose - Point of Care 213 mg/dl (70-99)
[2024-06-05] MEDS: NOVOLOG FLEXPEN 4 UNITS SC (22:29)
--- NOTE | 2024-06-05 23:17 | PTCARENOTE ---
Assumed care of pt at 1900. Pt is A/O x4, pleasant and cooperative with care. No c/o pain. Able to ambulate to BR with rolling walker/standby assist. 100% AV paced on monitor. SpO2 spot checked, 96% on RA. See nursing shift assessment flowsheet for
full physical assessment details.
[2024-06-06] VITALS (12 sets, daily range): BP systolic 95–125; BP diastolic 57–80; PULSE 82; BMI 25.8
[2024-06-06] MEDS: FLUSH (NSS) 1 FLUSH IV (05:05)
[2024-06-06] MEDS: MYCAMINE 105 MG IV (05:05)
[2024-06-06] MEDS: SYNTHROID 137 MCG PO (05:25)
[2024-06-06 05:53] LABS: INR 3.15; PT 32.3 Sec (11.4-14.6)
[2024-06-06 05:54] LABS: Hematocrit 26.9 % (39.0-52.0); Hemoglobin 8.7 g/dL (13.0-18.0); Mean Corp Hgb Conc. 32.3 g/dL (33.0-37.0); Mean Corpuscular Hgb 25.2 pg (27.0-31.0); Platelet Count 159 10^3/uL (130-400); Red Blood Cell Count 3.45 10^6/uL (4.70-6.10); Red Cell Dist. Width 19.8 % (11.5-14.5); White Blood Cell Count 11.4 10^3/uL (4.8-10.8)
[2024-06-06 06:34] LABS: Blood Urea Nitrogen 28 mg/dl (9-20); Calcium 7.9 mg/dl (8.4-10.2); Carbon Dioxide 18 mmol/L (22-30); Chloride 110 mmol/L (98-107); Estimated Creatinine Clearance 41 ml/min; Glucose 135 mg/dl (70-99); Sodium 138 mmol/L (135-145); eGFR 44.38
[2024-06-06] MEDS: NOVOLOG FLEXPEN-MODERATE RESISTANCE 1 UNITS SC (08:15)
[2024-06-06] MEDS: PROSCAR 5 MG PO (08:16)
[2024-06-06] MEDS: COZAAR 25 MG PO (08:16)
[2024-06-06] MEDS: FLOMAX 0.4 MG PO (08:16)
[2024-06-06] MEDS: AMOXIL 500 MG PO ×3 (08:16→21:08)
[2024-06-06] MEDS: THERAGRAN 1 TABLET PO (08:16)
[2024-06-06] MEDS: TRICOR 145 MG PO (08:16)
[2024-06-06] MEDS: SILVADENE 1 APPLIC TOPICAL (08:16)
[2024-06-06 08:25] LABS: Glucose - Point of Care 159 mg/dl (70-99)
--- NOTE | 2024-06-06 09:28 | W.PN.ID1 ---
Date of Service
Date of Service: June 06, 2024
Today's Communication
See below.
Assessment / Plan
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
Anaphylaxis to penicillin as a child
- as old records did not provide additional possible antibiotics on the culture results, pt successfully re-desensitized to amoxicillin
-Continue amoxicillin
Candidemia without clear source
Widely metastatic colon cancer
- blood cultures 05/25 x2 8 min apart at [facility] both with C parapasilosis
- repeat blood cultures 05/27 x2 finalized negative
- paired cultures from the port and periphery 05/31 here - these are on 4 days of echinocandin - negative
- Not urine source. Ua at [facility] minimal pyuria - urine culture finalized negative; urine culture here 06/02 with 30K yeast from candidemia source.
Yeast identification pending.
No need for directed treatment at this time
- CT a/p without evidence of biliary disease
- note widely metastatic disease 05/05/24 CT a/p of the abdomen here with thickening of the caecum and terminal ileum - transient translocation a possibility
- * Presence of mechanical AVR and PPM: TTE no gross vegetations. Per cardiology, 'not a candidate for redo AVR therefore will not recommend СЕРГЕЙ'.
In my opinion, СЕРГЕЙ will help determine the length of antifungal therapy and may need suppression if foreign body is infected.
- * Presence of port-a-cath: possible source of candidemia.
Should either 1) dc port, cx tip vs. 2) retain port, treat with course of antifungal, followed by surveillance blood cultures after completion of antifungal
-Will discuss and defer to patient's ID physician Dr. Martell for further management.
- Continue micafungin
- prolonged QTc
- may consider stopping seroquel to allow for fluconazole use pending course
EW. Weekend coverage for Dr. Martell
Chief Complaint
-: Other (candidemia)
Subjective / Review of Systems
Feels fine. No visual changes.
Vital Signs / Physical Exam
Vital Signs
Vital Signs
Temp Pulse Resp BP Pulse Ox
98.1 F 79 22 112/68 96
06/06/24 08:17 06/06/24 09:00 06/05/24 10:00 06/06/24 08:00 06/05/24 20:05
Physical Exam
Constitutional: No Acute Distress and Comfortable
Eyes: No Conjunctival Hemorrhage and Sclera Anicteric
Cardiovascular: Regular Rate, S1/S2 and Other (LCW AICD pocket site without erythema/induration)
Pulmonary: Clear
Gastrointestinal: Soft, Non Tender, Non Distended and Normal Bowel Sounds
Extremities: Negative Edema
Neurological: AO x 3
Lines: Port (RCW no erythema)
Objective Data
Lab Data
Lab Results
06/06/24 05:31
06/06/24 05:31
PT 32.3 Sec (11.4-14.6) H 06/06/24 05:31
INR 3.15 06/06/24 05:31
APTT 73.6 Sec (23.4-35.0) H 06/04/24 05:13
Estimated Creat Clear 41 ml/min 06/06/24 05:31
Total Bilirubin 0.8 mg/dl (0.2-1.3) 06/01/24 04:44
AST 81 U/L (17-59) H 06/01/24 04:44
ALT 43 U/L (0-50) 06/01/24 04:44
Alkaline Phosphatase 104 U/L (38-126) 06/01/24 04:44
Most recent labs reviewed.
Micro Results:
05/31/24 17:17 Blood Culture - Final
Blood/Venous No Growth - Final Report
05/31/24 16:52 Blood Culture - Final
Blood/Venous No Growth - Final Report
06/01/24 04:45 Urine Culture - Preliminary
Urine Yeast
Care Review
Plan reviewed with: Physician (Dr. John Retana)
--- NOTE | 2024-06-06 10:53 | PTCARENOTE ---
Rec'd pt at 0700. Pt AAOx3, flat affect. Follows commands, RICE with mild gen weakness. Monitor V-paced/AV-paced. Lungs dim bibasilarly. +BS, abd round/soft. Wound care done to abdomen as per orders. OOB to bathroom with walker and minimal standby
assist. Vdg brown urine. Pt sitting OOB in recliner chair with at bedside.
[2024-06-06] MEDS: NOVOLOG FLEXPEN-MODERATE RESISTANCE 3 UNITS SC ×2 (13:00→17:03)
[2024-06-06 13:11] LABS: Glucose - Point of Care 200 mg/dl (70-99)
--- NOTE | 2024-06-06 13:20 | PTCARENOTE ---
Pt. arrived to unit from ICU via wheelchair. Pt. VSS, no c/o pain at this time. Resting in bed with call cintron in reach.
--- NOTE | 2024-06-06 13:23 | TRANSFER ---
Pt transferred to tele room 404-2 via wheelchair, belongings with pt. notified of transfer.
--- NOTE | 2024-06-06 14:38 | W.PN.HOSP.TC ---
Today's Communication/Plan
-
see note
Assessment / Plan
Assessment / Plan
06/05
Patient underwent penicillin desensitization and tolerating without any problems
Downgraded to telemetry floor at this
Continue antifungal therapy per ID recommendation
PT OT evaluation ordered
INR was upper normal cutoff, hold warfarin today
Creatinine remains elevated 1.7 continue monitor
06/06
Creatinine slowly drifting down, asked RN to check postvoid residual
INR remains supratherapeutic, continue holding warfarin
Patient downgraded to telemetry floor today
ID input noted from today, await input from primary ID tomorrow.
PT evaluated and appropriate for home level care

Impression:
78 years old male with history of prosthetic valve endocarditis on amoxicillin suppression, metastatic colon carcinoma recently on chemotherapy and radiation admitted to [facility] on 05/25 with altered mental status post fall.
Was diagnosed with toxic metabolic encephalopathy due to sepsis and fungemia (blood culture 05/25 positive for Alpa 09/05). Patient was initiated on antibiotics while off amoxicillin suppression regimen with vancomycin and later micafungin for
candidemia. Repeated blood cultures negative to date. Workup for trauma was negative. Mental status improved with hydration and antibiotics. Had transient hypotension with acute kidney injury with now creatinine back to baseline. Patient
transferred for evaluation and consideration of СЕРГЕЙ, cardiology/CT surgery evaluation with concern for prosthetic valve endocarditis with fungemia.
Sepsis with fungemia.
Concern for prosthetic valve endocarditis
Widely metastatic colon carcinoma (liver, lung, skin)
� Recently on radiation treatment. Last chemotherapy session 04/27.
Right chest Chemo-Port in place.
Acute kidney injury
Other conditions:
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
Chronic heart failure reduced EF.
Echo 05/26: LVEF 30-35%. Mechanical aortic valve.
Paroxysmal atrial fibrillation
Status post PPM
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
Minimal nonobstructive CAD by catheterization 2008
History of rheumatic fever.
Essential hypertension
Type 2 diabetes NIDDM.
Hypothyroidism on replacement
Dyslipidemia
Anemia of chronic disease
History of UTI/CAUTI
BPH with history of urine retention requiring Holden catheter.
Chronic pain requiring opiates
Plan:*
Fungemia with Alpa parapsilosis blood cultures + 05/25/2024 2 out of 2 with repeated blood cultures negative to date
Remains on micafungin.
Rapid fungemia clearance reassuring hopefully against infected PPM, mechanical aortic valve, Chemo-Port.
Patient declined invasive workup including СЕРГЕЙ, surgical evaluation given advanced colon carcinoma as well as high risk.
Echocardiogram on 06/01 with no evidence of endovascular infection
Remains on micafungin.
ID input appreciated
Enterococcal endocarditis on amoxicillin suppression 500 mg 3 times daily. History of penicillin allergy requiring desensitization
Had been on vancomycin at the [facility].
Plan to reinstate amoxicillin with desensitization protocol on 06/04. Close ICU monitoring while desensitization.
Acute kidney injury. Creatinine 1.7�1.8
Noted with mild and transient hypotension
Bladder scan
Avoid hypotension, may need gentle hydration.
Hold losartan and Aldactone.
Follow BMP.
Blood glucose control
Chronic CHF reduced EF
Volume status compensated
Continue Aldactone, Cozaar monitoring renal function closely
Paroxysmal atrial fibrillation.
Continue Toprol
Mechanical aortic valve
Continue anticoagulation with warfarin. Goal INR 2.5�3.5
Mild nonobstructive CAD.
Continue beta-fadia
Continue statin
Metastatic to the liver, lungs, skin colon cancer
Rec chest chemotherapy port in place.
Recently on radiation treatment to the skin
Recently on chemotherapy infusion 04/27.
Oncology consultation
Type 2 diabetes
Hemoglobin A1c 6.9.
Diet has been advanced.
Continue basal bolus protocol increasing to moderate
Preadmission regimen glipizide/metformin will be reintroduced later.
BPH with history of retention and multiple UTIs
Monitor closely for
Continue Flomax
DNR
DVT prophylaxis:

Anticipated Discharge: 24 - 48 hours
Subjective/Interval History
-
Date of Service: June 06, 2024
Resting comfortably in bed
Afebrile and night
No reported issues
Objective Data
-
Labs:
Laboratory Results
06/06/24
05:31
WBC 11.4 H
Hgb 8.7 L
Hct 26.9 L
Plt Count 159
PT 32.3 H
INR 3.15
Sodium 138
Potassium 4.0
Chloride 110 H
Carbon Dioxide 18 L
BUN 28 H
Creatinine 1.6 H
Glucose 135 H
Calcium 7.9 L
Vital Signs:
Vital Signs
Temp Pulse Resp BP Pulse Ox
98 F 85 18 123/75 99
06/06/24 13:26 06/06/24 13:26 06/06/24 13:26 06/06/24 13:26 06/06/24 13:36
I&O
06/05/24 06/06/24 06/07/24
07:59 06:59 06:59
Intake Total
Output Total 250 / 250
Balance -250 / -250
Review of Systems
-
Respiratory: Reports No Symptoms
Cardiac: Reports No Symptoms
Abdomen/GI: Reports No Symptoms
Physical Exam
-
General: No Apparent Distress and Comfortable
HEENT: Negative Oxygen
Respiratory: Clear to Auscultation
Cardiac: Regular Rhythm and S1/S2; Negative Murmur or Rub
GI: Soft, Nontender, Nondistended and Normal Bowel Sounds
Musculoskeletal: No Edema
Neuro: Awake, Alert, Oriented, No Motor Deficits and Nonfocal/Grossly Intact
Psych: Calm
[2024-06-06] MEDS: ZETIA 10 MG PO (16:47)
[2024-06-06] MEDS: TOPROL XL 25 MG PO (16:47)
[2024-06-06 17:05] LABS: Glucose - Point of Care 202 mg/dl (70-99)
[2024-06-06] MEDS: CRESTOR 40 MG PO (21:08)
[2024-06-06] MEDS: SEROQUEL 25 MG PO (21:08)
[2024-06-06 21:17] LABS: Glucose - Point of Care 156 mg/dl (70-99)
[2024-06-07 03:14] VITALS: BP 127/75
[2024-06-07 05:18] LABS: Blood Urea Nitrogen 24 mg/dl (9-20); Calcium 7.7 mg/dl (8.4-10.2); Carbon Dioxide 19 mmol/L (22-30); Chloride 111 mmol/L (98-107); Estimated Creatinine Clearance 46 ml/min; Glucose 144 mg/dl (70-99); Potassium 3.9 mmol/L (3.5-5.1); Sodium 138 mmol/L (135-145); eGFR 52.09
[2024-06-07] MEDS: MYCAMINE 105 MG IV (05:40)
[2024-06-07] MEDS: FLUSH (NSS) 1 FLUSH IV (05:40)
[2024-06-07] MEDS: SYNTHROID 137 MCG PO (05:41)
[2024-06-07 06:00] VITALS: BMI 25.7
[2024-06-07 07:39] VITALS: BP 123/77
[2024-06-07] MEDS: COZAAR 25 MG PO (08:01)
[2024-06-07] MEDS: PROSCAR 5 MG PO (08:01)
[2024-06-07] MEDS: AMOXIL 500 MG PO ×3 (08:02→21:27)
[2024-06-07] MEDS: TRICOR 145 MG PO (08:02)
[2024-06-07] MEDS: FLOMAX 0.4 MG PO (08:02)
[2024-06-07] MEDS: THERAGRAN 1 TABLET PO (08:02)
[2024-06-07] MEDS: SILVADENE 1 APPLIC TOPICAL (08:03)
[2024-06-07 09:49] LABS: Glucose - Point of Care 169 mg/dl (70-99)
[2024-06-07] MEDS: NOVOLOG FLEXPEN-MODERATE RESISTANCE 1 UNITS SC (09:49)
[2024-06-07 11:11] VITALS: BP 116/65
[2024-06-07 11:51] LABS: Glucose - Point of Care 268 mg/dl (70-99)
--- NOTE | 2024-06-07 11:54 | W.PN.ID1 ---
Date of Service
Date of Service: June 07, 2024
Today's Communication
port removal
start fluconazole, stopped seroquel
Assessment / Plan
Candidemia without clear source
Widely metastatic colon cancer
- blood cultures 05/25 x2 8 min apart at [facility] both with C parapasilosis
- repeat blood cultures 05/27 x2 finalized negative
- paired cultures from the port and periphery 05/31 here - these are on 4 days of echinocandin - negative
- Not urine source. Ua at [facility] minimal pyuria - urine culture finalized negative; urine culture here 06/02 with 30K yeast from candidemia source.
Also C parapsilosis; fluconzole will reach meaningful concentration in the urine
- CT a/p without evidence of biliary disease
- note widely metastatic disease 05/05/24 CT a/p of the abdomen here with thickening of the caecum and terminal ileum - transient translocation a possibility
- port will be removed - today if feasible - ordered PT/INR as recently supratherapeutic
- rediscussed with Dr Lewis, will proceed with fluconazole suppression in addition to the amoxicillin
- stop seroquel
- Dr Lewis and the cardiology office will follow up his warfarin dosing and are aware of the addition of fluconazole
- dose adjusted for renal function - as stephan continues to improve may consider a dose adjustment
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
Anaphylaxis to penicillin as a child
- as old records did not provide additional possible antibiotics on the culture results, pt successfully re-desensitized to amoxicillin
- continue amoxicillin suppression indefinitely
Chief Complaint
-: Other (candidemia)
Subjective / Review of Systems
afebrile
bp stable
no events overnight
Vital Signs / Physical Exam
Vital Signs
Vital Signs
Temp Pulse Resp BP Pulse Ox
97.5 F 84 18 116/65 97
06/07/24 11:11 06/07/24 11:11 06/07/24 11:11 06/07/24 11:11 06/07/24 11:11
Physical Exam
Constitutional: No Acute Distress
Cardiovascular: Regular Rate and S1/S2; Negative Murmur or Rub
Pulmonary: Clear and Symmetric; Negative Wheezes or Rales
Gastrointestinal: Soft, Non Tender, Non Distended and Normal Bowel Sounds
Skin: Warm and Dry; Negative Rash or Jaundice
Objective Data
Lab Data
Lab Results
06/06/24 05:31
06/07/24 04:41
PT 32.3 Sec (11.4-14.6) H 06/06/24 05:31
INR 3.15 06/06/24 05:31
APTT 73.6 Sec (23.4-35.0) H 06/04/24 05:13
Estimated Creat Clear 46 ml/min 06/07/24 04:41
Total Bilirubin 0.8 mg/dl (0.2-1.3) 06/01/24 04:44
AST 81 U/L (17-59) H 06/01/24 04:44
ALT 43 U/L (0-50) 06/01/24 04:44
Alkaline Phosphatase 104 U/L (38-126) 06/01/24 04:44
Most recent labs reviewed.
Micro Results:
06/01/24 04:45 Urine Culture - Final
Urine Alpa parapsilosis
05/31/24 17:17 Blood Culture - Final
Blood/Venous No Growth - Final Report
05/31/24 16:52 Blood Culture - Final
Blood/Venous No Growth - Final Report
Care Review
Plan reviewed with: Physician (Dr Hoyt - lang hancock)
[2024-06-07] MEDS: NOVOLOG FLEXPEN-MODERATE RESISTANCE 5 UNITS SC (12:10)
[2024-06-07 12:31] VITALS: BMI 25.7
[2024-06-07 13:02] LABS: INR 3.13; PT 32.1 Sec (11.4-14.6)
[2024-06-07] MEDS: DIFLUCAN 200 MG PO (13:06)
[2024-06-07 14:46] VITALS: BP 124/70
--- NOTE | 2024-06-07 15:18 | W.PN.HOSP.TC ---
Today's Communication/Plan
-
For Chemo-Port removal by interventional radiology.
Continue micafungin
Continue amoxicillin.
Hold losartan and Aldactone monitor renal function
Hold Coumadin tonight and follow INR
Assessment / Plan
Assessment / Plan
Impression:
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
Was diagnosed with toxic metabolic encephalopathy due to sepsis and fungemia (blood culture 05/25 positive for Alpa 2/). Patient was initiated on antibiotics while off amoxicillin suppression regimen with vancomycin and later micafungin for
candidemia. Repeated blood cultures negative to date. Workup for trauma was negative. Mental status improved with hydration and antibiotics. Had transient hypotension with acute kidney injury with now creatinine back to baseline. Patient
transferred for evaluation and consideration of СЕРГЕЙ, cardiology/CT surgery evaluation with concern for prosthetic valve endocarditis with fungemia.
Sepsis with fungemia.
Concern for prosthetic valve endocarditis
Widely metastatic colon carcinoma (liver, lung, skin)
� Recently on radiation treatment. Last chemotherapy session 04/27.
Right chest Chemo-Port in place.
Acute kidney injury
Other conditions:
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
Chronic heart failure reduced EF.
Echo 05/26: LVEF 30-35%. Mechanical aortic valve.
Paroxysmal atrial fibrillation
Status post PPM
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
Minimal nonobstructive CAD by catheterization 2008
History of rheumatic fever.
Essential hypertension
Type 2 diabetes NIDDM.
Hypothyroidism on replacement
Dyslipidemia
Anemia of chronic disease
History of UTI/CAUTI
BPH with history of urine retention requiring Holden catheter.
Chronic pain requiring opiates
Plan:*
Fungemia with Alpa parapsilosis blood cultures + 05/25/2024 2 out of 2 with repeated blood cultures negative to date
Urine culture positive for Alpa parapsilosis
Remains on micafungin.
Rapid fungemia clearance reassuring hopefully against infected PPM, mechanical aortic valve, Chemo-Port.
Patient declined invasive workup including СЕРГЕЙ, surgical evaluation given advanced colon carcinoma as well as high risk.
Echocardiogram on 06/01 with no evidence of endovascular infection
Remains on micafungin.
For right chest Chemo-Port removal scheduled on 06/07
ID input appreciated
Enterococcal endocarditis on amoxicillin suppression 500 mg 3 times daily. History of penicillin allergy requiring desensitization
Had been on vancomycin at the [facility].
Underwent successful desensitization to amoxicillin on 06/04.
Acute kidney injury. Creatinine 1.7�1.8-1.4
Noted with mild and transient hypotension
Bladder scan
Avoid hypotension, may need gentle hydration.
Hold losartan and Aldactone.
Follow BMP.
Chronic CHF reduced EF
Volume status compensated
Continue Aldactone, Cozaar monitoring renal function closely
Paroxysmal atrial fibrillation.
Continue Toprol
Mechanical aortic valve
Continue anticoagulation with warfarin. Goal INR 2.5�3.5
Mild nonobstructive CAD.
Continue beta-fadia
Continue statin
Metastatic to the liver, lungs, skin colon cancer
Rec chest chemotherapy port in place.
Recently on radiation treatment to the skin
Recently on chemotherapy infusion 04/27.
Oncology consultation
Type 2 diabetes
Hemoglobin A1c 6.9.
Diet has been advanced.
Continue basal bolus protocol increasing to moderate
Preadmission regimen glipizide/metformin will be reintroduced later.
BPH with history of retention and multiple UTIs
Monitor closely for
Continue Flomax
DNR
DVT prophylaxis:

Anticipated Discharge: 24 - 48 hours
Subjective/Interval History
-
Date of Service: June 07, 2024
Objective Data
-
Labs:
Laboratory Results
06/07/24 06/07/24
04:41 12:44
PT 32.1 H
INR 3.13
Sodium 138
Potassium 3.9
Chloride 111 H
Carbon Dioxide 19 L
BUN 24 H
Creatinine 1.4 H
Glucose 144 H
Calcium 7.7 L
Vital Signs:
Vital Signs
Temp Pulse Resp BP Pulse Ox
97.8 F 66 18 124/70 99
06/07/24 14:46 06/07/24 14:46 06/07/24 14:46 06/07/24 14:46 06/07/24 14:46
I&O
06/06/24 06/07/24 06/08/24
06:59 06:59 06:59
Intake Total 1060 / 1060
Output Total 250 / 250
Balance 810 / 810
Physical Exam
-
General: No Apparent Distress and Comfortable
HEENT: Negative Oxygen
Respiratory: Clear to Auscultation
Cardiac: Regular Rhythm and S1/S2; Negative Murmur or Rub
GI: Soft, Nontender, Nondistended and Normal Bowel Sounds
Musculoskeletal: No Edema
Neuro: Awake, Alert, Oriented, No Motor Deficits and Nonfocal/Grossly Intact
Psych: Calm
--- NOTE | 2024-06-07 16:00 | CM ---
Spoke with pt and Annetta at bedside
Patient transfer back from ICU for amoxicillin desensitization.
IMM reviewed signed on chart.
Pt requested ad was accepted with [facility] at [facility].
PLAN Home with [facility]
[2024-06-07] MEDS: TOPROL XL 25 MG PO (17:31)
[2024-06-07] MEDS: ZETIA 10 MG PO (17:31)
[2024-06-07 18:11] LABS: Glucose - Point of Care 225 mg/dl (70-99)
[2024-06-07] MEDS: NOVOLOG FLEXPEN-MODERATE RESISTANCE 3 UNITS SC (18:13)
[2024-06-07 19:41] VITALS: BP 120/68
[2024-06-07 21:22] LABS: Glucose - Point of Care 159 mg/dl (70-99)
[2024-06-07] MEDS: CRESTOR 40 MG PO (21:28)
--- NOTE | 2024-06-07 22:34 | W.PN.ONC2 ---
Today's Communication / Plan
-
Reassured pt that chemo can be given via PICC if needed.
He is currently ambulating with walker, will hopeful maintain sufficient performance status for treatment.
Impression
Impression
Alpa fungemia
Chronic endocarditis of mechanical AV, on chronic amoxicillin
Metastatic colorectal cancer, with mets to skin, liver, lungs, bone
Plan
Plan
anti-infective therapy per ID, known to Dr. Martell
s/p recent radiation to abd wall mets
Further systemic therapy planned, to begin FOLFIRI in next 1-2 weeks if performance status allows, timing TBD pending conversations with ID
DNR noted
Subjective/Objective
Chief Complaint
Heme/Onc Follow up of metastatic colon cancer, now with fungemia
Subjective
Pt unnerved by recommendation for port removal. Denies complaint.
Vital Signs:
Vital Signs
Temp Pulse Resp BP Pulse Ox
98.3 F 61 19 120/68 98
06/07/24 19:41 06/07/24 19:41 06/07/24 19:41 06/07/24 19:41 06/07/24 19:41
Lab Results:
Laboratory Data
WBC 11.4 10^3/uL (4.8-10.8) H 06/06/24 05:31
Hgb 8.7 g/dL (13.0-18.0) L 06/06/24 05:31
Plt Count 159 10^3/uL (130-400) 06/06/24 05:31
PT 32.1 Sec (11.4-14.6) H 06/07/24 12:44
INR 3.13 06/07/24 12:44
APTT 73.6 Sec (23.4-35.0) H 06/04/24 05:13
eGFR 52.09 06/07/24 04:41
[2024-06-07 23:53] VITALS: BP 134/77
[2024-06-08] MEDS: SYNTHROID 137 MCG PO (05:37)
[2024-06-08 06:00] VITALS: BMI 25.6
[2024-06-08 07:17] LABS: PT 29.5 Sec (11.4-14.6)
[2024-06-08 07:27] VITALS: BP 119/69
[2024-06-08 07:38] LABS: ALT (SGPT) 40 U/L (0-50); AST (SGOT) 82 U/L (17-59); Albumin 2.7 g/dl (3.5-5.0); Alkaline Phosphatase 151 U/L (38-126); Blood Urea Nitrogen 21 mg/dl (9-20); Carbon Dioxide 18 mmol/L (22-30); Chloride 110 mmol/L (98-107); Estimated Creatinine Clearance 43 ml/min; Glucose 147 mg/dl (70-99); Potassium 4.2 mmol/L (3.5-5.1); Sodium 140 mmol/L (135-145); Total Bilirubin 0.7 mg/dl (0.2-1.3); Total Protein 5.6 g/dl (6.3-8.2); eGFR 47.95
[2024-06-08 07:45] LABS: % Basophils 0.7 % (0-2); % Eosinophils 0.9 % (0-6); % Immature Granulocytes 0.6 % (0-0.5); % Lymphocytes 19.7 % (20.5-51.1); % Monocytes 8.5 % (1.7-9.3); % Neutrophils 69.6 % (42.2-75.2); Absolute Basophils 0.1 10^3/uL (0-0.2); Absolute Eosinophils 0.1 10^3/uL (0-0.7); Absolute Immature Granulocytes 0.1 10^3/uL (0-0.05); Absolute Lymphocytes 1.7 10^3/uL (1.2-3.4); Absolute Monocytes 0.7 10^3/uL (0.1-0.6); Hematocrit 31.3 % (39.0-52.0); Hemoglobin 9.9 g/dL (13.0-18.0); Mean Corp Hgb Conc. 31.6 g/dL (33.0-37.0); Mean Corpuscular Hgb 25.6 pg (27.0-31.0); Mean Corpuscular Volume 81.1 fL (80.0-94.0); Nucleated Red Blood Cells % 0 % (-); Platelet Count 154 10^3/uL (130-400); Red Blood Cell Count 3.86 10^6/uL (4.70-6.10); Red Cell Dist. Width 19.9 % (11.5-14.5); White Blood Cell Count 8.6 10^3/uL (4.8-10.8)
[2024-06-08 08:01] LABS: Glucose - Point of Care 151 mg/dl (70-99)
[2024-06-08] MEDS: AMOXIL 500 MG PO (08:21)
[2024-06-08] MEDS: TRICOR 145 MG PO (08:21)
[2024-06-08] MEDS: THERAGRAN 1 TABLET PO (08:21)
[2024-06-08] MEDS: FLOMAX 0.4 MG PO (08:21)
[2024-06-08] MEDS: NOVOLOG FLEXPEN-MODERATE RESISTANCE 1 UNITS SC ×2 (08:22→12:16)
[2024-06-08] MEDS: PROSCAR 5 MG PO (08:22)
[2024-06-08] MEDS: DIFLUCAN 200 MG PO (08:22)
[2024-06-08 09:39] VITALS: BP 124/76; BP_SYST 70
[2024-06-08 10:28] VITALS: BP 130/75; BP_SYST 73
[2024-06-08 10:48] VITALS: BP 132/79
--- NOTE | 2024-06-08 11:28 | W.PN.ID1 ---
Date of Service
Date of Service: June 08, 2024
Today's Communication
- port removed
- proceed with fluconazole suppression in addition to the amoxicillin
- stop seroquel - do not restart on dc
- Dr Lewis and the cardiology office will follow up his warfarin dosing and are aware of the addition of fluconazole
- EKG today reviewed with cardiology
- outpatient BMP friday
- I will put in script for fluconazole
- follow up in my office in about 1 month
- stable for dc from ID perspective
Assessment / Plan
Candidemia without clear source
Widely metastatic colon cancer
- blood cultures 05/25 x2 8 min apart at [facility] both with C parapasilosis
- repeat blood cultures 05/27 x2 finalized negative
- paired cultures from the port and periphery 05/31 here - these are on 4 days of echinocandin - negative
- Not urine source. Ua at [facility] minimal pyuria - urine culture finalized negative; urine culture here 06/02 with 30K yeast from candidemia source.
Also C parapsilosis; fluconzole will reach meaningful concentration in the urine
- CT a/p without evidence of biliary disease
- note widely metastatic disease 05/05/24 CT a/p of the abdomen here with thickening of the caecum and terminal ileum - transient translocation a possibility
- port removed
- proceed with fluconazole suppression in addition to the amoxicillin
- stop seroquel - do not restart on dc
- Dr Lewis and the cardiology office will follow up his warfarin dosing and are aware of the addition of fluconazole
- EKG today reviewed with cardiology
- outpatient BMP friday
- I will put in script for fluconazole
- follow up in my office in about 1 month
- stable for dc from ID perspective
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
Anaphylaxis to penicillin as a child
- as old records did not provide additional possible antibiotics on the culture results, pt successfully re-desensitized to amoxicillin
- continue amoxicillin suppression indefinitely
Chief Complaint
-: Other (candidemia)
Subjective / Review of Systems
afebrile
bp stable
port removed today
EKG with qtc 560 paced - reviewed with his bike technician Dr Lewis who accepts this
Vital Signs / Physical Exam
Vital Signs
Vital Signs
Temp Pulse Resp BP Pulse Ox
97.5 F 76 18 132/79 98
06/08/24 10:48 06/08/24 10:48 06/08/24 10:48 06/08/24 10:48 06/08/24 11:16
Physical Exam
Constitutional: No Acute Distress
Cardiovascular: Regular Rate and S1/S2; Negative Murmur or Rub
Pulmonary: Clear and Symmetric; Negative Wheezes or Rales
Gastrointestinal: Soft, Non Tender, Non Distended and Normal Bowel Sounds
Skin: Warm and Dry; Negative Rash or Jaundice
Objective Data
Lab Data
Lab Results
06/08/24 06:18
06/08/24 06:18
PT 29.5 Sec (11.4-14.6) H 06/08/24 06:18
INR 2.80 06/08/24 06:18
APTT 73.6 Sec (23.4-35.0) H 06/04/24 05:13
Estimated Creat Clear 43 ml/min 06/08/24 06:18
Total Bilirubin 0.7 mg/dl (0.2-1.3) 06/08/24 06:18
AST 82 U/L (17-59) H 06/08/24 06:18
ALT 40 U/L (0-50) 06/08/24 06:18
Alkaline Phosphatase 151 U/L (38-126) H 06/08/24 06:18
Most recent labs reviewed.
Micro Results:
06/07/24 08:25 Catheter Tip Culture - Pending
Pace Maker/Introd Port
06/01/24 04:45 Urine Culture - Final
Urine Alpa parapsilosis
05/31/24 17:17 Blood Culture - Final
Blood/Venous No Growth - Final Report
05/31/24 16:52 Blood Culture - Final
Blood/Venous No Growth - Final Report
Care Review
Plan reviewed with: Physician (Dr Lewis - [facility])
--- NOTE | 2024-06-08 11:56 | PTCARENOTE ---
Patient returned from right sided port removal. Dressing CDI. Ice pack in place. Denies pain. Vital signs stable. No complaints at this time.
[2024-06-08 12:05] LABS: Glucose - Point of Care 186 mg/dl (70-99)
[2024-06-08] MEDS: SILVADENE 1 APPLIC TOPICAL (12:26)
--- NOTE | 2024-06-08 13:21 | W.CON.NEPH ---
Consultation
-
Date/Time Consultation Requested: 06/08/2024 1200 noon
Date/Time Consultation Performed: 06/08/2024 130PM
Requesting Provider: Dr. Hoyt
Performing Provider: Dr. Shelby
Reason for Consultation: Acute kidney injury
Medical History
-
Chief Complaint: AJIT
History of Present Illness:
78M HX life long Amoxicillin for Enterococcus Endocarditis, PPM implant, HX Mechanical AoVR , chr warfarin admitted to [facility] as of 05/25/24 following found down and trauma alert.
Subsequent evaluation c/w AMS due to TME, Fungemia, sepsis with soft BP but not on pressors. Normalized WCC. Improved AJIT ( Cr 1.7 to 1.29 Know ACdz. Baseline Hgb 9.3. Hgb dropped to 7 with IVF. Tx 1 PRBC at [facility]. HX LVEF 30-35%.
was on IV vanco and Meropenem and Micofungin on transition to [place]. Patient's creatinine was 1.1 on admission to our hospital which peaked at 1.8 on 06/03/24. It is now 1.5 and we were consulted.
Past Medical History
Metastatic Colon Cancer
BPH / Urinary Retention / Indwelling Holden
Chronic HFrEF
Paroxysmal Atrial Fibrillation
Aortic Stenosis s/p Mechanical AVR
E faecalis Endocarditis
Hypertension
DM-II
Hypothyroidism
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
Chronic Hyponatremia
Nephrolithiasis / Staghorn Calculus
Mechanical AVR (2008)
PPM Placement
R ACW Port
Social History
Tobacco: Non-Smoker
Alcohol: Occasional
Family History
no ckd
Allergies / Home Medications
Allergy/AdvReac Type Severity Reaction Status Date / Time
sacubitril [From Entresto] Allergy Unknown Unknown Verified 06/05/23 19:22
valsartan [From Entresto] Allergy Unknown Unknown Verified 06/05/23 19:22
Penicillins Allergy 'KILL ME' Verified 06/05/23 19:22
-
anaphylaxis
venom-honey bee Allergy Unknown Verified 06/05/23 19:22
[bee venom (honey bee)]
�Medication �Instructions �Recorded �Confirmed �Type
fenofibrate nanocrystallized 145 145 mg PO DAILY High cholesterol 04/27/20 05/31/24 History
mg tablet
glipizide 5 mg tablet 5 mg PO QPM Diabetes 04/27/20 05/31/24 History
levothyroxine 137 mcg tablet 137 mcg PO DAILY Thyroid 04/27/20 05/31/24 History
metformin 1,000 mg tablet 1,000 mg PO DAILY Diabetes 04/27/20 05/31/24 History
rosuvastatin 40 mg tablet (Crestor) 40 mg PO HS High Cholesterol 04/27/20 05/31/24 History
ezetimibe 10 mg tablet (Zetia) 10 mg PO QPM High Cholesterol 08/09/22 05/31/24 History
tamsulosin 0.4 mg capsule (Flomax) 0.4 mg PO DAILY Urinary Issue 04/11/23 05/31/24 History
losartan 25 mg tablet 25 mg PO DAILY #30 tabs 05/09/23 05/31/24 Rx
spironolactone 25 mg tablet 12.5 mg (1/2 x 25 mg) PO DAILY #30 05/09/23 05/31/24 Rx
tabs
warfarin 1 mg tablet (Jantoven) 1.5 mg PO SUTUTHSA Blood Clot 06/05/23 05/31/24 History
Prevention/Tx
finasteride 5 mg tablet (Proscar) 5 mg PO DAILY Urinary Issue 06/06/23 05/31/24 History
caspofungin 50 mg intravenous 50 mg IV Q24H 05/31/24 05/31/24 History
solution
metoprolol succinate 25 mg 25 mg PO QPM Heart 05/31/24 05/31/24 History
tablet,extended release 24 hr Disease/Condition
oxycodone-acetaminophen 5 mg-325 1 tab PO Q6HPRN PRN severe pain 05/31/24 05/31/24 History
mg tablet
prochlorperazine maleate 10 mg 10 mg PO Q6HPRN PRN nausea/vomiting 05/31/24 05/31/24 History
tablet
quetiapine 25 mg tablet 25 mg PO HS Mental Health/Anxiety 05/31/24 05/31/24 History
therapeutic multivitamin 1 tab PO DAILY Supplement 05/31/24 05/31/24 History
warfarin 1 mg tablet 2 mg PO MOWEFR Blood Clot 05/31/24 05/31/24 History
Prevention/Tx
Review of Systems
-
History Source: Patient
All other systems: Negative unless noted
Physical Exam
Vital Signs
Vital Signs
Temp Pulse Resp BP Pulse Ox
97.5 F 76 18 132/79 98
06/08/24 10:48 06/08/24 10:48 06/08/24 10:48 06/08/24 10:48 06/08/24 11:16
Lab Results
06/08/24 06:18
06/08/24 06:18
WBC 8.6 10^3/uL (4.8-10.8) 06/08/24 06:18
RBC 3.86 10^6/uL (4.70-6.10) L 06/08/24 06:18
Hgb 9.9 g/dL (13.0-18.0) L 06/08/24 06:18
Hct 31.3 % (39.0-52.0) L 06/08/24 06:18
Plt Count 154 10^3/uL (130-400) 06/08/24 06:18
Sodium 140 mmol/L (135-145) 06/08/24 06:18
Potassium 4.2 mmol/L (3.5-5.1) 06/08/24 06:18
Chloride 110 mmol/L (98-107) H 06/08/24 06:18
Carbon Dioxide 18 mmol/L (22-30) L 06/08/24 06:18
BUN 21 mg/dl (9-20) H 06/08/24 06:18
Creatinine 1.5 mg/dL (0.7-1.3) H 06/08/24 06:18
eGFR 47.95 06/08/24 06:18
Glucose 147 mg/dl (70-99) H 06/08/24 06:18
Calcium 8.0 mg/dl (8.4-10.2) L 06/08/24 06:18
Dfh-G-Xesthzcfufq Pept 5860 pg/ml 06/01/24 04:45
Albumin 2.7 g/dl (3.5-5.0) L 06/08/24 06:18
Physical Exam
General: AOx3, Nontoxic , NAD
HEENT: PERRL, EOMI, Anicteric, Conjunctivae Clear, Ear/Nose Intact, Hearing Normal, Oropharynx Clear/Moist, Dentition Intact, Facial Symmetry, Neck Supple, Neck: Trachea Midline, No JVD and No Thyromegaly, no Bruits
Respiratory: Clear to auscultation bilaterally with normal lung exersion
Cardiac: S1/S2 and Regular Rate/Rhythm
Breast: Deferred by me
Abdomen: Soft, Nontender, distended, Normal Bowel Sounds and No Hepatosplenomegaly
Rectal: Deferred by Provider
Genito-urinary: No Costovertebral Tenderness
Extremities: No Clubbing, No Cyanosis and No Edema
Skin: No Rash or open lesions
Neuro: Nonfocal/Grossly Intact, CN II-XII (Intact) and Strength (Musculoskeletal exam 5 out of 5 both upper and lower extremities)
Hematologic/Lymphatic: No Cervical Lymphadenopathy, No Submandibular Lymphadenopathy and No Supraclavicular Lymphadenopathy
Psych: Mood/afflect aggravated Insight/judgement good and Appropriate
Vascular: plus 2 pedal and radial pulses
Data Reviewed
-
Radiology: Report Reviewed by me (CXR: pacer on left upper chest quadrant: )
CT Scan: Report Reviewed by me
Labs: Labs Reviewed by me (BMP CBC UA)
Old Records: Reviewed (1.1 (05/17/24))
Assessment/Plan
-
Impression:
AJIT (hematuria/proteinuria)
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
Alpa fungemia
Chronic endocarditis of mechanical AV, on chronic amoxicillin
Metastatic colorectal cancer, with mets to skin, liver, lungs, bone
Hypertension
Hypothyroidism
Diabetes
Chronic pain with opioid requirement
History of rheumatic fever
History of cardioembolic CVA in 2013
Pacemaker
Cardiomyopathy with ejection fraction of 30 to 35%
History of congestive heart failure
Left staghorn caclulus/bilateral cysts
Plan:
AJIT:
-Leading differential would include infectious glomerulonephritis with ongoing proteinuria and microhematuria: check complement levels
-vs. AIN from multiple antibiotic exposures: urine eos
-Obtain kidney and bladder ultra to evaluate for obstructive process
-Check urine protein to creatinine ratio to quantitate proteinuria
-Patient also likely has baseline underlying diabetic nephropathy
-ARB held
-Patient stated he is leaving the hospital and said 'I don't know why the Fuck you are here.'
[2024-06-08] MEDS: GLUCOTROL 2.5 MG PO (13:45)
[2024-06-08 14:54] LABS: Urine Albumin 1+ (Neg - Trace); Urine Bilirubin 1+ (Negative); Urine Character Very Cloudy (Clear); Urine Color Brown; Urine Glucose Negative (Negative); Urine Ketone Trace (Negative); Urine Leukocyte 2+ (Negative); Urine Nitrite Negative (Negative); Urine Occult Blood 4+ (Negative); Urine Urobilinogen 1+ (Neg - 1+)
[2024-06-08 15:08] LABS: Urine Squamous Cell 0-2 /LPF (Few)
[2024-06-08 15:09] LABS: Urine Red Blood Cell 80-90 /HPF (0-2); Urine White Cell 30-40 /HPF (0-5)
[2024-06-08 15:10] LABS: Urine Bacteria Moderate (Negative)
[2024-06-08 15:33] VITALS: BP 145/78
--- NOTE | 2024-06-08 15:39 | W.DS.TRANS ---
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
-
Discharge Instructions:
Sleep Apnea Risk Intermediate
Discharge Diagnosis/Procedures Sepsis with fungemia.
Concern for prosthetic valve endocarditis
Widely metastatic colon carcinoma (liver, lung,
skin)
� Recently on radiation treatment. Last
chemotherapy session 04/27.
Right chest Chemo-Port in place.
Acute kidney injury
Other conditions:
Mechanical aortic valve replacement on chronic
Coumadin
History of Enterococcus faecalis endocarditis on
chronic amoxicillin suppression since 2013 (
history of severe penicillin allergy required
desensitization)
Chronic heart failure reduced EF.
Echo 05/26: LVEF 30-35%. Mechanical aortic
valve.
Paroxysmal atrial fibrillation
Status post PPM
History of cardioembolic CVA, presumably
cardioembolic 08/2013 and 01/2014
Minimal nonobstructive CAD by catheterization
2008
History of rheumatic fever.
Essential hypertension
Type 2 diabetes NIDDM.
Hypothyroidism on replacement
Dyslipidemia
Anemia of chronic disease
History of UTI/CAUTI
BPH with history of urine retention requiring
Holden catheter.
Chronic pain requiring opiates
Blood Work BMP on 06/11.
Instructions:
Stand-Alone Forms:
Changes to Home Medications: Yes
Discharge Medications:
DC Medications w/original date entered in [facility]
fenofibrate nanocrystallized 145 mg tablet 145 mg PO DAILY High cholesterol 04/27/20
levothyroxine 137 mcg tablet 137 mcg PO DAILY Thyroid 04/27/20
rosuvastatin 40 mg tablet (Crestor) 40 mg PO HS High Cholesterol 04/27/20
ezetimibe 10 mg tablet (Zetia) 10 mg PO QPM High Cholesterol 08/09/22
tamsulosin 0.4 mg capsule (Flomax) 0.4 mg PO DAILY Urinary Issue 04/11/23
finasteride 5 mg tablet (Proscar) 5 mg PO DAILY Urinary Issue 06/06/23
metoprolol succinate 25 mg tablet,extended release 24 hr 25 mg PO QPM Heart Disease/Condition 05/31/24
oxycodone-acetaminophen 5 mg-325 mg tablet 1 tab PO Q6HPRN PRN severe pain 05/31/24
prochlorperazine maleate 10 mg tablet 10 mg PO Q6HPRN PRN nausea/vomiting 05/31/24
therapeutic multivitamin 1 tab PO DAILY Supplement 05/31/24
amoxicillin 500 mg capsule 500 mg PO TID #90 caps 06/08/24
fluconazole 200 mg tablet 200 mg PO DAILY #7 tabs 06/08/24
warfarin 1 mg tablet 1 mg PO DAILY #30 tabs 06/08/24
Home Medication Changes
Metformin, Glipizide, Aldactone, losartan, Seroquel stopped.
Fluconazole started
Coumadin dose reduced
Pending Results: No
--- NOTE | 2024-06-08 16:26 | CM ---
MD entered order for discharge.
Spoke with pt and Annetta at bedside ready for dc.
will drive him home.
Pt requested ad was accepted with [facility] at [facility].
PLAN Home with [facility]
--- NOTE | 2024-06-08 16:52 | PTCARENOTE ---
Reviewed discharge instructions with patient and . Reached out to hospitalist to clarify discharge medications. Metformin, glipizide and aldactone on hold as per MD at this time. IV removed. Patient left via transport in wheelchair. here to
transport patient home.
== END 2024-06-08 16:35 | disposition home or self-care (01) | DRG 871 ==
LOC: 4 EAST ACU 16:03
PROVIDERS: Internal Medicine; Nurse Practitioner Family; Radiology Vascular & Interventional Radiology; ADMITTING PHYSICIAN Internal Medicine; CONSULT PHYSICIAN Internal Medicine Cardiovascular Disease; CONSULT PHYSICIAN Internal Medicine Critical Care Medicine; CONSULT PHYSICIAN Internal Medicine Hematology & Oncology; CONSULT PHYSICIAN Specialist; CONSULT PHYSICIAN Student in an Organized Health Care Education/Training Program; FAMILY PHYSICIAN Family Medicine
PROC: 0JPT0WZ Removal of Totally Implantable Vascular Access Device from Trunk Subcutaneous Tissue and Fascia, Open Approach (ICD-10-PCS; 2024-06-08)
PROC: 05PY33Z Removal of Infusion Device from Upper Vein, Percutaneous Approach (ICD-10-PCS; 2024-06-08)
DX: B37.7 Candidal sepsis (principal); G92.8 Other toxic encephalopathy; I50.22 Chronic systolic (congestive) heart failure; C79.2 Secondary malignant neoplasm of skin; C78.7 Secondary malignant neoplasm of liver and intrahepatic bile duct; C78.02 Secondary malignant neoplasm of left lung; C78.01 Secondary malignant neoplasm of right lung; C79.51 Secondary malignant neoplasm of bone; Z66 Do not resuscitate; I42.9 Cardiomyopathy, unspecified; N17.9 Acute kidney failure, unspecified; E87.1 Hypo-osmolality and hyponatremia; C19 Malignant neoplasm of rectosigmoid junction; D84.821 Immunodeficiency due to drugs; I11.0 Hypertensive heart disease with heart failure; E11.9 Type 2 diabetes mellitus without complications; D63.0 Anemia in neoplastic disease; I35.8 Other nonrheumatic aortic valve disorders; B95.2 Enterococcus as the cause of diseases classified elsewhere; I48.0 Paroxysmal atrial fibrillation; Z86.73 Personal history of transient ischemic attack (TIA), and cerebral infarction without residual deficits; E03.9 Hypothyroidism, unspecified; I25.10 Atherosclerotic heart disease of native coronary artery without angina pectoris; N40.1 Benign prostatic hyperplasia with lower urinary tract symptoms; R33.8 Other retention of urine; I95.9 Hypotension, unspecified; G89.4 Chronic pain syndrome; Z79.84 Long term (current) use of oral hypoglycemic drugs; Z79.890 Hormone replacement therapy; Z79.2 Long term (current) use of antibiotics; Z95.0 Presence of cardiac pacemaker; Z95.828 Presence of other vascular implants and grafts; Z88.0 Allergy status to penicillin; Z79.01 Long term (current) use of anticoagulants; Z95.2 Presence of prosthetic heart valve; Y83.1 Surgical operation with implant of artificial internal device as the cause of abnormal reaction of the patient, or of later complication, without mention of misadventure at the time of the procedure; Z79.899 Other long term (current) drug therapy; Z79.891 Long term (current) use of opiate analgesic
CPT/HCPCS: 36590; 71045; 77001; 80048; 80053; 80202; 81003; 81015; 82962; 83036; 83735; 83880; 85025; 85027; 85610; 85730; 87040; 87084; 87086; 87106; 93005; 93306; 97162; 97166; 97530

== ENCOUNTER → 2024-06-11 13:38 | Outpatient (REF) | payer MEDICARE, SELFPAY ==
[2024-06-11 15:10] LABS: INR 2.85; PT 29.8 Sec (11.4-14.6)
[2024-06-11 15:21] LABS: ALT (SGPT) 27 U/L (0-50); AST (SGOT) 55 U/L (17-59); Albumin 2.8 g/dl (3.5-5.0); Alkaline Phosphatase 152 U/L (38-126); Blood Urea Nitrogen 20 mg/dl (9-20); Calcium 8.4 mg/dl (8.4-10.2); Carbon Dioxide 18 mmol/L (22-30); Chloride 108 mmol/L (98-107); Glucose 218 mg/dl (70-99); Potassium 4.4 mmol/L (3.5-5.1); Sodium 137 mmol/L (135-145); Total Bilirubin 0.8 mg/dl (0.2-1.3); eGFR 44.38
== END ==
LOC: REG 13:38
PROVIDERS: ATTENDING PHYSICIAN Student in an Organized Health Care Education/Training Program; FAMILY PHYSICIAN Family Medicine; REFERRING PHYSICIAN Internal Medicine Cardiovascular Disease
DX: B37.7 Candidal sepsis (principal); Z95.2 Presence of prosthetic heart valve; Z79.01 Long term (current) use of anticoagulants; I42.9 Cardiomyopathy, unspecified
CPT/HCPCS: 36415; 80053; 85610